=== PATIENT | male | born 1940 | race Caucasian/White ===

== ENCOUNTER → 2016-08-13 | Outpatient (CLI) | payer MEDICARE ==
[~2016-08-13] MED LIST: /ESOM40CA PO; /PANT40TA PO; ADV250INH INH; ALBUTEROL MDI INH; ASCO500T PO; AUGM875T27 PO; BENA25TA4 PO; BISAC5TA PO; CALC950T PO; CELEBREX PO; CIPR500T3 PO; CONRAY-43 43% 50ML VIAL (Q9960) As Ordered ONE; DULC10SU9 PR; FISH1000 PO; FLAG500T PO; FLUTICASONE INH; GLUCOSAMINE PO; LIDOCAINE 1% MDV 20ML VIAL As Ordered ONE; LOPR50TA PO; MOM30SS PO; MONT10TA2 PO; MULTTAB4 PO; NIFEDIPINE PO; OXYC5CAP2 PO; PERCOCET PO; SALMETEROL INH; SENO8.6T9 PO; SIME80TA PO; SIMV80TA PO; SING5CHW PO; TIMO0.5S7 OU; TYLE325T5 PO; WARF05TA PO; methylPREDNISolone SUSP 40 MG/ML (DEPO-medrol) VIAL (J1030) As Ordered ONE
--- NOTE | 2016-08-13 18:40 | REP ---
Left hip injection The procedure was performed under the direct supervision of Dr. Smalls. The benefits and risks including but not limited to pain infection and bleeding and anaphylaxis were explained to the patient and informed consent was obtained. The left femoral neck was localized using fluoroscopic guidance. The skin was prepped and draped in a sterile fashion. 1% lidocaine was used as a local anesthetic. Using fluoroscopic guidance a 22-gauge spinal needle was inserted and advanced to the femoral neck. 0.5 ml of Conray 43 was injected to verify placement. Five ml of a solution containing 3 ml of 1% Xylocaine and 2 ml of Depo-Medrol 40 mg was injected. The needle was then removed. The patient tolerated the procedure well and there were no immediate complications. 3 seconds of fluoro time was utilized for this procedure. Reviewed by XENIA Schmidt 08/13/2016 03:54 PSigned by Brian Smalls MD 08/13/2016 06:32 P
== END ==
LOC: M RADPRO 09:28
PROVIDERS: ATTEND Orthopaedic Surgery
DX: M16.12 Unilateral primary osteoarthritis, left hip (principal)
CPT/HCPCS: 20610; 77002; J1030; Q9960

== ENCOUNTER → 2016-11-13 | Outpatient (REF) | payer MEDICARE ==
[~2016-11-13] MED LIST changes: -CONRAY-43 43% 50ML VIAL (Q9960) As Ordered ONE; -LIDOCAINE 1% MDV 20ML VIAL As Ordered ONE; -methylPREDNISolone SUSP 40 MG/ML (DEPO-medrol) VIAL (J1030) As Ordered ONE
[2016-11-13 12:24] LABS: MEAN CORPUSCULAR HEMOGLOBIN 35.7 pg (27.0-33.0); MEAN CORPUSCULAR HGB CONC 34.4 g/dl (32.0-36.5); MEAN CORPUSCULAR VOLUME 103.8 fl (80.0-96.0); RED CELL DISTRIBUTION WIDTH 13.5 % (11.5-14.5); WHITE BLOOD COUNT 4.6 K/mm3 (4.0-10.0)
[2016-11-13 13:45] LABS: ALBUMIN 4.1 GM/DL (3.2-5.2); ALBUMIN/GLOBULIN RATIO 1.41 (1.00-1.93); ALKALINE PHOSPHATASE 67 U/L (45-117); ALT/SGPT 45 U/L (12-78); ANION GAP 8 MEQ/L (8-16); AST/SGOT 26 U/L (15-37); BILIRUBIN,TOTAL 0.7 MG/DL (0.2-1.0); BLOOD UREA NITROGEN 9 MG/DL (7-18); CALCIUM LEVEL 8.7 MG/DL (8.8-10.2); CARBON DIOXIDE LEVEL 31 MEQ/L (21-32); CHLORIDE LEVEL 101 MEQ/L (98-107); CHOLESTEROL LEVEL 190 MG/DL (<200); CREATININE FOR GFR 0.96 MG/DL (0.70-1.30); GLOMERULAR FILTRATION RATE > 60.0 (>42); GLUCOSE, FASTING 101 MG/DL (83-110); POTASSIUM SERUM 4.1 MEQ/L (3.5-5.1); SODIUM LEVEL 140 MEQ/L (136-145); TRIGLYCERIDES LEVEL 74 MG/DL (<150)
== END ==
LOC: M LABDRAW1 11:48
PROVIDERS: ATTEND Family Medicine
DX: I10 Essential (primary) hypertension (principal); N40.0 Benign prostatic hyperplasia without lower urinary tract symptoms; R53.83 Other fatigue
CPT/HCPCS: 80053; 80061; 84443; 85027; G0103

== ENCOUNTER 2017-02-16 12:38 | Emergency (ER) | payer OTHER, MEDICARE ==
[~2017-02-16] VITALS: Ht 177.8 cm; Wt 72.7 kg
[2017-02-16] MEDS ORDERED: DIGO0.12 (13:08)
[2017-02-16] MEDS ORDERED: XARE20TA PO (13:09)
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
[2017-02-16 14:51] VITALS: BP 128/72
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
== END 2017-02-16 15:13 | disposition home or self-care (01) ==
LOC: M ED 12:38
DX: S16.1XXA Strain of muscle, fascia and tendon at neck level, initial encounter (principal); S13.4XXA Sprain of ligaments of cervical spine, initial encounter; V49.40XA Driver injured in collision with unspecified motor vehicles in traffic accident, initial encounter; Y92.410 Unspecified street and highway as the place of occurrence of the external cause; Y93.89 Activity, other specified; Y99.9 Unspecified external cause status

== ENCOUNTER → 2017-09-23 | Outpatient (CLI) | payer OTHER ==
[2017-09-23 10:19] LABS: HEMATOCRIT 42.8 % (42.0-52.0); HEMOGLOBIN 14.5 g/dl (14.0-18.0); MEAN CORPUSCULAR HEMOGLOBIN 34.9 pg (27.0-33.0); MEAN CORPUSCULAR HGB CONC 33.9 g/dl (32.0-36.5); MEAN CORPUSCULAR VOLUME 102.9 fl (80.0-96.0); PLATELET COUNT, AUTOMATED 215 10^3/uL (150-450); RED BLOOD COUNT 4.16 10^6/uL (4.30-6.10); RED CELL DISTRIBUTION WIDTH 13.7 % (11.5-14.5); WHITE BLOOD COUNT 4.4 10^3/uL (4.0-10.0)
[2017-09-23 10:55] LABS: ALBUMIN 4.1 GM/DL (3.2-5.2); ALBUMIN/GLOBULIN RATIO 1.24 (1.00-1.93); ALKALINE PHOSPHATASE 116 U/L (45-117); ALT/SGPT 33 U/L (12-78); ANION GAP 6 MEQ/L (8-16); AST/SGOT 27 U/L (7-37); BILIRUBIN,TOTAL 0.8 MG/DL (0.2-1.0); BLOOD UREA NITROGEN 11 MG/DL (7-18); CALCIUM LEVEL 9.6 MG/DL (8.8-10.2); CARBON DIOXIDE LEVEL 34 MEQ/L (21-32); CHLORIDE LEVEL 103 MEQ/L (98-107); CHOLESTEROL LEVEL 216 MG/DL (<200); CHOLESTEROL RISK RATIO 3.042 (<5); CREATININE FOR GFR 0.91 MG/DL (0.70-1.30); GLOMERULAR FILTRATION RATE > 60.0 (>42); GLUCOSE, FASTING 90 MG/DL (70-100); HDL CHOLESTEROL 71 MG/DL (>40); LDL CHOLESTEROL 127.2 MG/DL (<100); NON-HDL-C 145 MG/DL; POTASSIUM SERUM 4.3 MEQ/L (3.5-5.1); PROSTATIC SPECIFIC AG MONITOR 2.28 NG/ML (< 4.0); SODIUM LEVEL 143 MEQ/L (136-145); TOTAL PROTEIN 7.4 GM/DL (6.4-8.2); TRIGLYCERIDES LEVEL 89 MG/DL (<150)
[2017-09-23 11:01] LABS: ESTIMATED AVERAGE GLUCOSE 108 MG/DL (60-110); HEMOGLOBIN A1c 5.4 %
== END ==
LOC: M LAB 09:28
DX: R53.83 Other fatigue (principal); I10 Essential (primary) hypertension; J44.9 Chronic obstructive pulmonary disease, unspecified
CPT/HCPCS: 71046

== ENCOUNTER → 2018-08-24 | Outpatient (CLI) | payer MEDICARE, OTHER ==
[~2018-08-24] MED LIST changes: +DIGO0.12; +XARE20TA PO
--- NOTE | 2018-08-26 11:06 | RADONC ---
RADIATION ONCOLOGY CONSULTATION NOTE DATE: 08/24/2018 CHART #: [id number] DIAGNOSIS: Basal cell carcinoma of the right cheek. ECOG PERFORMANCE STATUS: 0. CONSULTATION NOTE: Mr. Menendez is a very pleasant 78-year-old white male with the diagnosis of a small basal cell carcinoma of the right cheek who is presenting to us status post excision for consideration of postoperative radiation therapy in attempt to increase the likelihood of achieving local control and cure. HISTORY OF PRESENT ILLNESS: The patient was in his usual state of health and noted a small lesion over his right cheek. On 07/29/2018, the patient underwent excision and pathology revealed a basal cell carcinoma with focal surface ulceration and focal extension to the deep surgical margins at both ends. He is therefore being referred to me for consideration of external beam radiation therapy. PAST MEDICAL HISTORY: The patient's past medical history is positive for Raynaud's. He also has arthritis and cataracts. He has had bilateral cataract surgery. He has a history of cardiac problems and thyroid issues. He had a cholecystectomy as well as carpal tunnel surgery and left knee replacement. ALLERGIES: The patient has NO KNOWN DRUG ALLERGIES. SOCIAL HISTORY: The patient quit smoking in 1969. He had smoked 15 years. He does not abuse alcohol. FAMILY HISTORY: The patient's family history is negative for skin cancers or other malignancies. REVIEW OF SYSTEMS: The patient's review of systems is positive for some occasional chills as well as hearing loss but is otherwise noncontributory. Denies nausea, vomiting, fevers, chills, night sweats, diplopia, headaches, anxiety or depression, anorexia, weight loss, visual disturbances, chest pain, urinary or bowel difficulties, bone pain, or neurological problems. PHYSICAL EXAMINATION: The patient is a well-developed, well-nourished white male in no acute distress. HEENT: Exam is normocephalic, atraumatic. Extraocular movements are intact. There is a healed surgical scar present over his right cheek consistent with his above history. There are no other suspicious lesions present over his face or neck. There is no palpable preauricular, cervical, supraclavicular or infraclavicular lymphadenopathy present. His lungs are clear to auscultation and percussion. His heart has a regular rate and rhythm. ASSESSMENT: Mr. Menendez is presenting to us today with a basal cell carcinoma involving his right cheek with multiple positive margins status post excision. Clearly, the patient is a candidate for external beam radiation therapy and I have so informed him. I have discussed with the patient in detail the potential benefits as well as possible acute and chronic sequelae of external beam radiation therapy. We have discussed logistics of treatment planning, simulation and subsequent fractionated daily radiation treatments. I have scheduled the patient for the next available simulation slot and radiation treatments will begin subsequently. Thank you for allowing us to participate in the care of this very pleasant gentleman. If I could be of any further assistance or provide you with any information, please feel free to contact me at anytime. As always warm regards. cc: Lopez Connor MD
== END ==
LOC: M ONCR 09:50
PROVIDERS: ATTEND Radiology Radiation Oncology
DX: C44.319 Basal cell carcinoma of skin of other parts of face (principal)

== ENCOUNTER → 2018-09-16 | Outpatient (RCR) | payer MEDICARE ==
--- NOTE | 2018-08-27 13:39 | RADONC ---
RADIATION ONCOLOGY SIMULATION NOTE DATE: 08/26/2018 CHART NUMBER: [id number] Mr. Menendez was taken to the linear accelerator today for clinical setup of his electron beam right cheek field. Setup was accomplished without difficulty or discomfort. Radiation treatment planning is underway and radiation treatments will begin subsequently. An immobilization device was created without difficulty or discomfort. It will be used throughout the course of treatment. I was physically present throughout the course of CT simulation.
--- NOTE | 2018-09-07 19:42 | RADONC ---
RADIATION ONCOLOGY PROGRESS NOTE DATE OF SERVICE: 09/06/2018 CHART NUMBER: [id number]. DIAGNOSIS: Basal cell carcinoma, right cheek ECOG PERFORMANCE STATUS: Zero. PROGRESS NOTE: Mr. Menendez with a diagnosis of basal cell carcinoma of the right cheek is being treated post excision to prevent a local regional recurrence and his dose thus far is 1250 cGy of an anticipated 5000 cGy. He is tolerating his therapy quite well. REVIEW OF SYSTEMS: He denies any nausea, vomiting, coughing, sputum production, difficulty swallowing, odynophagia, or dysphagia. The remainder of the review of systems is noncontributory. PHYSICAL EXAMINATION: No evidence of desquamation or erythema. No adenopathy is appreciated. The remainder of the physical examination is unchanged. IMPRESSION: Tolerating therapy well. PLAN: Treatments to continue. Thank you for allowing us the opportunity of participation in the management of this patient. Most sincerely.
--- NOTE | 2018-09-14 08:38 | RADONC ---
RADIATION ONCOLOGY PROGRESS NOTE DATE OF SERVICE: 09/13/2018 CHART NUMBER: [id number]. PROGRESS NOTE: Mr. Menendez is presently at a dose of 2500 cGy to his right cheek and is tolerating treatments quite well at this point with no complaints related to his radiation therapy. He is having no skin pain or other problems. REVIEW OF SYSTEMS: The patient's review of systems is noncontributory. He denies nausea, vomiting, fevers, chills, night sweats, diplopia, headaches, anxiety or depression, anorexia, weight loss, visual disturbances, chest pain, urinary or bowel difficulties, bone pain, or neurological problems. PHYSICAL EXAMINATION: The patient's skin is in good condition with no evidence of moist or dry desquamation. The remainder of his physical exam remains unchanged. Mr. Menendez is tolerating treatments quite well, and radiation will continue as scheduled.
== END ==
LOC: M ONCR 08-26 11:38
PROVIDERS: ATTEND Radiology Radiation Oncology
DX: C44.309 Unspecified malignant neoplasm of skin of other parts of face (principal)

== ENCOUNTER 2018-09-27 09:29 | Outpatient (RCR) | payer MEDICARE ==
--- NOTE | 2018-09-21 09:46 | RADONC ---
RADIATION ONCOLOGY DATE: 09/20/2018 CHART NUMBER: [id number] Mr. Menendez is presently at a dose of 3750 cGy to his right cheek and is tolerating treatments quite well at this point with no complaints related to his radiation therapy other than some tenderness of the skin. REVIEW OF SYSTEMS: The patient's review of systems is basically noncontributory. He denies nausea, vomiting, fevers, chills, night sweats, diplopia, headaches, anxiety or depression, anorexia, weight loss, visual disturbances, chest pain, urinary or bowel difficulties, bone pain, or neurological problems. PHYSICAL EXAMINATION: The patient's skin overall is in good condition with no evidence of moist or dry desquamation. There is some radiation tanning and erythema present. The remainder of his physical exam remains unchanged. Mr. Menendez is tolerating treatments quite well and radiation will continue as scheduled.
--- NOTE | 2018-09-28 15:24 | RADONC ---
RADIATION ONCOLOGY TREATMENT SUMMARY DATE OF SERVICE: 09/27/2018 CHART NUMBER: #[id number] DIAGNOSIS: Basal cell carcinoma of the right cheek. ECOG PERFORMANCE STATUS: 0 TREATMENT SUMMARY: Mr. Menendez is a very pleasant, 78-year-old white male with the diagnosis of a small basal cell carcinoma of his right cheek who presented to us for consideration of postoperative radiation therapy in attempt to achieve local control and cure. We treated the patient to his right cheek for a total dose of 5000 cGy delivered in 20 fractions of 250 cGy each over 27 elapsed days from 08/31/2018 through 09/27/2018. The patient's right cheek was treated on the linear accelerator utilizing a 6 MeV electron beam prescribed to the 90% isodose line via non phos technique. 0.5 cm of tissue equivalent bolus was placed over the field. Mr. Menendez tolerated his treatments quite well and was able to complete therapy as prescribed without interruption. The patient is scheduled see me again in 1 month for further followup. He will also continue to be followed by his other physicians as well. Thank you for allowing us to participate in the care of this very pleasant gentleman. If I can be of any further assistance or provide you with any information, please feel free to contact me anytime. As always, warm regards.
== END 2018-10-17 ==
LOC: M ONCR 09:29
PROVIDERS: ATTEND Radiology Radiation Oncology
DX: C44.309 Unspecified malignant neoplasm of skin of other parts of face (principal)

== ENCOUNTER → 2018-10-27 | Outpatient (CLI) | payer MEDICARE ==
[~2018-10-27] MED LIST changes: -/ESOM40CA PO; -/PANT40TA PO; +NEXI1CAP3 PO; +OXYC1TAB23 PO; -PERCOCET PO; +PROT1TAB2 PO
--- NOTE | 2018-10-27 11:28 | RADONC ---
RADIATION ONCOLOGY FOLLOWUP NOTE DATE: 10/27/2018 CHART NUMBER: [id number] DIAGNOSIS: Basal cell carcinoma of right cheek. ECOG PERFORMANCE STATUS: 0. FOLLOWUP NOTE: Mr. Menendez is a very pleasant 78-year-old white male with the diagnosis of a small basal cell carcinoma of his right cheek who is presenting to us today for routine followup visit 1 month post completion of external beam radiation therapy. The patient presents today reporting that he is doing quite well with no complaints at this time related to his radiation therapy or disease. He has no skin pain or other problems. The patient's review of systems is noncontributory. He denies nausea, vomiting, fevers, chills, night sweats, diplopia, headaches, anxiety or depression, anorexia, weight loss, visual disturbances, chest pain, urinary or bowel difficulties, bone pain, or neurological problems. PHYSICAL EXAMINATION: The patient's skin is in excellent condition with no evidence of moist or dry desquamation. There is no nodularity, ulceration, or residual disease. There is no palpable, preauricular, cervical, supraclavicular, or axillary lymphadenopathy present. ASSESSMENT: The patient is clinically HONEY at this time and is being discharged from our followup except on an as needed basis. He will continue his followup with his other physicians in the meantime. cc: Lopez Connor MD
== END ==
LOC: M ONCR 09:25
PROVIDERS: ATTEND Radiology Radiation Oncology
DX: C44.309 Unspecified malignant neoplasm of skin of other parts of face (principal)

== ENCOUNTER 2019-03-01 16:21 | Emergency (ER) | payer MEDICARE ==
[~2019-03-01] VITALS: Ht 182.9 cm; Wt 72.0 kg
[2019-03-01 16:21] VITALS: BP 149/65
[~2019-03-01 16:21] MED LIST changes: -DIGO0.12; +DIGO0.12 PO
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
== END 2019-03-01 18:44 | disposition home or self-care (01) ==
LOC: M ED 16:21
DX: S00.81XA Abrasion of other part of head, initial encounter (principal); S00.83XA Contusion of other part of head, initial encounter; W18.39XA Other fall on same level, initial encounter; Y92.410 Unspecified street and highway as the place of occurrence of the external cause; I10 Essential (primary) hypertension; I48.91 Unspecified atrial fibrillation; Z79.899 Other long term (current) drug therapy; Z79.01 Long term (current) use of anticoagulants

== ENCOUNTER 2019-03-15 08:29 | Emergency (ER) | payer OTHER, MEDICARE ==
[~2019-03-15] VITALS: Ht 177.8 cm; Wt 70.5 kg
[2019-03-15] MEDS ORDERED: NIAC500T9 PO (08:44)
[2019-03-15] MEDS ORDERED: CALCCHW4 PO (08:44)
[2019-03-15] MEDS ORDERED: VITA500C24 PO (08:44)
[2019-03-15] MEDS ORDERED: MULTCAP PO (08:44)
[2019-03-15] MEDS ORDERED: D 101000 PO (08:44)
[2019-03-15] MEDS ORDERED: REST0.05 OP (08:45)
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
[2019-03-15 10:08] VITALS: BP 137/63
== END 2019-03-15 10:07 | disposition home or self-care (01) ==
LOC: EDSEX 08:29 → EDBD 08:29 → M ED 09:12
DX: S09.90XA Unspecified injury of head, initial encounter (principal); V47.0XXA Car driver injured in collision with fixed or stationary object in nontraffic accident, initial encounter; Y92.410 Unspecified street and highway as the place of occurrence of the external cause; I48.91 Unspecified atrial fibrillation; I10 Essential (primary) hypertension; J44.9 Chronic obstructive pulmonary disease, unspecified; G47.30 Sleep apnea, unspecified; Z87.19 Personal history of other diseases of the digestive system; Z79.899 Other long term (current) drug therapy; Z79.01 Long term (current) use of anticoagulants

== ENCOUNTER → 2019-05-11 | Outpatient (REF) | payer MEDICARE, OTHER ==
[~2019-05-11] MED LIST changes: +CALCCHW4 PO; +D 101000 PO; +MULTCAP PO; +NIAC500T9 PO; +REST0.05 OP; +VITA500C24 PO
[2019-05-11 12:42] LABS: HEMATOCRIT 36.8 % (42.0-52.0); HEMOGLOBIN 12.2 g/dl (13.5-17.5); MEAN CORPUSCULAR HEMOGLOBIN 36.6 pg (27.0-33.0); MEAN CORPUSCULAR HGB CONC 33.2 g/dl (32.0-36.5); MEAN CORPUSCULAR VOLUME 110.5 fl (80.0-96.0); PLATELET COUNT, AUTOMATED 177 10^3/uL (150-450); RED BLOOD COUNT 3.33 10^6/uL (4.30-6.10); WHITE BLOOD COUNT 8.4 10^3/uL (4.0-10.0)
[2019-05-11 13:19] LABS: ERYTHROCYTE SEDIMENTATION RATE 17 mm/hr (0-20)
[2019-05-11 14:00] LABS: ATYPICAL LYMPH 1 % (0-5); BASOPHILS 1 % (0-1); LYMPHOCYTES 34 % (16-44); METAMYELOCYTES 1 % (0-0); MONOCYTES 1 % (0-5); MYELOCYTES 3 % (0-0); NEUTROPHILS 57 % (28-66); NUCLEATED RED BLOOD CELL 1 % (0-0)
[2019-05-11 14:01] LABS: HYPOCHROMASIA 1+; PLATELET ESTIMATE NORMAL (NORMAL)
[2019-05-11 14:02] LABS: ANISOCYTOSIS 2+
== END ==
LOC: M LABDRAW1 12:08
PROVIDERS: ATTEND Orthopaedic Surgery
DX: Z96.652 Presence of left artificial knee joint (principal)

== ENCOUNTER → 2019-12-24 | Outpatient (CLI) | payer MEDICARE ==
[2019-12-24 09:02] LABS: HEMATOCRIT 33.3 % (42.0-52.0); HEMOGLOBIN 10.5 g/dl (13.5-17.5); MEAN CORPUSCULAR HEMOGLOBIN 34.8 pg (27.0-33.0); MEAN CORPUSCULAR HGB CONC 31.5 g/dl (32.0-36.5); MEAN CORPUSCULAR VOLUME 110.3 fl (80.0-96.0); PLATELET COUNT, AUTOMATED 186 10^3/uL (150-450); RED BLOOD COUNT 3.02 10^6/uL (4.30-6.10); WHITE BLOOD COUNT 4.6 10^3/uL (4.0-10.0)
[2019-12-24 09:33] LABS: ALBUMIN 3.7 GM/DL (3.2-5.2); ALT/SGPT 33 U/L (12-78); BILIRUBIN,TOTAL 0.7 MG/DL (0.2-1.0); BLOOD UREA NITROGEN 12 MG/DL (7-18); CALCIUM LEVEL 8.7 MG/DL (8.8-10.2); CARBON DIOXIDE LEVEL 30 MEQ/L (21-32); CHLORIDE LEVEL 107 MEQ/L (98-107); CHOLESTEROL LEVEL 138 MG/DL (<200); GLOMERULAR FILTRATION RATE > 60.0 (>35); GLUCOSE, FASTING 93 MG/DL (70-100); HDL CHOLESTEROL 60 MG/DL (>40); LDL CHOLESTEROL 66 MG/DL (<100); NON-HDL-C 78 MG/DL; POTASSIUM SERUM 4.1 MEQ/L (3.5-5.1); SODIUM LEVEL 143 MEQ/L (136-145); TOTAL PROTEIN 6.4 GM/DL (6.4-8.2); TRIGLYCERIDES LEVEL 59 MG/DL (<150)
[2019-12-26 10:48] LABS: TESTOSTERONE 671 NG/DL (241-827)
== END ==
LOC: M LAB 08:07
PROVIDERS: ATTEND Family Medicine
DX: I10 Essential (primary) hypertension (principal); E03.9 Hypothyroidism, unspecified; N40.0 Benign prostatic hyperplasia without lower urinary tract symptoms
CPT/HCPCS: 36415; 80053; 80061; 84403; 84443; 85027; G0103

== ENCOUNTER 2020-05-28 19:29 | Inpatient (IN) | payer MEDICARE ==
[~2020-05-28] VITALS: Ht 177.8 cm; Wt 69.3 kg
[~2020-05-28 19:29] MED LIST changes: -NIAC500T9 PO; +NIAC500T93 PO
[2020-05-28 20:50] LABS: HEMATOCRIT 21.4 % (42.0-52.0); MEAN CORPUSCULAR HEMOGLOBIN 34.7 pg (27.0-33.0); MEAN CORPUSCULAR HGB CONC 30.8 g/dl (32.0-36.5); MEAN CORPUSCULAR VOLUME 112.6 fl (80.0-96.0); PLATELET COUNT, AUTOMATED 144 10^3/uL (150-450); WHITE BLOOD COUNT 4.5 10^3/uL (4.0-10.0)
--- NOTE | 2020-05-28 20:51 | REPVR ---
PROCEDURE INFORMATION: Exam: XR Chest, 1 View Exam date and time: 05/28/2020 8:41 PM Age: 80 years old Clinical indication: Chest pain; Type not specified TECHNIQUE: Imaging protocol: XR of the chest Views: 1 view. COMPARISON: CR Chest, 2 view PA, Lat 09/23/2017 9:57 AM FINDINGS: Lungs: Unremarkable. No consolidation. Pleural space: Bibasilar pleural calcifications. Heart/Mediastinum: Cardiomegaly. Bones/joints: Unremarkable. IMPRESSION: 1. Cardiomegaly. 2. No acute findings. Electronically signed by: Bertram Lara On 05/28/2020 20:51:06 PM
[2020-05-28 21:00] LABS: HEMOGLOBIN 6.6 g/dl (13.5-17.5)
[2020-05-28 21:02] LABS: INR 1.6; PROTHROMBIN TIME 19.4 SECONDS (12.5-14.3)
[2020-05-28 21:03] LABS: PARTIAL THROMBOPLASTIN TIME 35.8 SECONDS (24.2-38.5)
[2020-05-28 21:13] LABS: ANISOCYTOSIS 2+; BASOPHILS 2 % (0-1); EOSINOPHILS 1 % (0-3); LYMPHOCYTES 32 % (16-44); METAMYELOCYTES 1 % (0-0); MONOCYTES 15 % (0-5); MYELOCYTES 2 % (0-0); NEUTROPHILS 47 % (28-66); PLATELET ESTIMATE NORMAL (NORMAL)
[2020-05-28 21:14] LABS: HYPOCHROMASIA 1+
[2020-05-28 21:17] LABS: GIANT PLATELETS 1+
[2020-05-28 21:29] LABS: BLOOD UREA NITROGEN 19 MG/DL (7-18); CALCIUM LEVEL 8.4 MG/DL (8.8-10.2); CARBON DIOXIDE LEVEL 29 MEQ/L (21-32); CHLORIDE LEVEL 107 MEQ/L (98-107); CK-MB VALUE MASS 1.4 NG/ML (<3.6); CPK CREATINE PHOSPHOKINASE 46 U/L (39-308); CREATININE FOR GFR 0.82 MG/DL (0.70-1.30); DIGOXIN LEVEL < 0.1 NG/ML (0.5-2.0); GLOMERULAR FILTRATION RATE > 60.0 (>35); GLUCOSE, FASTING 118 MG/DL (70-100); MB/CK RELATIVE INDEX 3.04 (< OR =4); NT-PRO BNP 2957 PG/ML (<450); POTASSIUM SERUM 4.3 MEQ/L (3.5-5.1); SODIUM LEVEL 141 MEQ/L (136-145); TROPONIN I 0.02 NG/ML (< 0.10)
[2020-05-28 22:29] VITALS: BP 108/54
[2020-05-28] MEDS ORDERED: GLUCTAB6 PO (22:45)
[2020-05-28] MEDS ORDERED: D31000TA2 PO (22:45)
[2020-05-28] MEDS ORDERED: ASCO500T PO (22:45)
[2020-05-28] MEDS ORDERED: TIMO0.5S29 OU (22:45)
[2020-05-28] MEDS ORDERED: OYST500T91 PO (22:45)
[2020-05-28] MEDS ORDERED: SIMV40TA20 PO (22:45)
[2020-05-28] MEDS ORDERED: REST0.05 OU (22:45)
[2020-05-28] MEDS ORDERED: OMEG10005 PO (22:45)
[2020-05-28] MEDS ORDERED: VITMTA PO (22:45)
[2020-05-28] MEDS ORDERED: MECL12.589 PO (22:45)
[2020-05-28] MEDS ORDERED: DOXY50TA3 PO (22:45)
[2020-05-28 22:46] VITALS: BP 105/52
[2020-05-28] MEDS ORDERED: PATIENT COMMENT (22:46)
[2020-05-28 23:27] VITALS: BP 124/58
[2020-05-28 23:29] VITALS: BP 118/57
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
[2020-05-29] VITALS (20 sets, daily range): BP systolic 97–130; BP diastolic 51–78
[2020-05-29] MEDS ORDERED: MOM 30ML SUSPENSION UDC PO PRN (01:00)
[2020-05-29] MEDS ORDERED: ACETAMINOPHEN TAB 650MG DOSE (2X325MG) PO PRN (01:00)
[2020-05-29] MEDS: PANTOPRAZOLE 40MG VIAL (C9113 PER 1) IV SCH ×3 (01:35→23:29)
[2020-05-29 02:50] LABS: BASO # 0.1 10^3/uL (0.0-0.2); BASO % 1.6 % (0.0-1.0); EOS # 0.1 10^3/uL (0.0-0.5); EOS % 1.8 % (0.0-3.0); HEMATOCRIT 27.4 % (42.0-52.0); LYMPH # 1.1 10^3/uL (1.5-5.0); MEAN CORPUSCULAR HEMOGLOBIN 32.2 pg (27.0-33.0); MEAN CORPUSCULAR HGB CONC 31.8 g/dl (32.0-36.5); MEAN CORPUSCULAR VOLUME 101.5 fl (80.0-96.0); MONO # 1.5 10^3/uL (0.0-0.8); NEUTROPHILS # 2.1 10^3/uL (1.5-8.5); NEUTROPHILS % 41.1 % (36.0-66.0); PLATELET COUNT, AUTOMATED 142 10^3/uL (150-450); WHITE BLOOD COUNT 5.1 10^3/uL (4.0-10.0)
[2020-05-29 03:00] LABS: HEMOGLOBIN 8.7 g/dl (13.5-17.5)
[2020-05-29 06:53] LABS: HEMOGLOBIN 8.3 g/dl (13.5-17.5); MEAN CORPUSCULAR HEMOGLOBIN 32.4 pg (27.0-33.0); MEAN CORPUSCULAR HGB CONC 31.9 g/dl (32.0-36.5); MEAN CORPUSCULAR VOLUME 101.6 fl (80.0-96.0); PLATELET COUNT, AUTOMATED 138 10^3/uL (150-450); RED BLOOD COUNT 2.56 10^6/uL (4.30-6.10); WHITE BLOOD COUNT 5.2 10^3/uL (4.0-10.0)
[2020-05-29 07:21] LABS: BLOOD UREA NITROGEN 18 MG/DL (7-18); CALCIUM LEVEL 8.2 MG/DL (8.8-10.2); CARBON DIOXIDE LEVEL 26 MEQ/L (21-32); CHLORIDE LEVEL 109 MEQ/L (98-107); CREATININE FOR GFR 0.76 MG/DL (0.70-1.30); GLOMERULAR FILTRATION RATE > 60.0 (>35); GLUCOSE, FASTING 93 MG/DL (70-100); NT-PRO BNP 3062 PG/ML (<450); POTASSIUM SERUM 3.9 MEQ/L (3.5-5.1); SODIUM LEVEL 142 MEQ/L (136-145)
[2020-05-29] MEDS: SYMBICORT 160/4.5MCG INHALER 6GM INH SCH ×2 (07:55→20:22)
[2020-05-29] MEDS: SIMVASTATIN 40 MG TAB PO SCH (08:32)
[2020-05-29] MEDS: TIMOLOL MALEATE 0.5% OPHTH SOLN 5 ML OU SCH (08:32)
[2020-05-29] MEDS: SUCRALFATE SUSP 1GM/10ML UD PO SCH ×4 (08:32→23:28)
[2020-05-29 11:40] LABS: FERRITIN 391 NG/ML (26-388); IRON (FE) 220 UG/DL (65-175); PERCENT SATURATION 92.4 % (19.7-50.0); TOTAL IRON BINDING CAPACITY 238 UG/DL (250-450); TOTAL PROTEIN 5.5 GM/DL (6.4-8.2)
[2020-05-29 12:14] LABS: HEMATOCRIT 28.4 % (42.0-52.0); HEMOGLOBIN 8.8 g/dl (13.5-17.5)
--- NOTE | 2020-05-29 14:26 | ECGEPIP ---
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
[2020-05-29 15:15] LABS: ALBUMIN % 64.1 % (55.8-66.1)
[2020-05-29 15:16] LABS: ALBUMIN 3.53 GM/DL (3.29-5.55); ALPHA-1-GLOBULIN % 4.3 % (2.9-4.9); ALPHA-1-GLOBULINS 0.24 GM/DL (0.17-0.41); ALPHA-2-GLOBULINS 0.51 GM/DL (0.42-0.99); ALPHA-2-GLOBULINS % 9.2 % (7.1-11.8); BETA-1-GLOBULINS 0.31 GM/DL (0.28-0.60); BETA-1-GLOBULINS % 5.7 % (4.7-7.2); BETA-2-GLOBULINS 0.25 GM/DL (0.19-0.55); BETA-2-GLOBULINS % 4.6 % (3.2-6.5); GAMMA GLOBULIN % 12.1 % (11.1-18.8); GAMMA GLOBULINS 0.67 GM/DL (0.65-1.58)
[2020-05-29 18:09] LABS: HEMATOCRIT 28.2 % (42.0-52.0); HEMOGLOBIN 8.8 g/dl (13.5-17.5)
--- NOTE | 2020-05-29 18:57 | IPNPDOC ---
Text Note Date of Service The patient was seen on 05/29/20. NOTE Subjective: No complaints this morning but says has not been out of bed yet so does not know if he will get SOB on walking or not. Denies any overt bleeding from anywhere. He denies having any liquid black stools of bright red blood stools. PHYSICAL EXAMINATION: VItals :As below. Constitutional: Awake and alert, in no apparent distress ENT: Sclera are clear. Mucosa is moist. Respiratory: Bibasilar basal fibrotic crackles. No respiratory distress. No use of accessory muscles. Breathing comfortably on room air saturating 98% Cardiovascular: Heart rate is regular, 2+ systolic murmur, no rub or gallop Gastrointestinal: Abdomen is soft, non distended, non tender, BS present. Musculoskeletal: No edema. RUE 5/5, LUE 5/5, BLE 5/5 Neurologic: No focal neurological deficit. Mental Status: A&O x3, normal affect Skin: Warm, dry Labs and radiology: reviewed Assessment and Plan: 80M PMHx COPD, HTN, paroxysmal A fib, glaucoma, Chronic anemia from 2018 presents to ED for dizziness and weakness and exertional SOB at home for several days. He was found to have a hb of 6.6 with no overt bleeding but had a positive stool guaic. Last colonoscopy was 20 years ago he is unsure of the results but thinks they were normal. HE was admitted for symptomatic anemia. # Symptomatic anemia: Macrocytic. s/p 2 units of PRBC, will give another unit. will check vit B12, Iron studies, SPEP, folate, stool for occult blood. Does not seem to be having any large onging GIB as H/H responded appropriately to PRBC transfusion and has been stable with stable vitals. However may be having a slow GIB. Patient will need Colonoscopy and EGD which will be scheduled as an outpatient Had EGD and colonoscopy in [address] Prakash. will need a hematology referral. COPD/ Bibasilar pleural calcification/pulmonary hypertension continue home inhalers. Elevated BNP/ Mild aortic stenosis However echo reviewed from 2012 reveals mild calcific aortic stenosis with recommended follow up study in 2 years, Therefore due to concern of progression of his aortic stenosis as a possible contributor to his symptoms new echo ordered. HTN: Currently normotensive. Monitor and titrate medications as needed. Paroxysmal Afib: EKG in ED showing NSR. Regular HR on exam. On xarelto. H/o Choledocolithiasis s/p ERCP, sphincterotomy and biliary stent placement and removal in 2012 DVT prophylaxis: SCDs only due to GI bleed VS,Fishbone, I+O VS, Fishbone, I+O Laboratory Tests 05/28/20 20:43 05/29/20 02:37 05/29/20 05:50 Vital Signs Date Time Temp Pulse Resp B/P (MAP) Pulse Ox O2 Delivery O2 Flow Rate FiO2 05/29/20 08:00 98.4 72 16 118/56 (76) 99 Room Air I&O- Last 24 Hours up to 6 AM 05/29/20 05:59 Intake Total 1150 ml Output Total 0 ml Balance 1150 ml SHAWN HUTCHISON MD May 29, 2020 10:03
[2020-05-29] MEDS ORDERED: FUROSEMIDE 20MG/2ML VIAL (J1940) IV ONE (19:00)
[2020-05-29] MEDS: SENOKOT S TAB PO SCH (23:29)
[2020-05-30 00:10] LABS: HEMATOCRIT 32.5 % (42.0-52.0); HEMOGLOBIN 10.6 g/dl (13.5-17.5)
[2020-05-30 00:26] VITALS: BP 114/74
[2020-05-30 06:00] VITALS: BP 106/70
[2020-05-30 06:24] LABS: BASO # 0.1 10^3/uL (0.0-0.2); BASO % 1.5 % (0.0-1.0); EOS # 0.1 10^3/uL (0.0-0.5); EOS % 1.5 % (0.0-3.0); HEMOGLOBIN 10.3 g/dl (13.5-17.5); LYMPH % 17.1 % (24.0-44.0); MEAN CORPUSCULAR HEMOGLOBIN 32.2 pg (27.0-33.0); MEAN CORPUSCULAR HGB CONC 32.2 g/dl (32.0-36.5); MONO # 2.1 10^3/uL (0.0-0.8); MONO % 34.5 % (0.0-5.0); NEUTROPHILS # 2.5 10^3/uL (1.5-8.5); NEUTROPHILS % 41.2 % (36.0-66.0); PLATELET COUNT, AUTOMATED 150 10^3/uL (150-450)
[2020-05-30 06:44] LABS: BLOOD UREA NITROGEN 16 MG/DL (7-18); CALCIUM LEVEL 8.9 MG/DL (8.8-10.2); CARBON DIOXIDE LEVEL 31 MEQ/L (21-32); CHLORIDE LEVEL 105 MEQ/L (98-107); CREATININE FOR GFR 0.93 MG/DL (0.70-1.30); GLOMERULAR FILTRATION RATE > 60.0 (>35); GLUCOSE, FASTING 96 MG/DL (70-100); POTASSIUM SERUM 3.7 MEQ/L (3.5-5.1); SODIUM LEVEL 141 MEQ/L (136-145)
[2020-05-30] MEDS: SYMBICORT 160/4.5MCG INHALER 6GM INH SCH ×2 (07:50→19:12)
[2020-05-30] MEDS: SUCRALFATE SUSP 1GM/10ML UD PO SCH ×4 (08:21→20:09)
[2020-05-30] MEDS: SIMVASTATIN 40 MG TAB PO SCH (08:21)
[2020-05-30] MEDS: PANTOPRAZOLE 40MG VIAL (C9113 PER 1) IV SCH ×2 (08:22→20:09)
[2020-05-30] MEDS: SENOKOT S TAB PO SCH ×2 (08:22→20:09)
[2020-05-30] MEDS: TIMOLOL MALEATE 0.5% OPHTH SOLN 5 ML OU SCH (09:29)
--- NOTE | 2020-05-30 10:37 | ECHO ---
DATE OF PROCEDURE: 05/29/2020 Age: 80 Gender: M Height: 178 cm Weight: 68 kg REFERRING PHYSICIAN: Dr. Melchor INDICATION: Dizziness MEASUREMENTS: IVS 0.9 LV 4.4 LVPW 0.9 LA 4.8 Aorta 3.4 RV 3.5 IVC 1.8 Mitral E wave velocity is 131; A wave 100 E prime septal 4.4 E prime lateral 9.5 Left atrial volume index 56 FINDINGS: This study is of difficult technical quality with challenging visualization; underlying sinus rhythm. Left ventricle is normal size and overall has normal systolic function; I estimate ejection fraction (EF) around 60%. No distinct segmental wall motion abnormalities are appreciated. Right ventricle appears at least mildly dilated. Left atrium is severely enlarged. Right atrium appears normal. Aortic valve is heavily calcified. It is likely tricuspid and there is severe restriction of cusp mobility. There are also very prominent degenerative abnormalities of mitral valve with mitral annular calcifications, prominent thickening of both mitral leaflets, and restriction of leaflet mobility. By 2D imaging, I would not expect more than mild mitral stenosis though. There are normal tricuspid and pulmonic valves that were both relatively poorly seen. No pericardial effusion is noted. Inferior vena cava is normal size. Aortic root appears normal. Aortic arch was not well seen. Doppler interrogation of aortic valve reveals trace insufficiency and severe stenosis. Peak gradient was 53, mean gradient 36 and calculated aortic valve area was 0.9 cm2. There was mild mitral stenosis with mean gradient 3 mmHg; also, mild mitral insufficiency was seen. Mild tricuspid insufficiency is present. Calculated pulmonary artery pressure is at minimum in the 30s corresponding to a minimum mild pulmonary hypertension. Pulmonic valve exhibits trace insufficiency. Mitral inflow pattern and tissue Doppler imaging of mitral annulus are inconclusive for evaluation of diastolic dysfunction due to concomitant mitral stenosis. CONCLUSIONS: 1. Study is of fair technical quality with challenging visualization. Underlying sinus rhythm with frequent ectopic beats. 2. Normal left ventricle size with preserved left ventricular systolic function. 3. Probably severe aortic stenosis (mean gradient 36 mmHg, calculated aortic valve area (SHARON) 0.9 cm2), trace aortic insufficiency. 4. Mild mitral stenosis (mean gradient 3 mmHg), mild mitral insufficiency. 5. Likely normal central venous pressure and at least mild pulmonary hypertension. COMMENTS: It is conceivable that aortic stenosis is severe enough to cause symptoms of dizziness. [facility]
--- NOTE | 2020-05-30 13:00 | IPNPDOC ---
Text Note Date of Service The patient was seen on 05/30/20. NOTE Subjective: Patient seeing walking in the corridors with nurse. He looks com fortable walking and no dyspnea noted. No bowel movements in the hospital. No fever or chills. He reports that when ever he tries to lift some weight he was having lower chest pain. PHYSICAL EXAMINATION: VItals :As below. Constitutional: Awake and alert, in no apparent distress ENT: Sclera are clear. Mucosa is moist. Respiratory: Bibasilar basal fibrotic crackles. No respiratory distress. No use of accessory muscles. Breathing comfortably on room air saturating 98% Cardiovascular: Heart rate is regular, 2+ systolic murmur, no rub or gallop Gastrointestinal: Abdomen is soft, non distended, non tender, BS present. Musculoskeletal: No edema. RUE 5/5, LUE 5/5, BLE 5/5 Neurologic: No focal neurological deficit. Mental Status: A&O x3, normal affect Skin: Warm, dry Labs and radiology: reviewed Assessment and Plan: 80M PMHx COPD, HTN, paroxysmal A fib, glaucoma, Chronic anemia from 2018 presents to ED for dizziness and weakness and exertional SOB at home for several days. He was found to have a hb of 6.6 with no overt bleeding but had a positive stool guaic. Last colonoscopy was 20 years ago he is unsure of the results but thinks they were normal. HE was admitted for symptomatic anemia. Dyspnea/ Dizziness Combination of Now severe Aortic stenosis and symptomatic anemia Echo: Probably severe aortic stenosis (mean gradient 36 mmHg, calculated aortic valve area (SHARON) 0.9 cm2), trace aortic insufficiency. Mild mitral stenosis (mean gradient 3 mmHg), mild mitral insufficiency. Mild pulmonary hypertension. s/p prbc transfusion and Lasix. Symptomatic anemia: Macrocytic. s/p 3 units of PRBC will check vit B12, Iron studies, SPEP, folate, stool for occult blood. Does not seem to be having any large onging GIB as H/H responded appropriately to PRBC transfusion and has been stable with stable vitals. However may be having a slow GIB. Patient will need Colonoscopy and EGD will ask for Surgical consult. Had EGD and colonoscopy in [address] Prakash. COPD/ Bibasilar pleural calcification/pulmonary hypertension continue home inhalers. HTN: Currently normotensive. Monitor and titrate medications as needed. Paroxysmal Afib: EKG in ED showing NSR. Regular HR on exam. On xarelto which is now stopped. H/o Choledocolithiasis s/p ERCP, sphincterotomy and biliary stent placement and removal in 2012 DVT prophylaxis: SCDs only due to GI bleed VS,Fishbone, I+O VS, Fishbone, I+O Laboratory Tests 05/29/20 17:56 05/29/20 23:56 05/30/20 06:03 Vital Signs Date Time Temp Pulse Resp B/P (MAP) Pulse Ox O2 Delivery O2 Flow Rate FiO2 05/30/20 06:00 97.8 79 18 106/70 (82) 99 Room Air I&O- Last 24 Hours up to 6 AM 05/30/20 06:00 Intake Total 1780 ml Output Total 2475 ml Balance -695 ml SHAWN HUTCHISON MD May 30, 2020 13:00
[2020-05-30 14:00] VITALS: BP 128/53
[2020-05-30 18:12] LABS: FREE KAPPA LIGHT CHAINS SERUM 18.8 mg/L (3.3-19.4); FREE LAMBDA LIGHT CHAINS SERUM 13.2 mg/L (5.7-26.3); KAPPA/LAMBDA RATIO SERUM 1.42 (0.26-1.65)
[2020-05-30] MEDS ORDERED: DOCUSATE SODIUM 100 MG CAP PO ONE (20:30)
[2020-05-30] MEDS ORDERED: MOM 30ML SUSPENSION UDC PO ONE (20:30)
[2020-05-30] MEDS: SENNA 8.6 MG TAB (SENOKOT) PO SCH (21:41)
[2020-05-30] MEDS: DOCUSATE SODIUM 100 MG CAP PO SCH (21:41)
[2020-05-30 22:00] VITALS: BP 125/61
[2020-05-31] VITALS (8 sets, daily range): BP systolic 121–164; BP diastolic 61–73
[2020-05-31] MEDS ORDERED: GOLYTELY SOLN 4000 ML BTL PO ONE (06:00)
[2020-05-31 06:01] LABS: HEMATOCRIT 29.8 % (42.0-52.0); HEMOGLOBIN 9.4 g/dl (13.5-17.5); MEAN CORPUSCULAR HEMOGLOBIN 31.6 pg (27.0-33.0); MEAN CORPUSCULAR HGB CONC 31.5 g/dl (32.0-36.5); MEAN CORPUSCULAR VOLUME 100.3 fl (80.0-96.0); PLATELET COUNT, AUTOMATED 143 10^3/uL (150-450); RED BLOOD COUNT 2.97 10^6/uL (4.30-6.10); WHITE BLOOD COUNT 5.2 10^3/uL (4.0-10.0)
[2020-05-31 06:29] LABS: BLOOD UREA NITROGEN 15 MG/DL (7-18); CALCIUM LEVEL 8.6 MG/DL (8.8-10.2); CARBON DIOXIDE LEVEL 30 MEQ/L (21-32); CHLORIDE LEVEL 105 MEQ/L (98-107); CREATININE FOR GFR 0.87 MG/DL (0.70-1.30); GLOMERULAR FILTRATION RATE > 60.0 (>35); GLUCOSE, FASTING 87 MG/DL (70-100); SODIUM LEVEL 141 MEQ/L (136-145)
[2020-05-31 06:48] LABS: BASOPHILS 3 % (0-1); EOSINOPHILS 5 % (0-3); LYMPHOCYTES 22 % (16-44); METAMYELOCYTES 5 % (0-0); MONOCYTES 29 % (0-5); MYELOCYTES 1 % (0-0); NEUTROPHILS 32 % (28-66)
[2020-05-31 06:52] LABS: PLATELET ESTIMATE NORMAL (NORMAL)
[2020-05-31 06:53] LABS: ANISOCYTOSIS 3+; HYPOCHROMASIA 1+
[2020-05-31 06:54] LABS: POLYCHROMASIA 1+
[2020-05-31] MEDS: SIMVASTATIN 40 MG TAB PO SCH (08:15)
[2020-05-31] MEDS: PANTOPRAZOLE 40MG VIAL (C9113 PER 1) IV SCH ×2 (08:15→20:23)
[2020-05-31] MEDS: DOCUSATE SODIUM 100 MG CAP PO SCH (08:16)
[2020-05-31] MEDS: SUCRALFATE SUSP 1GM/10ML UD PO SCH ×2 (08:16→11:49)
[2020-05-31] MEDS: SENOKOT S TAB PO SCH ×2 (08:16→20:23)
[2020-05-31] MEDS: SENNA 8.6 MG TAB (SENOKOT) PO SCH (08:16)
[2020-05-31] MEDS: SYMBICORT 160/4.5MCG INHALER 6GM INH SCH ×2 (09:12→20:05)
[2020-05-31] MEDS: TIMOLOL MALEATE 0.5% OPHTH SOLN 5 ML OU SCH (11:49)
[2020-05-31] MEDS ORDERED: FLEET ENEMA PR ONE (12:00)
--- NOTE | 2020-05-31 12:25 | IPNPDOC ---
Text Note Date of Service The patient was seen on 05/31/20. NOTE Subjective: No events overnight. Patient did not offer any complaints. No sob or chest pain. Patient will be going for EGD/Colonoscopy today after cardiological clearance by Dr Bryan. PHYSICAL EXAMINATION: VItals :As below. Constitutional: Awake and alert, in no apparent distress ENT: Sclera are clear. Mucosa is moist. Respiratory: Bibasilar basal fibrotic crackles. No respiratory distress. No use of accessory muscles. Breathing comfortably on room air saturating 98% Cardiovascular: Heart rate is regular, 2+ systolic murmur, no rub or gallop Gastrointestinal: Abdomen is soft, non distended, non tender, BS present. Musculoskeletal: No edema. RUE 5/5, LUE 5/5, BLE 5/5 Neurologic: No focal neurological deficit. Mental Status: A&O x3, normal affect Skin: Warm, dry Labs and radiology: reviewed Assessment and Plan: 80M PMHx COPD, HTN, paroxysmal A fib, glaucoma, Chronic anemia from 2018 presents to ED for dizziness and weakness and exertional SOB at home for several days. He was found to have a hb of 6.6 with no overt bleeding but had a positive stool guaic. Last colonoscopy was 20 years ago he is unsure of the results but thinks they were normal. HE was admitted for symptomatic anemia. Dyspnea/ Dizziness/ Chest pain Combination of Now severe Aortic stenosis and symptomatic anemia Probably was having demand angina. Echo: Probably severe aortic stenosis (mean gradient 36 mmHg, calculated aortic valve area (SHARON) 0.9 cm2), trace aortic insufficiency. Mild mitral stenosis (mean gradient 3 mmHg), mild mitral insufficiency. Mild pulmonary hypertension. s/p prbc transfusion and Lasix. Cardiology Dr Bryan. Symptomatic anemia: Macrocytic. s/p 3 units of PRBC checked vit B12, Iron studies, SPEP, folate, stool for occult blood positive x 3 Does not seem to be having any large onging GIB as H/H responded appropriately to PRBC transfusion and has been stable with stable vitals. However probably having a slow GIB. Had EGD and colonoscopy in [address] Prakash. Planned for EGD/Colonoscopy By Marilin 05/31/[address] Bryan. COPD/ Bibasilar pleural calcification/pulmonary hypertension continue home inhalers. HTN: Currently normotensive. Monitor and titrate medications as needed. Paroxysmal Afib: EKG in ED showing NSR. Regular HR on exam. On xarelto which is now stopped. H/o Choledocholithiasis s/p ERCP, sphincterotomy and biliary stent placement and removal in 2012 DVT prophylaxis: SCDs only due to GI bleed VS,Fishbone, I+O VS, Fishbone, I+O Laboratory Tests 05/31/20 05:28 Vital Signs Date Time Temp Pulse Resp B/P (MAP) Pulse Ox O2 Delivery O2 Flow Rate FiO2 05/31/20 06:00 97.1 90 16 137/61 (86) 98 Room Air I&O- Last 24 Hours up to 6 AM 05/31/20 07:00 Intake Total 900 ml Output Total 700 ml Balance 200 ml SHAWN HUTCHISON MD May 31, 2020 08:16
--- NOTE | 2020-05-31 12:50 | CR ---
DATE OF CONSULTATION: 05/31/2020 REFERRING PHYSICIAN: Dr. David INDICATION: GI bleeding, clearance for colonoscopy. HISTORY OF PRESENT ILLNESS: Mr. Menendez is an 80-year-old man that is known to my office. He has a history of atrial fibrillation and has been maintained chronically on Xarelto. He also has known aortic stenosis that is approaching severe degree. He presented to [facility] on May 28 after approximately three or four week history of worsening exertional dyspnea, exertional angina and episodes of dizziness. On presentation, he was found to be anemic with hemoglobin down to 6.6. The Xarelto was obviously stopped and he had received two units of packed red blood cells with improvement of hemoglobin to 9.4 this morning. He denies any melena or he denies any blood in his stools but apparently about six weeks ago, he was detected to be mildly anemic by his primary care physician, Dr. Connor and he was started on iron supplementation. At bedside, the patient feels well. He tells me that since he has been in the hospital, he has not had any recurrence of chest discomfort or discomfort or dizziness and he has been ambulating in the med/surg unit without significant difficulty. PAST MEDICAL HISTORY: 1. Paroxysmal atrial fibrillation. He had single documented episodes in 2012 and has been anticoagulated since. 2. Known aortic stenosis. He had an echocardiogram in our office in July, with mean transaortic gradient approximately 32 mmHg. There was also mild mitral stenosis and normal pulmonary artery pressure. The echocardiogram was repeated during this hospitalization and there has been mild deterioration of the stenosis. The mean gradient this time was recorded as 36 mmHg and calculated aortic valve area was 0.9 cm squared but left ventricular systolic function remains preserved. There is mild mitral stenosis and mild pulmonary hypertension. 3. Carotid artery stenosis that is mild based on last ultrasound that to my understanding is from 2012. 4. Hyperlipidemia. 5. There is no history of diabetes or hypertension. SURGICAL HISTORY: 1. Carpal tunnel release bilaterally. 2. Cataract extractions. 3. Cholecystectomy. 4. Hand surgery. 5. Left knee replacement. FAMILY HISTORY: His father of Parkinsons disease. Brother has hypertension and son has diabetes. SOCIAL HISTORY: The patient is . He used to smoke but quit many years ago, does not drink a significant amount of alcohol. OUTPATIENT MEDICATIONS: * Xarelto 20 mg daily. * Simvastatin 40 mg daily. * Timolol eye drops. * Occasional meclizine for vertigo. REVIEW OF SYSTEMS: He has had chest pain, dizziness and shortness of breath for the last few weeks as per HPI. There were no syncopal events. There was no fever, chills, nausea, vomiting, or diarrhea. No peripheral edema. No obvious bleeding. The rest negative or as per HPI. PHYSICAL EXAMINATION: Mr. Menendez is an elderly man, alert, oriented, very pleasant. He appears approximately his age, also appears rather pale. Vital signs: Blood pressure 137/61. Heart rate has been in the 70s to low 90s, sinus rhythm with occasional PVCs. He is afebrile. Saturation is 98% on room air. JVP is not high. There are bilateral carotid bruits probably representing radiating murmur from the aortic stenosis. Lungs are clear. Heart exam reveals regular rhythm with rare ectopy. There is approximately II or III/ intensity systolic ejection murmur best heard over the aortic valve with a diminished second heart sound. I do not appreciate any gallop. I do not appreciate any mitral murmur. Abdomen is soft without tenderness, no obvious hepatosplenomegaly or masses. Extremities are free of edema. Neurologically, he is intact. LABORATORY DATA: This morning, hemoglobin 9.4, hematocrit 29.8, platelet count 143,000 and WBC count 5.2. Basic metabolic panel is normal. His iron studies that were performed on May 29 revealed iron 220, TIBC 238 and ferritin 391 which certainly argues against iron deficiency but because the labs were drawn shortly after her received blood transfusion, I am not convinced that this is actually accurate assessment of his iron status. Cardiac enzymes were negative. [id number] was 2900 on presentation. He had serum electrophoresis that did not identify any monoclonal spikes. He tested negative for SARS. An echocardiogram: As per HPI. Electrocardiogram revealed sinus rhythm with occasional PVC and otherwise unremarkable. ASSESSMENT AND PLAN: Mr. Menendez is an elderly, 80-year-old man who has known and gradually progressive aortic stenosis that at this point likely reached severe degree even though the mean gradient is only 36 mmHg. He presented with several weeks history of exertional chest pain, shortness of breath and dizziness. Very likely this was a combination of aortic stenosis but principally due to worsening anemia. At this point, I believe it is appropriate to proceed with GI evaluation. We need to make sure that he is not actively bleeding because it is probable that he will need further cardiac instrumentation and we have to have some information regarding safety of anticoagulation in the near future. Even though there is some risk to the procedures, it is relatively low because both colonoscopy and EGD are low risk procedures and consequently the patient should be able to tolerate them. I spoke with the patient about the plan and he is in agreement. The preparation already started yesterday evening. Depending on the results, we will decide on further management. I do foresee that he will need cardiac catheterization in the near future but whether it will be performed as a transfer from our facility or whether he will complete the process on an outpatient basis will to a degree depend on results of GI evaluation and also on his clinical course. ZARA
[2020-05-31 13:07] LABS: FOLATE 23.7 NG/ML (>5.4); VITAMIN B12 LEVEL 1516 PG/ML (247-911)
[2020-05-31] MEDS ORDERED: LIDOCAINE 2% 100MG/5ML SDV (FOR ANES.) As Ordered ONE (13:38)
[2020-05-31] MEDS ORDERED: propofoL 200 MG/20 ML VIAL As Ordered ONE (13:38)
--- NOTE | 2020-05-31 14:31 | CR ---
DATE OF CONSULTATION: 05/30/2020 BRIEF HISTORY OF PRESENT ILLNESS: Patient is an 80-year-old male who presents with significant shortness of breath and anemia. Denies any significant melanotic stools or bright red blood per rectum. He has had a remote history of a colonoscopy but has not had anything for a very long period of time. The patient presented with anemia/hemoglobin of 6.6 and since getting transfusions has been doing much better. Unfortunately, he is on anticoagulation for his atrial fibrillation, and he is on Xarelto at this time. From his hospital course, once he started getting the blood transfusion he made some significant progress; however, he still had some shortness of breath and underwent an echo evaluation for a history of aortic stenosis, and it came back as severe aortic stenosis. Dr. Bryan is planning on seeing him in the morning, and his first impression is that he should be able to proceed with an upper and lower endoscopy for further evaluation. Especially he will need to have this settled prior to any possible cardiac interventions that may be necessary in the future. In any case, I am asked to see him for possible endoscopies. MEDICAL HISTORY: 1. History of glaucoma. 2. History of hypertension. 3. History of paroxysmal atrial fibrillation. 4. History of chronic obstructive pulmonary disease (COPD). 5. History of left knee replacement. 6. History of bilateral hand surgery. 7. 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 MEDICATIONS: Include vitamin C, vitamin D, cyclosporin/Restasis, history of doxycycline, history of glycosamine, meclizine, [place]-3, Xarelto, simvastatin, timolol. PHYSICAL EXAMINATION: Reveals an 80-year-old male who looks stated age. HEENT: Unremarkable. NECK: Supple without adenopathy. LUNGS: Clear anteriorly. HEART: Regular with significant murmur. ABDOMEN: Soft, nontender, nondistended. IMPRESSION AND PLAN: Patient has anemia of undetermined etiology. It has actually been several days since he had his last dose of Xarelto, and thus it is very reasonable to proceed with his endoscopy. We will preemptively start him on some stool softeners tonight and give him some milk of magnesia. Give him some GoYLTELY tomorrow morning and will add him to the end of the schedule tomorrow. Otherwise, we will discuss this further with him, but otherwise at this time he agrees to proceed with an upper and lower endoscopy just as long as his log roper feels that it is appropriate/safe to proceed with this. ZARA
[2020-05-31] MEDS ORDERED: fentaNYL 100 MCG/2 ML INJECTION (J3010) As Ordered ONE (14:44)
--- NOTE | 2020-05-31 15:03 | ROOR ---
Patient Name: Randall Menendez Procedure Date: 05/31/2020 2:54 PM Date of : 1940 Age: 80 Room: [facility] Gender: Male Note Status: Finalized Procedure: Upper GI endoscopy Indications: Iron deficiency anemia Providers: Moshe Gaston Jr, MD Referring MD: 2. Inpatient 2. Inpatient Requesting Provider: Medicines: Propofol per Anesthesia Complications: No immediate complications. Procedure: Pre-Anesthesia Assessment: - Prior to the procedure, a History and Physical was performed, and patient medications and allergies were reviewed. The patient is competent. The risks and benefits of the procedure and the sedation options and risks were discussed with the patient. All questions were answered and informed consent was obtained. Patient identification and proposed procedure were verified by the physician and the nurse in the pre-procedure area and in the procedure room. Mental Status Examination: alert and oriented. Airway Examination: normal oropharyngeal airway and neck mobility. Respiratory Examination: clear to auscultation. CV Examination: normal. ASA Grade Assessment: III - A patient with severe systemic disease. After reviewing the risks and benefits, the patient was deemed in satisfactory condition to undergo the procedure. The anesthesia plan was to use moderate sedation / analgesia (conscious sedation). Immediately prior to administration of medications, the patient was re-assessed for adequacy to receive sedatives. The heart rate, respiratory rate, oxygen saturations, blood pressure, adequacy of pulmonary ventilation, and response to care were monitored throughout the procedure. The physical status of the patient was re-assessed after the procedure. The Endoscope was introduced through the mouth, and advanced to the second part of duodenum. The upper GI endoscopy was accomplished without difficulty. The patient tolerated the procedure well. Findings: The upper third of the esophagus, middle third of the esophagus, lower third of the esophagus and gastroesophageal junction were normal. The cardia, gastric fundus, gastric body, gastric antrum and prepyloric region of the stomach were normal. The duodenal bulb, first portion of the duodenum and second portion of the duodenum were normal. Impression: - Normal upper third of esophagus, middle third of esophagus, lower third of esophagus and gastroesophageal junction. - Normal cardia, gastric fundus, gastric body, antrum and prepyloric region of the stomach. - Normal duodenal bulb, first portion of the duodenum and second portion of the duodenum. - No specimens collected. Recommendation: - Return patient to hospital [facility] for ongoing care. Moshe Gaston MD Moshe Gaston Jr, MD 05/31/2020 3:02:55 PM Electronically signed by Moshe Gaston Jr, MD Number of Addenda: 0 Note Initiated On: 05/31/2020 2:54 PM Estimated Blood Loss: Estimated blood loss: none.
[2020-05-31] MEDS ORDERED: PHENYLephrine HCL 500 MCG/5 ML (100MCG/ML) SYRINGE (J2370) As Ordered ONE (15:11)
--- NOTE | 2020-05-31 15:17 | ROOR ---
Patient Name: Randall Menendez Procedure Date: 05/31/2020 2:54 PM Date of : 1940 Age: 80 Gender: Male Note Status: Finalized Procedure: Colonoscopy Indications: Iron deficiency anemia Providers: Moshe Gaston Jr, MD Referring MD: 2. Inpatient 2. Inpatient Requesting Provider: Medicines: Propofol per Anesthesia Complications: No immediate complications. Procedure: Pre-Anesthesia Assessment: - Prior to the procedure, a History and Physical was performed, and patient medications and allergies were reviewed. The patient is competent. The risks and benefits of the procedure and the sedation options and risks were discussed with the patient. All questions were answered and informed consent was obtained. Patient identification and proposed procedure were verified by the physician and the nurse in the pre-procedure area and in the procedure room. Mental Status Examination: alert and oriented. Airway Examination: normal oropharyngeal airway and neck mobility. Respiratory Examination: clear to auscultation. CV Examination: normal. ASA Grade Assessment: II - A patient with mild systemic disease. After reviewing the risks and benefits, the patient was deemed in satisfactory condition to undergo the procedure. The anesthesia plan was to use moderate sedation / analgesia (conscious sedation). Immediately prior to administration of medications, the patient was re-assessed for adequacy to receive sedatives. The heart rate, respiratory rate, oxygen saturations, blood pressure, adequacy of pulmonary ventilation, and response to care were monitored throughout the procedure. The physical status of the patient was re-assessed after the procedure. The Colonoscope was introduced through the anus and advanced to the cecum, identified by appendiceal orifice and ileocecal valve. The colonoscopy was performed without difficulty. The patient tolerated the procedure well. The quality of the bowel preparation was fair. Findings: The rectum, sigmoid colon, descending colon, transverse colon, ascending colon, cecum, appendiceal orifice and ileocecal valve appeared normal. Impression: - Preparation of the colon was fair. - The rectum, sigmoid colon, descending colon, transverse colon, ascending colon, cecum, appendiceal orifice and ileocecal valve are normal. - No specimens collected. Recommendation: - Return patient to [facility] for ongoing care. Moshe Gaston MD Moshe Gaston Jr, MD 05/31/2020 3:16:38 PM Electronically signed by Moshe Gaston Jr, MD Number of Addenda: 0 Note Initiated On: 05/31/2020 2:54 PM Estimated Blood Loss: Estimated blood loss: none.
[2020-06-01 02:00] VITALS: BP 129/59
[2020-06-01 06:00] VITALS: BP 121/70
[2020-06-01 06:05] LABS: BASO # 0.1 10^3/uL (0.0-0.2); BASO % 1.3 % (0.0-1.0); EOS # 0.1 10^3/uL (0.0-0.5); EOS % 1.5 % (0.0-3.0); HEMATOCRIT 33.3 % (42.0-52.0); HEMOGLOBIN 10.4 g/dl (13.5-17.5); LYMPH # 0.7 10^3/uL (1.5-5.0); LYMPH % 14.7 % (24.0-44.0); MEAN CORPUSCULAR HEMOGLOBIN 32.1 pg (27.0-33.0); MEAN CORPUSCULAR HGB CONC 31.2 g/dl (32.0-36.5); MEAN CORPUSCULAR VOLUME 102.8 fl (80.0-96.0); MONO # 1.6 10^3/uL (0.0-0.8); MONO % 34.2 % (0.0-5.0); NEUTROPHILS # 2.2 10^3/uL (1.5-8.5); PLATELET COUNT, AUTOMATED 153 10^3/uL (150-450); RED BLOOD COUNT 3.24 10^6/uL (4.30-6.10); WHITE BLOOD COUNT 4.8 10^3/uL (4.0-10.0)
[2020-06-01 06:47] LABS: BLOOD UREA NITROGEN 12 MG/DL (7-18); CALCIUM LEVEL 8.4 MG/DL (8.8-10.2); CARBON DIOXIDE LEVEL 30 MEQ/L (21-32); CHLORIDE LEVEL 106 MEQ/L (98-107); CREATININE FOR GFR 0.92 MG/DL (0.70-1.30); GLOMERULAR FILTRATION RATE > 60.0 (>35); GLUCOSE, FASTING 102 MG/DL (70-100); POTASSIUM SERUM 3.3 MEQ/L (3.5-5.1); SODIUM LEVEL 142 MEQ/L (136-145)
[2020-06-01] MEDS: SYMBICORT 160/4.5MCG INHALER 6GM INH SCH (07:34)
[2020-06-01] MEDS: SIMVASTATIN 40 MG TAB PO SCH (08:09)
[2020-06-01] MEDS: PANTOPRAZOLE 40MG VIAL (C9113 PER 1) IV SCH (08:09)
[2020-06-01] MEDS: TIMOLOL MALEATE 0.5% OPHTH SOLN 5 ML OU SCH (08:09)
[2020-06-01] MEDS: SENOKOT S TAB PO SCH (08:09)
[2020-06-01] MEDS ORDERED: POTASSIUM CHLORIDE 10 MEQ SR TABLET PO SCH (09:00)
--- NOTE | 2020-06-01 14:14 | DS ---
DATE OF ADMISSION: 05/28/2020 DATE OF DISCHARGE: 06/01/2020 PRINCIPAL DIAGNOSIS: Symptomatic anemia with heme-positive stool (angiodysplasia suspected, no bleeding source found on endoscopy). SECONDARY DIAGNOSES: 1. Moderate to severe aortic stenosis. 2. Shortness of breath on exertion probably from aortic stenosis. 3. COPD. 4. Hypertensive heart disease. 5. Paroxysmal atrial fibrillation. HISTORY OF PRESENT ILLNESS: Randall Hickman was admitted with symptomatic anemia; details are in the history and physical from admission. HOSPITAL COURSE: Patient was admitted to a medical bed. He had a hemoglobin of 6.6 on admission. Stool was heme-positive times three. He underwent upper and lower endoscopy. No bleeding source was found. He does have significant aortic stenosis moderate to severe, most likely severe with a mean aortic gradient of 36 mm, aortic valve area 0.9 square cm, mild mitral stenosis noted. This will need outpatient follow-up. He is seen by Dr. Bryan, who saw him in consultation and thought he was medically stable for the endoscopy and should be seeing him in outpatient follow-up. The patient remained stable after 3 units of packed red blood cell transfusion. Endoscopy is summarized below. On the day of discharge, he is resting comfortably, eager to go home. He says he has been 58 years and he misses his . PHYSICAL EXAMINATION ON DISCHARGE: VITALS: Blood pressure is 120/70, pulse 71, respiratory rate 20, 95% saturation. GENERAL: He is well conversant, in no distress. LUNGS: A few fibrotic rales. HEART: Regular rhythm, 2-3/6 systolic ejection murmur, 1/4 diastolic rumble. ABDOMEN: Soft, nontender, no masses. EXTREMITIES: No clubbing, cyanosis or edema. LABORATORY DATA: Today white count 4.8, hemoglobin 10.4, platelets 153,000. Sodium 142, potassium 3.3, BUN 12, creatinine 0.9, glucose 102. Serum protein electrophoresis showed no M spike. B12 level was normal at 1500, folate normal. Iron studies showed anemia of chronic disease with high ferritin, low TIBC. DISPOSITION: Patient is discharged home in stable condition to follow-up with Dr. Warner, his primary care provider in a week. He should follow-up with Dr. Bryan at [facility] per his office. Activities as tolerated. No added salt diet. He had an upper and lower endoscopy, no bleeding source was seen. I suspect he has angiodysplasia, which is common in patient with moderate to severe aortic stenosis and is often not seen on endoscopy. Because of undiagnosed GI bleeding, his anticoagulant is currently being held, but he will need to have this resumed as outpatient follow-up. MEDICATIONS ON DISCHARGE: Will continue to be: 1. Vitamin C. 2. Calcium with Vitamin D. 3. Daily Vitamin D 1,000 units. 4. Doxycycline 50 mg daily. 5. Glucosamine daily. 6. Meclizine 12.5 mg t.i.d. 7. [place]-3 fatty acids. 8. Simvastatin 40 mg daily. 9. His Xarelto 20 mg daily will be held. FOLLOW-UP: Continue to follow-up CBC as an outpatient. He will follow-up for his aortic stenosis with Dr. Bryan. ZARA
== END 2020-06-01 13:50 | disposition home or self-care (01) | DRG 811 ==
LOC: M ED 19:29 → M ED INP 22:53 → ENRESERV 05-29 00:11 → M ICU 05-29 01:07 → M MSPAV 05-29 16:43
PROVIDERS: ADMIT Family Medicine; ATTEND Family Medicine
PROC: 30233N0 Transfusion of Autologous Red Blood Cells into Peripheral Vein, Percutaneous Approach (ICD-10-PCS; principal; 2020-05-28)
PROC: 0DJ08ZZ Inspection of Upper Intestinal Tract, Via Natural or Artificial Opening Endoscopic (ICD-10-PCS; 2020-05-31)
PROC: 0DJD8ZZ Inspection of Lower Intestinal Tract, Via Natural or Artificial Opening Endoscopic (ICD-10-PCS; 2020-05-31)
DX: D50.9 Iron deficiency anemia, unspecified (principal); K55.21 Angiodysplasia of colon with hemorrhage; I35.0 Nonrheumatic aortic (valve) stenosis; J44.9 Chronic obstructive pulmonary disease, unspecified; I11.9 Hypertensive heart disease without heart failure; I48.0 Paroxysmal atrial fibrillation; I20.9 Angina pectoris, unspecified; Z79.899 Other long term (current) drug therapy; Z96.652 Presence of left artificial knee joint; H40.9 Unspecified glaucoma

== ENCOUNTER → 2020-06-13 | Outpatient (CLI) | payer MEDICARE ==
[~2020-06-13] MED LIST changes: +D31000TA2 PO; +DOXY50TA3 PO; +GLUCTAB6 PO; +MECL12.589 PO; +OMEG10005 PO; +OYST500T91 PO; +PATIENT COMMENT; +REST0.05 OU; +SIMV40TA20 PO; +TIMO0.5S29 OU; +VITMTA PO
[2020-06-13 17:20] LABS: HEMATOCRIT 35.9 % (42.0-52.0); MEAN CORPUSCULAR HEMOGLOBIN 32.4 pg (27.0-33.0); MEAN CORPUSCULAR HGB CONC 30.6 g/dl (32.0-36.5); MEAN CORPUSCULAR VOLUME 105.6 fl (80.0-96.0); PLATELET COUNT, AUTOMATED 194 10^3/uL (150-450); WHITE BLOOD COUNT 5.1 10^3/uL (4.0-10.0)
[2020-06-13 18:08] LABS: ERYTHROCYTE SEDIMENTATION RATE 29 mm/hr (0-20)
== END ==
LOC: M PLALAB 14:53
PROVIDERS: ATTEND Physician Assistant
DX: I48.0 Paroxysmal atrial fibrillation (principal); D64.9 Anemia, unspecified

== ENCOUNTER 2020-08-09 10:41 | Observation (INO) | payer MEDICARE ==
[~2020-08-09] VITALS: Ht 177.8 cm; Wt 72.9 kg
[2020-08-09] VITALS (8 sets, daily range): BP systolic 109–114; BP diastolic 52–60
[~2020-08-09 10:41] MED LIST changes: -MECL12.589 PO; +MECL12.590 PO
--- OUTSIDE RECORDS SUMMARY | 2020-08-09 10:54 | CCD | Continuity of Care Document ---
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 AUTM [phone] Shanae Lewis MA cc-A AUTM [phone] AUTM Unavailable Problems Active Problems Provider Date Subjective tinnitus Jaqui L Page DO Onset: 07/25/2013 Otolith disease Jaqui L Page DO Onset: 07/25/2013 Chronic rhinitis Jaqui L Page DO Onset: 07/25/2013 Bilateral sensory hearing loss Jaqui L Page DO Onset: Chronic mastoiditis Jaqui L Page DO Onset: 07/25/2013 Hearing loss Jaqui L Page DO Onset: 07/25/2013 Deviated nasal septum Jaqui L Page DO Onset: 07/25/2013 Temporomandibular joint disorder Jaqui L Page DO Onset: 07/25/2013 Referred otalgia Jaqui L Page DO Onset: 07/25/2013 Epistaxis Sandoval Nixon MD Onset: 10/24/2013 Fracture Facial Bones Closed Other Sandoval Nixon MD Onset : 10/24/2013 Noncompliance with treatment Olaf Cordova MD Onset: 02/17 Dyspnea Misty Steiner, A.N.P. Onset: 07/29/2012 Ex-smoker Misty Steiner, A.N.P. Onset: 07/30/2011 Overweight Misty Steiner, A.N.P. Onset: 07/30/2011 Body mass index 25-29 - overweight Misty Steiner, A.N.P. Onset : 07/30/2011 Obstructive sleep apnea syndrome Olaf Cordova MD Onset: 07/17/2010 Social History Type Date Description Comments Sex Unknown Tobacco Use Start: Unknown End: Unknown Quit ETOH Use Rarely consumes alcohol Recreational Drug Use Denies Drug Use Tobacco Use Start: Unknown Non Smoker Smoking Status Reviewed: 05/14/20 Non Smoker Allergies, Adverse Reactions, Alerts Description No Known Drug Allergies Medications Active Medications SIG Qnty Indications Ordering Provide r Date Multivitamins Tablets 1 po q d Unknown Xarelto 20mg Tablets 1 by mouth every day Unknown Restasis 0.05% Emulsion Unknown Niacin 500mg Capsules 2 tablets once a day Unknown Timolol Maleate 0.5% Solution Unknown Glucosamine 1500 Complex 1500Com C apsules once a day Unknown Vitamin C 500mg Tablets 1 po qd Unknown Zocor 40mg Tablets 1 po qd Unknown Fish Oil 1000mg Capsules 1 po qd Unknown Immunizations CPT Code Status Date Vaccine Lot # [id number] Given 04/30/2015 Influenza Virus Split 3 Yrs And Above For Intramuscular Use Q2036 Given 04/27/2013 Influenza Vaccine 3 Years Of Age Or Older (Flulaval) Q2036 Given 05/29/2012 Influenza Vaccine 3 Years Of Age Or Older (Flulaval) Q2036 Given 07/02/2011 Influenza Vaccine 3 Years Of Age Or Older (Flulaval) Vital Signs Date Vital Result Comment 05/14/2020 2:01pm BP Systolic 118 mmHg BP Diastolic 64 mmHg Heart Rate 73 /min O2 % BldC Oximetry 97 % Room Air Height 70 inches 5'10" Weight 160.00 lb BMI (Body Mass Index) 23.0 kg/m2 [place] Body Weight 166 lb Weight 72.576 kg 09/18/2016 3:17pm Weight 165.00 lb Weight 74.844 kg Results Description No Information Available Procedures Description No Information Available Medical Devices Description No Information Available Encounters Description No Information Available Assessments Date Code Description Provider 05/14/2020 R06.02 Shortness of breath Olaf amos MD 05/14/2020 R91.8 Other nonspecific abnormal findi ng of lung field Olaf Cordova MD 05/14/2020 Z79.02 MCC (current) use of antit hrombotics/antiplatelets Olaf Cordova MD Plan of Treatment Future Appointment(s):* 05/23/2020 1:00 pm - Pulmonary Lab at [facility] Pulmonary/Thoracic 05/14/2020 - Olaf Cordova MD* R06.02 Shortness of breath * R91.8 Other nonspecific abnormal finding of lung field * 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
--- OUTSIDE RECORDS SUMMARY | 2020-08-09 10:54 | CCD | Continuity of Care Document ---
Author Author Randall XIONG DPM Organization Unknown Address [address] [place] [address], [address] [place] [address] Phone [phone] Problems Active Problems Provider Date Tailor's bunion Wayne Xiong DPM Onset: 01/21/2018 Raynaud's disease Wayne Xiong DPM Onset: 01/21/2018 Peripheral vascular disease Wayne Xiong DPM Onset: 11/2017 Onychomycosis Wayne Xiong DPM Onset: 01/21/2018 Corns and callosities Wayne Xiong DPM Onset: 01/21/2018 Social History Type Date Description Comments Sex Unknown ETOH Use Rarely consumes beer Tobacco Use Start: Unknown End: Unknown Patient is a former smoker quit 1970 Allergies, Adverse Reactions, Alerts Description No Known Drug Allergies Medications Active Medications SIG Qnty Indications Ordering Provide r Date Nitro-bid 2% Ointment apply to base of toes twice daily 30gm Wayne Xiong DPM 08/20/2018 Timolol Maleate 0.5% Solution Unknown Digoxin 125mcg Tablets [facility] Doxycycline Hyclate 50mg Capsules Unknown Xarelto Unknown Zocor Unknown Glucosamine Chondroitin 500 Complex Unknown Nifedipine ER Unknown Digoxin Unknown Niacin Unknown Restasis Unknown Doxycycline Unknown Immunizations Description No Information Available Vital Signs Date Vital Result Comment 03/10/2019 10:52am Height 60 inches 5'0" Weight 150.00 lb BP Systolic 112 mmHg BP Diastolic 62 mmHg Heart Rate 60 /min BMI (Body Mass Index) 29.3 kg/m2 12/29/2017 8:50am Height 70 inches 5'10" Weight 160.00 lb BP Systolic 132 mmHg BP Diastolic 60 mmHg Heart Rate 62 /min BMI (Body Mass Index) 23.0 kg/m2 Results Description No Information Available Procedures Date Code Description Status 01/19/2020 55667 Debridement 6-10 Nails Electric Completed 01/19/2020 81539 Paring/Cut Benign Lesion 2 To 4 Completed Medical Devices Description No Information Available Encounters Description No Information Available Assessments Date Code Description Provider 01/19/2020 B35.1 Tinea unguium Wayne Xiong DPM 01/19/2020 I73.89 Other specified peripheral vascu lar diseases Wayne Xiong DPM 01/19/2020 L84 Corns and callosities Wayne Xiong DPM Plan of Treatment Future Appointment(s):* 09/20/2020 11:00 am - Wayne Xiong DPM at [facility] Functional Status Description No Information Available Mental Status Description No Information Available Referrals Description No Information Available
--- OUTSIDE RECORDS SUMMARY | 2020-08-09 10:54 | CCD ---
Author Author [facility] Organization [facility] Address Unknown Phone Unavailable Care Team Providers Care Physician Aide Name Role Phone Perez, L Leonila PA Unavailable Unavailable Perez, L Leonila PA Unavailable Unavailable Perez, L Leonila PA Unavailable Unavailable Perez, L Leonila PA Unavailable Unavailable Perez, L Leonila PA Unavailable Unavailable Perez, L Leonila PA Unavailable Unavailable Perez, L Leonila PA Unavailable Unavailable Perez, L Leonila PA Unavailable Unavailable Perez, L Leonila PA Unavailable Unavailable Perez, L Leonila PA Unavailable Unavailable Perez, L Leonila PA Unavailable Unavailable Perez, L Leonila PA Unavailable Unavailable Perez, L Leonila PA Unavailable Unavailable Perez, L Leonila PA Unavailable Unavailable Perez, L Leonila PA Unavailable Unavailable Perez, L Leonila PA Unavailable Unavailable Perez, L Leonila PA Unavailable Unavailable Perez, L Leonila PA Unavailable Unavailable Perez, L Leonila PA Unavailable Unavailable Perez, L Leonila PA Unavailable Unavailable Perez, L Leonila PA Unavailable Unavailable Perez, L Leonila PA Unavailable Unavailable Perez, L Leonila PA Unavailable Unavailable Perez, L Leonila PA Unavailable Unavailable Perez, L Leonila PA Unavailable Unavailable Perez, L Leonila PA Unavailable Unavailable Perez, L Leonila PA Unavailable Unavailable Perez, L Leonila PA Unavailable Unavailable Perez, L Leonila PA Unavailable Unavailable Perez, L Leonila PA Unavailable Unavailable Perez, L Leonila PA Unavailable Unavailable Perez, L Leonila PA Unavailable Unavailable Perez, L Leonila PA Unavailable Unavailable Perez, L Leonila PA Unavailable Unavailable Perez, L Leonila PA Unavailable Unavailable Perez, L Leonila PA Unavailable Unavailable Fish, B Aristeo MCKENZIE Unavailable Unavailable Fish, B Aristeo MCKENZIE Unavailable Unavailable Fish, B Aristeo MCKENZIE Unavailable Unavailable Fish, B Aristeo MCKENZIE Unavailable Unavailable Fish, B Aristeo MCKENZIE Unavailable Unavailable Fish, B Aristeo MCKENZIE Unavailable Unavailable Fish, B Aristeo MCKENZIE Unavailable Unavailable Fish, B Aristeo MCKENZIE Unavailable Unavailable Fish, B Aristeo MCKENZIE Unavailable Unavailable Fish, B Aristeo MCKENZIE Unavailable Unavailable Fish, B Aristeo MCKENZIE Unavailable Unavailable Fish, B Aristeo MCKENZIE Unavailable Unavailable Fish, B Aristeo MCKENZIE Unavailable Unavailable Fish, B Aristeo MCKENZIE Unavailable Unavailable Fish, B Aristeo MCKENZIE Unavailable Unavailable Fish, B Aristeo MCKENZIE Unavailable Unavailable Fish, B Aristeo MCKENZIE Unavailable Unavailable Fish, B Aristeo MCKENZIE Unavailable Unavailable Fish, B Aristeo MCKENZIE Unavailable Unavailable Fish, B Aristeo MCKENZIE Unavailable Unavailable Fish, B Aristeo MCKENZIE Unavailable Unavailable Fish, B Aristeo MCKENZIE Unavailable Unavailable Fish, B Aristeo MCKENZIE Unavailable Unavailable Fish, B Aristeo MCKENZIE Unavailable Unavailable Fish, B Aristeo MCKENZIE Unavailable Unavailable Fish, B Aristeo MCKENZIE Unavailable Unavailable Fish, B Aristeo MCKENZIE Unavailable Unavailable Fish, B Aristeo MCKENZIE Unavailable Unavailable Fish, B Aristeo MCKENZIE Unavailable Unavailable Fish, B Aristeo MCKENZIE Unavailable Unavailable Fish, B Aristeo MCKENZIE Unavailable Unavailable Fish, B Aristeo MCKENZIE Unavailable Unavailable Fish, B Aristeo MCKENZIE Unavailable Unavailable Fish, B Aristeo MCKENZIE Unavailable Unavailable Fish, B Aristeo MCKENZIE Unavailable Unavailable Fish, B Aristeo MCKENZIE Unavailable Unavailable Fish, B Aristeo MCKENZIE Unavailable Unavailable Fish, B Aristeo MCKENZIE Unavailable Unavailable Fish, B Aristeo MCKENZIE Unavailable Unavailable Fish, B Aristeo MCKENZIE Unavailable Unavailable Fish, B Aristeo MCKENZIE Unavailable Unavailable Fish, B Aristeo MCKENZIE Unavailable Unavailable Fish, B Aristeo MCKENZIE Unavailable Unavailable Fish, B Aristeo MCKENZIE Unavailable Unavailable Fish, B Aristeo MCKENZIE Unavailable Unavailable Fish, B Aristeo MCKENZIE Unavailable Unavailable Fish, B Aristeo MCKENZIE Unavailable Unavailable Fish, B Aristeo MCKENZIE Unavailable Unavailable Fish, B Aristeo MCKENZIE Unavailable Unavailable Fish, B Aristeo MCKENZIE Unavailable Unavailable Fish, B Aristeo MCKENZIE Unavailable Unavailable Fish, B Aristeo MCKENZIE Unavailable Unavailable Fish, B Aristeo MCKENZIE Unavailable Unavailable DORA GIBBS PA Unavailable Unavailable DORA GIBBS PA Unavailable Unavailable SAIDORA RILEY PA Unavailable Unavailable SAI, DORA PA Unavailable Unavailable SAI, DORA PA Unavailable Unavailable SAI, DORA PA Unavailable Unavailable SAI, DORA PA Unavailable Unavailable SAI, DORA PA Unavailable Unavailable SAI, DORA PA Unavailable Unavailable SAI, DORA PA Unavailable Unavailable SAI, DORA PA Unavailable Unavailable SAI, DORA PA Unavailable Unavailable SAI, DORA PA Unavailable Unavailable SAI, DORA PA Unavailable Unavailable SAI, DORA PA Unavailable Unavailable SAI, DORA PA Unavailable Unavailable SAI, DORA PA Unavailable Unavailable SAI, DORA PA Unavailable Unavailable SAI, DORA PA Unavailable Unavailable SAI, DORA PA Unavailable Unavailable SAI, DORA PA Unavailable Unavailable SAI, DORA PA Unavailable Unavailable SAI, DORA PA Unavailable Unavailable SAI, DORA PA Unavailable Unavailable SAI, DORA PA Unavailable Unavailable SAI, DORA PA Unavailable Unavailable SAI, DORA PA Unavailable Unavailable SAI, DORA PA Unavailable Unavailable SAI, DORA PA Unavailable Unavailable SAI, DORA PA Unavailable Unavailable SAI, DORA PA Unavailable Unavailable SAI, DORA PA Unavailable Unavailable SAI, DORA PA Unavailable Unavailable SAI, DORA PA Unavailable Unavailable SAI, DORA PA Unavailable Unavailable SAI, DORA PA Unavailable Unavailable SAI, DORA PA Unavailable Unavailable SAI, DORA PA Unavailable Unavailable Mae, N Alfred MED ADMIN Unavailable Unavailable Mae, N Alfred MED ADMIN Unavailable Unavailable Mae, N Alfred MED ADMIN Unavailable Unavailable Blunt, N Alfred MED ADMIN Unavailable Unavailable Blunt, N Alfred MED ADMIN Unavailable Unavailable Mae, N Alfred MED ADMIN Unavailable Unavailable Mae, N Alfred MED ADMIN Unavailable Unavailable Mae, N Alfred MED ADMIN Unavailable Unavailable Blunt, N Alfred MED ADMIN Unavailable Unavailable Mae, N Alfred MED ADMIN Unavailable Unavailable Mae, N Alfred MED ADMIN Unavailable Unavailable Blunt, N Alfred MED ADMIN Unavailable Unavailable Blunt, N Alfred MED ADMIN Unavailable Unavailable Mae, N Alfred MED ADMIN Unavailable Unavailable Mae, N Alfred MED ADMIN Unavailable Unavailable Mae, N Alfred MED ADMIN Unavailable Unavailable Mae, N Alfred MED ADMIN Unavailable Unavailable Blunt, N Alfred MED ADMIN Unavailable Unavailable Blunt, N Alfred MED ADMIN Unavailable Unavailable Blunt, N Alfred MED ADMIN Unavailable Unavailable Blunt, N Alfred MED ADMIN Unavailable Unavailable Blunt, N Alfred MED ADMIN Unavailable Unavailable Blunt, N Alfred MED ADMIN Unavailable Unavailable Blunt, N Alfred MED ADMIN Unavailable Unavailable Mae, N Alfred MED ADMIN Unavailable Unavailable Blunt, N Alfred MED ADMIN Unavailable Unavailable Mae, N Alfred MED ADMIN Unavailable Unavailable Mae, N Alfred MED ADMIN Unavailable Unavailable Blunt, N Alfred MED ADMIN Unavailable Unavailable Mae, N Alfred MED ADMIN Unavailable Unavailable Re-disclosure Warning The records that you are about to access may contain information from federally-assisted alcohol or drug abuse programs. If such information is present, then the following federally mandated warning applies: This information has been disclosed to you from records protected by federal confidentiality rules (42 CFR part 2). The federal rules prohibit you from making any further disclosure of this information unless further disclosure is expressly permitted by the written consent of the person to whom it pertains or as otherwise permitted by 42 CFR part 2. A general authorization for the release of medical or other information is NOT sufficient for this purpose. The Federal rules restrict any use of the information to criminally investigate or prosecute any alcohol or drug abuse patient.The records that you are about to access may contain highly sensitive health information, the redisclosure of which is protected by Article 27-F of the [facility] Public Health law. If you continue you may have access to information: Regarding HIV / AIDS; Provided by facilities licensed or operated by the [facility] Office of Mental Health; or Provided by the [facility] Office for People With Developmental Disabilities. If such information is present, then the following [facility] mandated warning applies: This information has been disclosed to you from confidential records which are protected by state law. State law prohibits you from making any further disclosure of this information without the specific written consent of the person to whom it pertains, or as otherwise permitted by law. Any unauthorized further disclosure in violation of state law may result in a fine or group home sentence or both. A general authorization for the release of medical or other information is NOT sufficient authorization for further disc losure. Family History Family Member Name Family Member Gender Family Member Status Date o f Status Description Data Source(s) Unknown Female Problem [facility] ([facility] () Unknown Unknown Problem [facility] ([facility]) Unknown Male Problem [facility] ([facility]) Unknown Male Problem [facility] ([facility]) Unknown Male Problem [facility] ([facility]) Encounters Encounter Providers Location Date Indications Data Source(s ) O 08/09/2020 09:28:44 AM EST [facility] ([facility]) Outpatient Attender: Leonila BAIGWINNIE-SJP.WINNIE 12:00:00 AM EST - 06/13/2020 02:44:23 PM EST [facility] Outpatient Attender: Alfred BAIGWINNIE-SJP.WINNIE 020 12:00:00 AM EDT - 01/03/2020 10:55:40 AM EDT [facility] Outpatient Attender: DORA villalpando 08/29/2019 07:20:00 AM EST [facility] ([facility]) Outpatient Attender: Alfred Wall NPReferrer: Alfred BAIGWINNIE-SJP 08/16/2019 11:14:09 AM EST - 08/16/2019 11:58:02 AM EST [facility] Outpatient Attender: Alfred BAIGWINNIE-SJP.WINNIE 019 12:00:00 AM EST - 07/04/2019 11:07:02 AM EST [facility] Outpatient Attender: Aristeo Mckeon MD Physical Therapy 06/22/2019 0 8:30:00 AM EST [facility] ([facility]) Medications Medication Brand Name Start Date Product Form Dose Route Admi nistrative Instructions Pharmacy Instructions Status Indications Reaction Description Data Source(s) pantoprazole 40 MG Delayed Release Oral Tablet pantoprazole (PROTONIX) 40 MG tablet pantoprazole (PROTONIX) 40 MG tablet 06/05/2020 12:00:00 AM EST 40 mg Oral active Take 40 mg by mouth daily [facility] Doxycycline Monohydrate 50 MG Oral Tablet doxycycline (ADOXA) 50 MG tablet doxycycline (ADOXA) 50 MG tablet 05/08/2020 12:00:00 AM EDT 50 mg Oral active Take 50 mg by mouth daily [facility] Simvastatin 40 MG Oral Tablet simvastatin (ZOCOR) 40 M G tablet simvastatin (ZOCOR) 40 MG tablet 03/16/2020 12:00:00 AM EDT 40 mg Oral active Take 1 tablet (40 mg total) by mouth daily [facility] Cyclosporine 0.5 MG/ML Ophthalmic Suspen akila [Restasis] RESTASIS 0.05 % ophthalmic emulsion RESTASIS 0.05 % ophthalmic emulsion 12/13/2019 12:00:0 0 AM EDT active as needed [facility] rivaroxaban 20 MG Oral Tablet rivaroxaban (XARELTO) 20 MG TABS rivaroxaban (XARELTO) 20 MG TABS 10/16/2019 12:00:00 AM EDT 20 mg Oral aborted Take 1 tablet (20 mg total) by mouth daily [facility] Doxycycline Monohydrate 100 MG Oral Capsule Doxycycline Garvin hydrate 09/17/2019 12:00:00 AM EST ORAL active M EDENT ([facility]) 2 ML Sodium Hyaluronate 10 MG/ML Prefilled Syringe [Euflexxa ] Euflexxa 06/22/2019 12:00:00 AM EST active MED[facility] ([facility]) Meclizine Hydrochloride 12.5 MG Oral Tablet meclizine (ANTIVERT) 12.5 MG tablet meclizine (ANTIVERT) 12.5 MG tablet 06/15/2019 12:00:00 AM EST 12.5 m g Oral active Take 12.5 mg by mouth 3 (thr ee) times a day [facility] Insurance Providers Payer name Policy type / Coverage type Policy ID Covered constitution party ID Covered constitution party's relationship to piper Policy Piper Plan Information [facility] [id number] SP [id number] [facility] 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 [id number] SP [id number] [employer] [id number] SP [id number] WELLCARE [id number] SP [id number] Today's Option Commercial [id number] Self [id number] TODAYS OPTIONS [id number] SP [id number] MEDICARE C [id number] S [id number] TODAYS OPTIONS/[place] O [id number] S [id number] O UNAVAILABLE UNAVAILA BLE AARP O [id number] S [id number] Today's Option Commercial [id number] Self [id number] Today's Option Commercial [id number] Self [id number] Today's Option Commercial [id number] Self [id number] MEDICARE C [id number] S [id number] A [facility] O [id number] S [id number] [facility] FINANCIAL NO-FAULT [id number] SP [id number] AARP HEALTH CARE OPTIONS [id number] SP [id number] MEDICARE [id number] SP [id number] A AARP [place] [id number] SP [id number] [place] ([place]) Workers Compensation [id number] Self [id number] Todays Options Medigap Part B [id number] Self [id number] [facility] Options Medigap Part B [id number] Self [id number] Medicare Dme Supplies Medigap Part B [id number] Self [id number] Medicare [facility] Medicare Primary [id number] Self [id number] Today's Options Medicare Commercial [id number] Self [id number] Aarp Medigap Part B [id number] Self [id number] [place] [facility] Medicare Primary [id number] Self [id number] Medicare Dme Supplies Medigap Part B Self Todays Options Medigap Part B Self [facility] Options Medigap Part B Self Medicare [facility] Medicare Primary Self AARP HEALTH CARE OPTIONS [id number] SP [id number] SECURITY [employer] INS CO CLAIM #[id number] CLAIM [id number] SECURITY [employer]UTUAL [id number] MO2 [id number] SECUR[employer]UAL CLIAM#[id number] CLIAM#[id number] SELF PAY UNAVAILABLE SP UNAVAILA BLE MEDICARE [id number] SP [id number] A TODAYS OPTIONS [id number] SP [id number] TODAY OPTIONS/[place] P [id number] S [id number] Problems, Conditions, and Diagnoses Code Display Name Description Problem Type Effective Dates Data Source(s) I35.0 Nonrheumatic aortic (valve) stenosis Nonrheumati c aortic (valve) stenosis Diagnosis 06/13/2020 01:28:08 PM EST [facility] 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 Occlusion and stenosis of bilateral lowery Diagnosis 06/13/2020 01:28:08 PM EST [facility] E78.5 Hyperlipidemia, unspecified Hyperlipidemia, unspecifie d Diagnosis 06/13/2020 01:28:08 PM EST [facility] I48.0 Paroxysmal atrial fibrillation Paroxysmal atrial fibri llation Diagnosis 06/13/2020 01:28:08 PM EST [facility] D64.9 Anemia, unspecified Anemia, unspecified Diagnosis 1 08/13/2019 01:28:08 PM EST [facility] Surgeries/Procedures Procedure Description Date Indications Data Source(s) ECG ROUTINE ECG W/LEAST 12 LDS W/I&R POCT AMB EKG Routine 06/15/2020 9:30 AM EST Paroxysmal atrial fibrillation 06/15/2020 02:30:00 PM EST Pa roxysmal atrial fibrillation [facility] Paroxysmal atrial fibrillation DEBRIDEMENT NAIL ANY METHOD 05/24/2020 12:00:00 AM EST [facility] ([facility] Spirometry 05/14/2020 12:00:00 AM EDT M EDENT ([facility], ) PARING/CUTTING BENIGN HYPERKERATOTIC LESION 2-4 2019 12:00:00 AM EDT [facility] ([facility] DEBRIDEMENT NAIL ANY METHOD 01/19/2020 12:00:00 AM EDT [facility] ([facility] PARING/CUTTING BENIGN HYPERKERATOTIC LESION 2-4 2019 12:00:00 AM EST [facility] ([facility] DEBRIDEMENT NAIL ANY METHOD 6/> 08/11/2019 12:00:00 AM EST [facility] ([facility] ARTHROCENTESIS ASPIR&/INJECTION MAJOR JT/BURSA 019 12:00:00 AM EST [facility] ([facility]) ARTHROCENTESIS ASPIR&/INJECTION MAJOR JT/BURSA 019 12:00:00 AM EST [facility] ([facility]) THERAPEUTIC PX 1/> AREAS EACH 15 MIN EXERCISES 12:00:00 AM EST [facility] ([facility]) THERAPEUTIC PX 1/> AREAS EACH 15 MIN EXERCISES 12:00:00 AM EST [facility] ([facility]) THERAPEUTIC PX 1/> AREAS EACH 15 MIN EXERCISES 12:00:00 AM EST [facility] ([facility]) ARTHROCENTESIS ASPIR&/INJECTION MAJOR JT/BURSA 12:00:00 AM EST [facility] ([facility]) THERAPEUTIC PX 1/> AREAS EACH 15 MIN EXERCISES 12:00:00 AM EST [facility] ([facility]) Results ID Date Data Source [id number] 07/17/2020 12:00:00 AM EST [facility] Olaf Zavala MD Patient Name: VENUS GALEAS [id number] [facility] Date of : 1940[place] Date of Exam: 07/17/2020CARLOS ALBERTO Barnard [id number]#: Fax: [phone] EXAM: CT THORAX WITHOUT CONTRASTCLINICAL INFORMATION: Dyspnea.The latest prior for comparison is 03/09/2015.64 slice low dose helical CT scanning was obtained throughout the thoraxwithout intravenous contrast along with sagittal and coronalreconstructions.There is subcarinal adenopathy which has developed since the last exam.The largest lymph node measures approximately 1.6 cm in its short axisdimension. There are no pleural or pericardial effusions. There is nosignificant change in the imaged upper abdomen. There is chronicpneumobilia. Chronic degenerative changes are again seen involving theimaged spine, increased from the prior exam.Evaluation of the lung pearl show multiple areas of calcified pleuralplaquing and particularly in the lung base regions. Tiny peripheral cysticair spaces are evident in the apical regions and lung bases consistent withearly honeycomb lung formation. There is lung field hyperexpansion andevidence of early varicoid bronchiectasis. In the superior segment of theleft lower lobe, there is a 7 mm sized nodular density.IMPRESSION:1. There is mediastinal adenopathy as described above.2. There are chronic lung field changes as described above. These changeshave increased when compared to the prior exam.3. Calcified pleural plaquing seen on the prior exam but increased.4. Early varicoid bronchiectasis.5. Other findings as described above. Followup should be based onclinical assessment since there is no shira revised Fleischner Societycriteria on the recommendation for followup of such lung fieldabnormalities.Accredited by the [employer] in [place].QUIN Mulligan/Roberto you for referring VENUS GALEAS to our office. Electronically Signed - DIDIER MUSA DO 07/17/20 17:04 Name Value Range Interpretation Code Description Data Zoila rce(s) Supporting Document(s) ID Date Data Source [id number] 05/21/2020 12:00:00 AM EST [facility] Olaf Zavala MD Patient Name: COURTNEY GALEAS [facility] Date of : 1940[place] Date of Exam: 05/21/2020CARLOS ALBERTO Barnard [id number]#: Fax: [phone] EXAM: CHEST (2 VIEW) X-RAYCLINICAL INFORMATION: Dyspnea and central chest pain.Two views. These images were obtained using digital radiography.Comparison, multiples, the latest 11/26/2018.The cardiomediastinal silhouette is unchanged. The heart is not enlarged.The pleural angles are sharp.There are old calcified granulomas, status quo. However, in the rightupper lobe, there is a potential new non-calcified nodular density in anarea very difficult to evaluate with plain radiography.The osseous structures are unchanged.IMPRESSION:Possible new right upper lobe lung nodule. Correlation with chest CT isrecommended.QUIN Mulligan/Roberto you for referring VENUS GALEAS to our office. Electronically Signed - DIDIER MUSA DO 05/21/20 15:11 Name Value Range Interpretation Code Description Data Zoila rce(s) Supporting Document(s) ID Date Data Source [id number] 08/16/2019 06:32:29 PM EST [facility] Name Value Range Interpretation Code Description Data Zoila rce(s) Supporting Document(s) &PDF [facility] [id number] vci [file] [id number]== Procedure Social History Code Duration Value Status Description Data Source(s ) Alcohol intake 06/15/2020 12:00:00 AM EST Never completed [facility] Smoking 06/15/2020 12:00:00 AM EST Former smoker completed Former smoker [facility] Smoking 05/14/2020 12:00:00 AM EDT Non Smoker completed Non Smoke r MED[facility] ([facility], ) Vital Signs ID Date Data Source UNK Name Value Range Interpretation Code Description Data Source(s) Diastolic blood pressure 52 mm[Hg] 52 mm[Hg] [facility] Systolic blood pressure 110 mm[Hg] 110 mm[Hg] [facility] Oxygen saturation in Arterial blood by Pulse oximetry 96 % 96 % [facility] Body mass index (BMI) [Ratio] 22.38 kg/m2 22.38 kg/m2 [facility] Body weight 70.761 kg 70.761 kg [facility] Body height 177.8 cm 177.8 cm [facility] Heart rate 73 /min 73 /min [facility] Body weight 72.576 kg 72.576 kg [facility] ([facility], ) [place] body weight 166 [lb_av] 166 [lb_av] MEDEN T ([facility]) Body mass index (BMI) [Ratio] 23.0 kg/m2 23.0 k g/m2 [facility] ([facility]) Body weight 160.00 [lb_av] 160.00 [lb_av] [facility] T ([facility]) Body height 70 [in_i] 70 [in_i] [facility] ([facility]) 5'10" Oxygen saturation in Arterial blood by Pulse oximetry 97 % 97 % [facility] ([facility]) Room Air Heart rate 73 /min 73 /min [facility] ([facility]) Diastolic blood pressure 64 mm[Hg] 64 mm[Hg] [facility] ([facility]) Systolic blood pressure 118 mm[Hg] 118 mm[Hg] [facility] ([facility]) Body mass index (BMI) [Ratio] 22.2 kg/m2 22.2 k g/m2 [facility] ([facility]) Body height 70 [in_i] 70 [in_i] [facility] ([facility]) 5'10" Body weight 155.00 [lb_av] 155.00 [lb_av] MED[facility] T ([facility], [facility]) Body temperature 97.2 [degF] 97.2 [degF] [facility] ([facility], [facility]) Oxygen saturation in Arterial blood by Pulse oximetry 98 % 98 % [facility] ([facility], [facility]) Respiratory rate 18 /min 18 /min [facility] ( [facility], [facility]) Heart rate 58 /min 58 /min [facility] ([facility], [facility]) Diastolic blood pressure 67 mm[Hg] 67 mm[Hg] [facility] ([facility], [facility]) Systolic blood pressure 111 mm[Hg] 111 mm[Hg] [facility] ([facility]) Body mass index (BMI) [Ratio] 22.2 kg/m2 22.2 k g/m2 [facility] ([facility], [facility]) Body height 70 [in_i] 70 [in_i] [facility] ([facility], [facility]) 5'10" Body weight 155.00 [lb_av] 155.00 [lb_av] MEDEN T ([facility], [facility]) Body temperature 98.2 [degF] 98.2 [degF] [facility] ([facility], [facility]) Respiratory rate 18 /min 18 /min [facility] ( [facility], [facility]) Heart rate 68 /min 68 /min [facility] ([facility], [facility]) Diastolic blood pressure 80 mm[Hg] 80 mm[Hg] [facility] ([facility], [facility]) Systolic blood pressure 134 mm[Hg] 134 mm[Hg] M EDENT ([facility], [facility]) Patient Treatment Plan of Care Planned Activity Planned Date Details Description Data Source (s) pantoprazole 40 MG Delayed Release Oral Tablet 06/05/2020 12:00:00 AM EST [facility] Doxycycline Monohydrate 50 MG Oral Tablet 05/08/2020 12:00:00 AM ED T [facility] Simvastatin 40 MG Oral Tablet 03/16/2020 12:00:00 AM EDT [facility] Cyclosporine 0.5 MG/ML Ophthalmic Suspension [Restasis ] 12/13/2019 12:00:00 AM EDT [facility] rivaroxaban 20 MG Oral Tablet 10/16/2019 12:00:00 AM EDT [facility] Meclizine Hydrochloride 12.5 MG Oral Tablet 06/15/2019 12:00:00 AM EST [facility]
--- OUTSIDE RECORDS SUMMARY | 2020-08-09 10:54 | CCD | Continuity of Care Document ---
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 AUTM [phone] Shanae Lewis MA cc-A AUTM [phone] AUTM Unavailable Problems Active Problems Provider Date [...] Onset : 10/24/2013 Noncompliance with treatment Olaf Zavala MD Onset: 02/17 Dyspnea Misty Steiner, A.N.PChester Onset: 07/29/2012 Ex-smoker Misty Steiner, A.N.P. Onset: 07/30/2011 Overweight Misty Steiner, A.N.P. Onset: 07/30/2011 Body mass index 25-29 - overweight Misty Steiner, A.N.PChester Onset : 07/30/2011 Obstructive sleep apnea syndrome Olaf Zavala MD Onset: 07/17/2010 Social History Type Date [...] CPT Code Status Date Vaccine Lot # [id number] Given 04/30/2015 Influenza Virus Split 3 Yrs [...] lb BMI (Body Mass Index) 23.0 kg/m2 [place] Body Weight 166 lb Weight 72.576 kg 09/18/2016 3:17pm Weight 165.00 lb Weight 74.844 kg Results Description No Information Available Procedures Date Code Description Status 05/14/2020 36784 Spirometry Completed Medical Devices Description No Information Available Encounters Description No Information Available Assessments Date Code Description Provider 05/14/2020 R06.02 Shortness of breath Olaf amos MD 05/14/2020 R91.8 Other nonspecific abnormal findi ng of lung field Olaf Zavala MD 05/14/2020 Z79.02 longterm (current) use of antit hrombotics/antiplatelets Olaf Zavala MD Plan of Treatment 05/14/2020 - Olaf Zavala MD* R06.02 Shortness of breath * R91.8 Other nonspecific abnormal finding of lung field * 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 I await his echo.~ We will update his chest x-ray and pulmonary functions.~ We will try to get records from cardiology.~ Otherwise, he is to return here after testing or certainly, sooner if problems arise with which we can be of assistance. * Follow up:* See after testing Functional Status Description No Information Available Mental Status Description No Information Available Referrals Description No Information Available
--- OUTSIDE RECORDS SUMMARY | 2020-08-09 10:54 | CCD | Continuity of Care Document ---
Author Author Randall XIONG DPM Organization Unknown Address [address] [place] [address], [address] [place] [address] Phone [phone] Problems Active Problems Provider Date Tailor's bunion [...] to base of toes twice daily 30gm aWyne Xiong DPM 08/20/2018 Timolol Maleate 0.5% Solution Unknown Digoxin 125mcg [facility] Doxycycline Hyclate 50mg Capsules Unknown Xarelto Unknown [...] Information Available Procedures Date Code Description Status 05/24/2020 64007 Debridement 6-10 Nails Electric Completed 01/19/2020 50352 Debridement 6-10 Nails Electric Completed 01/19/2020 42978 Paring/Cut Benign Lesion 2 To 4 Completed Medical Devices Description No Information Available Encounters Description No Information Available Assessments Date Code Description Provider 05/24/2020 B35.1 Tinea unguium Wayne Xiong DPM 05/24/2020 I73.89 Other specified peripheral vascu lar diseases Wayne Xiong DPM 01/19/2020 B35.1 Tinea unguium Wayne Xiong DPM 01/19/2020 I73.89 Other specified peripheral vascu lar diseases Wayne Xiong DPM 01/19/2020 L84 Corns and callosities Wayne Xiong DPM Plan of Treatment Future Appointment(s):* 09/20/2020 11:00 am - Wayne Xiong DPM at [facility] Functional Status Description No Information Available Mental Status Description No Information Available Referrals Description No Information Available
--- NOTE | 2020-08-09 11:29 | REP ---
INDICATION: CHEST PAIN COMPARISON: 05/21/2020 TECHNIQUE: Portable AP view of the chest FINDINGS: The mediastinum and cardiac silhouette are stable and within normal limits for portable technique. The lung pearl suggest chronic interstitial changes with subtle superimposed right lower lobe early airspace disease. No effusion or pneumothorax. Skeletal structures are intact. IMPRESSION: Subtle early acute right lower lobe infiltrate cannot be excluded. <Electronically signed by Jaleel Hough > 08/09/20 [id number]
[2020-08-09 11:43] LABS: HEMATOCRIT 27.5 % (42.0-52.0); HEMOGLOBIN 8.5 g/dl (13.5-17.5); MEAN CORPUSCULAR HEMOGLOBIN 33.9 pg (27.0-33.0); MEAN CORPUSCULAR HGB CONC 30.9 g/dl (32.0-36.5); MEAN CORPUSCULAR VOLUME 109.6 fl (80.0-96.0); PLATELET COUNT, AUTOMATED 191 10^3/uL (150-450); RED BLOOD COUNT 2.51 10^6/uL (4.30-6.10)
--- OUTSIDE RECORDS SUMMARY | 2020-08-09 12:06 | CCD ---
Author Author [facility] Organization [facility] Address Unknown Phone Unavailable Care Team Providers Care Property Valuer Name Role Phone Perez, L Leonila PA [...] Unavailable DORA GIBBS PA Unavailable Unavailable DORA IGBBS PA Unavailable Unavailable SAIDORA RILEY PA Unavailable [...] DORA PA Unavailable Unavailable Mae, N Alfred CAR CHANGER Unavailable Unavailable Mae, N Alfred CAR CHANGER Unavailable Unavailable Mae, N Alfred CAR CHANGER Unavailable Unavailable Graham, N Alfred CAR CHANGER Unavailable Unavailable Graham, N Alfred CAR CHANGER Unavailable Unavailable Mae, N Alfred CAR CHANGER Unavailable Unavailable Mae, N Alfred CAR CHANGER Unavailable Unavailable Mae, N Alfred CAR CHANGER Unavailable Unavailable Graham, N Alfred CAR CHANGER Unavailable Unavailable Mae, N Alfred CAR CHANGER Unavailable Unavailable Mae, N Alfred CAR CHANGER Unavailable Unavailable Graham, N Alfred CAR CHANGER Unavailable Unavailable Graham, N Alfred CAR CHANGER Unavailable Unavailable Mae, N Alfred CAR CHANGER Unavailable Unavailable Mae, N Alfred CAR CHANGER Unavailable Unavailable Mae, N Alfred CAR CHANGER Unavailable Unavailable Mae, N Alfred CAR CHANGER Unavailable Unavailable Graham, N Alfred CAR CHANGER Unavailable Unavailable Graham, N Alfred CAR CHANGER Unavailable Unavailable Graham, N Alfred CAR CHANGER Unavailable Unavailable Graham, N Alfred CAR CHANGER Unavailable Unavailable Graham, N Alfred CAR CHANGER Unavailable Unavailable Graham, N Alfred CAR CHANGER Unavailable Unavailable Graham, N Alfred CAR CHANGER Unavailable Unavailable Mae, N Alfred CAR CHANGER Unavailable Unavailable Graham, N Alfred CAR CHANGER Unavailable Unavailable Mae, N Alfred CAR CHANGER Unavailable Unavailable Mae, N Alfred CAR CHANGER Unavailable Unavailable Graham, N Alfred CAR CHANGER Unavailable Unavailable Mae, N Alfred CAR CHANGER Unavailable Unavailable Maring, Dontae PA Unavailable Unavailable Maring, Dontae PA Unavailable Unavailable Maring, Dontae PA Unavailable Unavailable Maring, Dontae PA Unavailable Unavailable Maring, Dontae PA Unavailable Unavailable Maring, Dontae PA Unavailable Unavailable Maring, Dontae PA Unavailable Unavailable Maring, Dontae PA Unavailable Unavailable Maring, Dontae PA Unavailable Unavailable Maring, Dontae PA Unavailable Unavailable Maring, Dontae PA Unavailable Unavailable Maring, Dontae PA Unavailable Unavailable Maring, Dontae PA Unavailable Unavailable Maring, Dontae PA Unavailable Unavailable Re-disclosure Warning The records that [...] is protected by Article 27-F of the [facility] Public Health law. If you continue you may have access to information: Regarding HIV / AIDS; Provided by facilities licensed or operated by the [facility] Office of Mental Health; or Provided by the [facility] Office for People With Developmental Disabilities. If such information is present, then the following [facility] mandated warning applies: This information has been [...] law may result in a fine or senior living sentence or both. A general authorization for the release of medical or other information is NOT sufficient authorization for further disc losure. Family History Family Member Name Family Member Gender Family Member Status Date o f Status Description Data Source(s) Unknown Female Problem [facility] ([facility] () Unknown Unknown Problem [facility] ([facility] Unknown Male Problem [facility] ([facility]) Unknown Male Problem [facility] ([facility]) Unknown Male Problem [facility] ([facility]) Encounters Encounter Providers Location Date Indications Data Source(s ) O Attender: Dontae TAVAREZ 08/09/2020 09:28:44 AM EST [facility] ([facility]) Outpatient Attender: Leonila BAIGWINNIE-SJP.WINNIE 12:00:00 AM EST - 06/13/2020 02:44:23 PM EST [facility] Outpatient Attender: Alfred SMITH-SJPChesterWINNIE 020 12:00:00 AM EDT - 01/03/2020 10:55:40 AM EDT [facility] Outpatient Attender: DORA villalpando 08/29/2019 07:20:00 AM EST [facility] ([facility]) Outpatient Attender: Alfred Wall NPReferrer: Alfred BAIGWINNIE-SJP 08/16/2019 11:14:09 AM EST - 08/16/2019 11:58:02 AM EST [facility] Outpatient Attender: Alfred BAIGWINNIE-SJPChesterWINNIE 019 12:00:00 AM EST - 07/04/2019 11:07:02 AM EST [facility] Outpatient Attender: Aristeo Mckeon MD Physical Therapy 06/22/2019 0 8:30:00 AM EST [facility] ([facility] ) Medications Medication Brand Name Start Date Product Form Dose Route Admi nistrative Instructions Pharmacy Instructions Status Indications Reaction Description Data Source(s) pantoprazole 40 MG Delayed Release Oral Tablet pantoprazole (PROTONIX) 40 MG tablet pantoprazole (PROTONIX) 40 MG tablet 06/05/2020 12:00:00 AM EST 40 mg Oral active Take 40 mg by mouth daily [facility] Doxycycline Monohydrate 50 MG Oral Tablet doxycycline (ADOXA) 50 MG tablet doxycycline (ADOXA) 50 MG tablet 05/08/2020 12:00:00 AM EDT 50 mg Oral active Take 50 mg by mouth daily [facility] Simvastatin 40 MG Oral Tablet simvastatin (ZOCOR) 40 M G tablet simvastatin (ZOCOR) 40 MG tablet 03/16/2020 12:00:00 AM EDT 40 mg Oral active Take 1 tablet (40 mg total) by mouth daily [facility] Cyclosporine 0.5 MG/ML Ophthalmic Suspen akila [Restasis] RESTASIS 0.05 % ophthalmic emulsion RESTASIS 0.05 % ophthalmic emulsion 12/13/2019 12:00:0 0 AM EDT active as needed [facility] rivaroxaban 20 MG Oral Tablet rivaroxaban (XARELTO) 20 MG TABS rivaroxaban (XARELTO) 20 MG TABS 10/16/2019 12:00:00 AM EDT 20 mg Oral aborted Take 1 tablet (20 mg total) by mouth daily [facility] Doxycycline Monohydrate 100 MG Oral Capsule Doxycycline [place] hydrate 09/17/2019 12:00:00 AM EST ORAL active M [facility] ([facility]) 2 ML Sodium Hyaluronate 10 MG/ML Prefilled Syringe [Euflexxa ] Euflexxa 06/22/2019 12:00:00 AM EST active [facility] ([facility]) Meclizine Hydrochloride 12.5 MG Oral Tablet meclizine (ANTIVERT) 12.5 MG tablet meclizine (ANTIVERT) 12.5 MG tablet 06/15/2019 12:00:00 AM EST 12.5 m g Oral active Take 12.5 mg by mouth 3 (thr ee) times a day [facility] Insurance Providers Payer name Policy type / Coverage type Policy ID Covered green party ID Covered green party's relationship to piper Policy Piper Plan Information [facility] [id number] [place] [id number] Valorie f [id number] MEDICARE [id number] SP [id number] WELLCARE O [id number] S [id number] WELLCARE MEDICARE [id number] Valorie 07 [id number] WELLCARE MEDICARE [id number] [place] INS GROUP NF O [id number] S [id number] [place] MEDICAL CLAIMS SP [place] MEDICAL CLAIMS [id number] SP [id number] [place] INS WORKER COMP [id number] SP [id number] [place] INSURANCE GROUP [id number] SP [id number] WELLCARE [id number] SP [id number] Today's Option Commercial [id number] Self [id number] TODAYS OPTIONS [id number] SP [id number] MEDICARE C [id number] S [id number] TODAYS OPTIONS/CITIZEN OF [place] O [id number] S [id number] O UNAVAILABLE UNAVAILA BLE AARP O [id number] S [id number] Today's Option Commercial [id number] Self [id number] Today's Option Commercial [id number] Self [id number] Today's Option Commercial [id number] Self [id number] MEDICARE C [id number] S [id number] A [facility] O [id number] S [id number] [facility] FINANCIAL NO-FAULT [id number] SP [id number] AARP HEALTH CARE OPTIONS [id number] SP [id number] MEDICARE [id number] SP [id number] A AARP [place] [id number] SP [id number] [place] [employer]ra Ins (WC) Workers Compensation [id number] Self [id number] Todays Options Medigap Part B [id number] Self [id number] Aarp Healthcare Options Medigap Part B [id number] Self [id number] Medicare Dme Supplies Medigap Part B [id number] Self [id number] [place] Primary [id number] Self [id number] Today's Options Medicare Commercial [id number] Self [id number] Aarp Medigap Part B [id number] Self [id number] Medicare [facility] Medicare Primary [id number] Self [id number] Medicare Dme Supplies Medigap Part B Self Todays Options Medigap Part B Self Aarp Healthcare Options Medigap Part B Self Medicare [place] Medicare Primary Self AARP HEALTH CARE OPTIONS [id number] SP [id number] SECURITY MUTUAL INS CO CLAIM #[id number] CLAIM [id number] SECURITY MUTUAL [id number] [id number] SECURITY MUTUAL CLIAM#[id number] [id number] CLIAM#[id number] SELF PAY UNAVAILABLE SP UNAVAILA BLE MEDICARE [id number] SP [id number] A TODAYS OPTIONS [id number] SP [id number] TODAYS OPTIONS/CITIZEN OF [place] P [id number] S [id number] Problems, Conditions, and Diagnoses Code Display Name Description Problem Type Effective Dates Data Source(s) I35.0 Nonrheumatic aortic (valve) stenosis Nonrheumati c aortic (valve) stenosis Diagnosis 06/13/2020 01:28:08 PM EST [facility] 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 Occlusion and stenosis of bilateral lowery Diagnosis 06/13/2020 01:28:08 PM EST [facility] E78.5 Hyperlipidemia, unspecified Hyperlipidemia, unspecifie d Diagnosis 06/13/2020 01:28:08 PM EST [facility] I48.0 Paroxysmal atrial fibrillation Paroxysmal atrial fibri llation Diagnosis 06/13/2020 01:28:08 PM EST [facility] D64.9 Anemia, unspecified Anemia, unspecified Diagnosis 1 08/13/2019 01:28:08 PM EST [facility] Surgeries/Procedures Procedure Description Date Indications Data Source(s) ECG ROUTINE ECG W/LEAST 12 LDS W/I&R POCT AMB EKG Routine 06/15/2020 9:30 AM EST Paroxysmal atrial fibrillation 06/15/2020 02:30:00 PM EST Pa roxysmal atrial fibrillation [facility] Paroxysmal atrial fibrillation DEBRIDEMENT NAIL ANY METHOD 6/> 05/24/2020 12:00:00 AM EST [facility] ([facility] Spirometry 05/14/2020 12:00:00 AM MAEGAN DUARTE ([facility], ) PARING/CUTTING BENIGN HYPERKERATOTIC LESION 2-4 2019 12:00:00 AM EDT [facility] ([facility] DEBRIDEMENT NAIL ANY METHOD 01/19/2020 12:00:00 AM EDT [facility] ([facility] PARING/CUTTING BENIGN HYPERKERATOTIC LESION 2-4 2019 12:00:00 AM EST [facility] ([facility] DEBRIDEMENT NAIL ANY METHOD 08/11/2019 12:00:00 AM EST [facility] ([facility] ARTHROCENTESIS ASPIR&/INJECTION MAJOR JT/BURSA 12:00:00 AM EST [facility] ([facility]) ARTHROCENTESIS ASPIR&/INJECTION MAJOR JT/BURSA 12:00:00 AM EST [facility] ([facility]) THERAPEUTIC PX 1/> AREAS EACH 15 MIN EXERCISES 12:00:00 AM EST [facility] ([facility]) THERAPEUTIC PX 1/> AREAS EACH 15 MIN EXERCISES 12:00:00 AM EST [facility] ([facility]) THERAPEUTIC PX 1/> AREAS EACH 15 MIN EXERCISES 12:00:00 AM EST [facility] ([facility]) ARTHROCENTESIS ASPIR&/INJECTION MAJOR JT/BURSA 12:00:00 AM EST [facility] ([facility]) THERAPEUTIC PX 1/> AREAS EACH 15 MIN EXERCISES 12:00:00 AM EST [facility] ([facility]) Results ID Date Data Source [id number] 07/17/2020 12:00:00 AM EST [facility] Olaf Zavala MD Patient Name: VENUS GALEAS19320 [facility] Date of : 1940[place] Date of Exam: 07/17/2020CARLOS ALBERTO Barnard [id number]#: Fax: [phone] EXAM: CT THORAX WITHOUT CONTRASTCLINICAL [...] followup of such lung fieldabnormalities.Accredited by the [employer] in [place].QUIN Mulligan/Roberto you for referring VENUS GALEAS to our office. Electronically Signed - DIDIER MUSA DO 07/17/20 17:04 Name Value Range Interpretation Code Description Data Zoila rce(s) Supporting Document(s) ID Date Data Source [id number] 05/21/2020 12:00:00 AM EST [facility] Olaf Zavala MD Patient Name: COURTNEY GALEAS [facility] Date of : 1940[place] Date of Exam: 05/21/2020CARLOS ALBERTO Barnard [id number]#: Fax: [phone] EXAM: CHEST (2 VIEW) X-RAYCLINICAL [...] rce(s) Supporting Document(s) ID Date Data Source [id number] 08/16/2019 06:32:29 PM EST [facility] Name Value Range Interpretation Code Description Data Zoila rce(s) Supporting Document(s) &PDF [facility] [id number] vci [file] [id number] Procedure Social History Code Duration Value Status Description Data Source(s ) Alcohol intake 06/15/2020 12:00:00 AM EST Never completed [facility] Smoking 06/15/2020 12:00:00 AM EST Former smoker completed Former smoker [facility] Smoking 05/14/2020 12:00:00 AM EDT Non Smoker completed Non Smoke r [facility] ([facility], ) Vital Signs ID Date Data Source UNK Name Value Range Interpretation Code Description Data Source(s) Diastolic blood pressure 52 mm[Hg] 52 mm[Hg] [facility] Systolic blood pressure 110 mm[Hg] 110 mm[Hg] S [facility] Oxygen saturation in Arterial blood by Pulse oximetry 96 % 96 % [facility] Body mass index (BMI) [Ratio] 22.38 kg/m2 22.38 kg/m2 [facility] Body weight 70.761 kg 70.761 kg [facility] Body height 177.8 cm 177.8 cm [facility] Heart rate 73 /min 73 /min [facility] Body weight 72.576 kg 72.576 kg [facility] ([facility], ) [place] body weight 166 [lb_av] 166 [lb_av] MEDEN T ([facility], ) Body mass index (BMI) [Ratio] 23.0 kg/m2 23.0 k g/m2 [facility] ([facility]) Body weight 160.00 [lb_av] 160.00 [lb_av] MEDEN T ([facility], ) Body height 70 [in_i] 70 [in_i] [facility] ([facility], ) 5'10" Oxygen saturation in Arterial blood by Pulse oximetry 97 % 97 % [facility] ([facility], ) Room Air Heart rate 73 /min 73 /min [facility] ([facility], ) Diastolic blood pressure 64 mm[Hg] 64 mm[Hg] [facility] ([facility]) Systolic blood pressure 118 mm[Hg] 118 mm[Hg] [facility], ) Body mass index (BMI) [Ratio] 22.2 kg/m2 22.2 k g/m2 [facility] ([facility] Body height 70 [in_i] 70 [in_i] [facility] ([facility]) 5'10" Body weight 155.00 [lb_av] 155.00 [lb_av] MEDEN T ([facility]) Body temperature 97.2 [degF] 97.2 [degF] [facility] Oxygen saturation in Arterial blood by Pulse oximetry 98 % 98 % [facility] ([facility], [facility]) Respiratory rate 18 /min 18 /min [facility] ( [facility], [facility]) Heart rate 58 /min 58 /min [facility] ([facility], [facility]) Diastolic blood pressure 67 mm[Hg] 67 mm[Hg] [facility] ([facility], [facility]) Systolic blood pressure 111 mm[Hg] 111 mm[Hg] M EDENT ([facility], [facility]) Body mass index (BMI) [Ratio] 22.2 kg/m2 22.2 k g/m2 [facility] ([facility], [facility]) Body height 70 [in_i] 70 [in_i] [facility] ([facility], [facility]) 5'10" Body weight 155.00 [lb_av] 155.00 [lb_av] MEDEN T ([facility], [facility]) Body temperature 98.2 [degF] 98.2 [degF] [facility] ([facility], [facility]) Respiratory rate 18 /min 18 /min [facility]) Heart rate 68 /min 68 /min [facility] ([facility], [facility]) Diastolic blood pressure 80 mm[Hg] 80 mm[Hg] [facility] ([facility], [facility]) Systolic blood pressure 134 mm[Hg] 134 mm[Hg] [facility]) Patient Treatment Plan of Care Planned Activity Planned Date Details Description Data Source (s) pantoprazole 40 MG Delayed Release Oral Tablet 06/05/2020 12:00:00 AM EST [facility] Doxycycline Monohydrate 50 MG Oral Tablet 05/08/2020 12:00:00 AM ED T [facility] Simvastatin 40 MG Oral Tablet 03/16/2020 12:00:00 AM EDT [facility] Cyclosporine 0.5 MG/ML Ophthalmic Suspension [Restasis ] 12/13/2019 12:00:00 AM EDT [facility] rivaroxaban 20 MG Oral Tablet 10/16/2019 12:00:00 AM EDT [facility] Meclizine Hydrochloride 12.5 MG Oral Tablet 06/15/2019 12:00:00 AM EST [facility]
[2020-08-09 12:07] LABS: ATYPICAL LYMPH 6 % (0-5); BLOOD UREA NITROGEN 13 MG/DL (7-18); CALCIUM LEVEL 9.1 MG/DL (8.8-10.2); CARBON DIOXIDE LEVEL 28 MEQ/L (21-32); CHLORIDE LEVEL 104 MEQ/L (98-107); CREATININE FOR GFR 0.85 MG/DL (0.70-1.30); EOSINOPHILS 1 % (0-3); GLOMERULAR FILTRATION RATE > 60.0 (>35); GLUCOSE, FASTING 91 MG/DL (70-100); LYMPHOCYTES 27 % (16-44); METAMYELOCYTES 4 % (0-0); MONOCYTES 18 % (0-5); MYELOCYTES 3 % (0-0); NEUTROPHILS 36 % (28-66); POTASSIUM SERUM 4.3 MEQ/L (3.5-5.1); SODIUM LEVEL 141 MEQ/L (136-145)
[2020-08-09 12:08] LABS: PLATELET ESTIMATE NORMAL (NORMAL)
[2020-08-09 12:09] LABS: ANISOCYTOSIS 2+; HYPOCHROMASIA 2+; POIKILOCYTOSIS 1+
--- NOTE | 2020-08-09 14:17 | ECGEPIP ---
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
--- NOTE | 2020-08-09 14:23 | ECGEPIP ---
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
[2020-08-09 15:03] LABS: RSV AMPLIFICATION NEGATIVE (NEGATIVE)
[2020-08-09] MEDS ORDERED: PANT40TA29 PO (15:13)
[2020-08-09] MEDS ORDERED: FERR1TAB8 PO (15:13)
--- OUTSIDE RECORDS SUMMARY | 2020-08-09 16:59 | CCD ---
Author Author [facility] Organization [facility] Address Unknown Phone Unavailable Care Team Providers Care Vtc Technician Name Role Phone Eprez, L Leonila PA Unavailable Unavailable Perez, L [...] B Aristeo MCKENZIE Unavailable Unavailable Fish, B Aristoe MCKENZIE Unavailable Unavailable DORA GIBBS PA Unavailable [...] DORA PA Unavailable Unavailable Mae, N Alfred MOLECULAR PHYSICIST Unavailable Unavailable Mae, N Alfred MOLECULAR PHYSICIST Unavailable Unavailable Mae, N Alfred MOLECULAR PHYSICIST Unavailable Unavailable Oneco, N Alfred MOLECULAR PHYSICIST Unavailable Unavailable Oneco, N Alfred MOLECULAR PHYSICIST Unavailable Unavailable Mae, N Alfred MOLECULAR PHYSICIST Unavailable Unavailable Mae, N Alfred MOLECULAR PHYSICIST Unavailable Unavailable Mae, N Alfred MOLECULAR PHYSICIST Unavailable Unavailable Oneco, N Alfred MOLECULAR PHYSICIST Unavailable Unavailable Mae, N Alfred MOLECULAR PHYSICIST Unavailable Unavailable Mae, N Alfred MOLECULAR PHYSICIST Unavailable Unavailable Oneco, N Alfred MOLECULAR PHYSICIST Unavailable Unavailable Oneco, N Alfred MOLECULAR PHYSICIST Unavailable Unavailable Mae, N Alfred MOLECULAR PHYSICIST Unavailable Unavailable Mae, N Alfred MOLECULAR PHYSICIST Unavailable Unavailable Mae, N Alfred MOLECULAR PHYSICIST Unavailable Unavailable Mae, N Alfred MOLECULAR PHYSICIST Unavailable Unavailable Oneco, N Alfred MOLECULAR PHYSICIST Unavailable Unavailable Oneco, N Alfred MOLECULAR PHYSICIST Unavailable Unavailable Oneco, N Alfred MOLECULAR PHYSICIST Unavailable Unavailable Oneco, N Alfred MOLECULAR PHYSICIST Unavailable Unavailable Oneco, N Alfred MOLECULAR PHYSICIST Unavailable Unavailable Oneco, N Alfred MOLECULAR PHYSICIST Unavailable Unavailable Oneco, N Alfred MOLECULAR PHYSICIST Unavailable Unavailable Mae, N Alfred MOLECULAR PHYSICIST Unavailable Unavailable Oneco, N Alfred MOLECULAR PHYSICIST Unavailable Unavailable Mae, N Alfred MOLECULAR PHYSICIST Unavailable Unavailable Mae, N Alfred MOLECULAR PHYSICIST Unavailable Unavailable Oneco, N Alfred MOLECULAR PHYSICIST Unavailable Unavailable Mae, N Alfred MOLECULAR PHYSICIST Unavailable Unavailable Maring, Dontae PA Unavailable Unavailable [...] is protected by Article 27-F of the [facility] Public Health law. If you continue you may have access to information: Regarding HIV / AIDS; Provided by facilities licensed or operated by the [facility] Office of Mental Health; or Provided by the [facility] Office for People With Developmental Disabilities. If such information is present, then the following [facility] mandated warning applies: This information has been [...] law may result in a fine or mcc sentence or both. A general authorization for the release of medical or other information is NOT sufficient authorization for further disc losure. Family History Family Member Name Family Member Gender Family Member Status Date o f Status Description Data Source(s) Unknown Female Problem [facility] ([facility] () Unknown Unknown Problem [facility] ([facility]) Unknown Male Problem [facility] ([facility]) Unknown Male Problem [facility] ([facility]) Unknown Male Problem [facility] ([facility]) Encounters Encounter Providers Location Date Indications Data Source(s ) O Attender: Dontae TAVAREZ 08/09/19 09:28:44 AM EST - 08/09/2020 10:26:27 AM EST [facility] ([facility] ) Outpatient Attender: Leonila BAIGWINNIE-SJP.WINNIE 12:00:00 AM EST - 06/13/2020 02:44:23 PM EST [facility] Outpatient Attender: Alfred SMITH-SJPChesterWINNIE 020 12:00:00 AM EDT - 01/03/2020 10:55:[address] [facility] Outpatient Attender: DORA villalpando 08/29/2019 07:20:00 AM EST [facility] Outpatient Attender: Alfred Wall NPReferrer: Alfred SMITH-SJP 08/16/2019 11:14:09 AM EST - 08/16/2019 11:58:02 AM EST [facility] Outpatient Attender: Alfred BAIGWINNIE-SJPChesterWINNIE 019 12:00:00 AM EST - 07/04/2019 11:07:02 AM [facility] Outpatient Attender: Aristeo Mckeon MD Physical Therapy 06/22/2019 0 8:30:00 AM EST [facility] ([facility] Medications Medication Brand Name Start Date Product Form Dose Route Admi nistrative Instructions Pharmacy Instructions Status Indications Reaction Description Data Source(s) pantoprazole 40 MG Delayed Release Oral Tablet pantoprazole (PROTONIX) 40 MG tablet pantoprazole (PROTONIX) 40 MG tablet 06/05/2020 12:00:00 AM EST 40 mg Oral active Take 40 mg by mouth daily [facility] Doxycycline Monohydrate 50 MG Oral Tablet doxycycline (ADOXA) 50 MG tablet doxycycline (ADOXA) 50 MG tablet 05/08/2020 12:00:00 AM EDT 50 mg Oral active Take 50 mg by mouth daily [facility] Simvastatin 40 MG Oral Tablet simvastatin (ZOCOR) 40 M G tablet simvastatin (ZOCOR) 40 MG tablet 03/16/2020 12:00:00 AM EDT 40 mg Oral active Take 1 tablet (40 mg total) by mouth daily [facility] Cyclosporine 0.5 MG/ML Ophthalmic Suspen akila [Restasis] RESTASIS 0.05 % ophthalmic emulsion RESTASIS 0.05 % ophthalmic emulsion 12/13/2019 12:00:0 0 AM EDT active as needed [facility] rivaroxaban 20 MG Oral Tablet rivaroxaban (XARELTO) 20 MG TABS rivaroxaban (XARELTO) 20 MG TABS 10/16/2019 12:00:00 AM EDT 20 mg Oral aborted Take 1 tablet (20 mg total) by mouth daily [facility] Doxycycline Monohydrate 100 MG Oral Capsule Doxycycline Lamoure hydrate 09/17/2019 12:00:00 AM EST ORAL active M [facility] ([facility] 2 ML Sodium Hyaluronate 10 MG/ML Prefilled Syringe [Euflexxa ] Euflexxa 06/22/2019 12:00:00 AM EST active [facility] ([facility]) Meclizine Hydrochloride 12.5 MG Oral Tablet meclizine (ANTIVERT) 12.5 MG tablet meclizine (ANTIVERT) 12.5 MG tablet 06/15/2019 12:00:00 AM EST 12.5 m g Oral active Take 12.5 mg by mouth 3 (thr ee) times a day [facility] Insurance Providers Payer name Policy type / Coverage type Policy ID Covered constitution party ID Covered constitution party's relationship to piper Policy Piper Plan Information [facility] [id number] Well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 [id number] Valorie f [id number] MEDICARE [id number] SP [id number] WELLCARE O [id number] S [id number] WELLCARE MEDICARE [id number] Valorie 07 [id number] WELLCARE MEDICARE [id number] ANTIOCH INS GROUP NF O [id number] S [id number] ANTIOCH MEDICAL CLAIMS SP ANTIOCH MEDICAL CLAIMS [id number] SP [id number] ANTIOCH INS WORKER COMP [id number] SP [id number] ANTIOCH INSURANCE GROUP [id number] SP [id number] WELLCARE [id number] SP [id number] Today's Option Commercial [id number] Self [id number] TODAYS OPTIONS [id number] SP [id number] MEDICARE C [id number] S [id number] TODAYS OPTIONS/CITIZEN OF [place] O [id number] S [id number] O UNAVAILABLE UNAVAILA BLE AARP O [id number] S [id number] Today's Option Commercial [id number] Self [id number] Today's Option Commercial [id number] Self [id number] Today's Option Commercial [id number] Self [id number] MEDICARE C [id number] S [id number] A [facility] O [id number] S [id number] [facility] FINANCIAL NO-FAULT [id number] SP [id number] AARP HEALTH CARE OPTIONS [id number] SP [id number] MEDICARE [id number] SP [id number] A AARP POTWIN [id number] SP [id number] [place] Ins ([place]) Workers Compensation [id number] Self [id number] Todays Options Medigap Part B [id number] Self [id number] Aarp Healthcare Options Medigap Part B [id number] Self [id number] Medicare Dme Supplies Medigap Part B [id number] Self [id number] [place] Primary [id number] Self [id number] Today's Options Medicare Commercial [id number] Self [id number] Aarp Medigap Part B [id number] Self [id number] [place] Medicare Primary [id number] Self [id number] Medicare Dme Supplies Medigap Part B Self [place]ays Options Medigap Part B Self Aarp Healthcare Options Medigap Part B Self Medicare [place] Medicare Primary Self AARP HEALTH CARE OPTIONS [id number] SP [id number] SECURITY MUTUAL INS CO CLAIM #[id number] CLAIM [id number] SECURITY MUTUAL [id number] [id number] SECURITY MUTUAL [id number] CLIAM#[id number] SELF PAY UNAVAILABLE SP UNAVAILA BLE MEDICARE [id number] SP [id number] A TODAYS OPTIONS [id number] SP [id number] TODAYS OPTIONS/CITIZEN OF [place] P [id number] S [id number] Problems, Conditions, and Diagnoses Code Display Name Description Problem Type Effective Dates Data Source(s) I35.0 Nonrheumatic aortic (valve) stenosis Nonrheumati c aortic (valve) stenosis Diagnosis 06/13/2020 01:28:[address] 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 Occlusion and stenosis of bilateral lowery Diagnosis 06/13/2020 01:28:08 PM EST [facility] E78.5 Hyperlipidemia, unspecified Hyperlipidemia, unspecifie d Diagnosis 06/13/2020 01:28:08 PM EST [facility] I48.0 Paroxysmal atrial fibrillation Paroxysmal atrial fibri llation Diagnosis 06/13/2020 01:28:08 PM EST [facility] D64.9 Anemia, unspecified Anemia, unspecified Diagnosis 1 08/13/2019 01:28:08 PM EST [facility] Surgeries/Procedures Procedure Description Date Indications Data Source(s) ECG ROUTINE ECG W/LEAST 12 LDS W/I&R POCT AMB EKG Routine 06/15/2020 9:30 AM EST Paroxysmal atrial fibrillation 06/15/2020 02:30:00 PM EST Pa roxysmal atrial fibrillation [facility] Paroxysmal atrial fibrillation DEBRIDEMENT NAIL ANY METHOD 6/> 05/24/2020 12:00:00 AM EST [facility] ([facility] Spirometry 05/14/2020 12:00:00 AM MAEGAN DUARTE ([facility], ) PARING/CUTTING BENIGN HYPERKERATOTIC LESION 2-4 2019 12:00:00 AM EDT [facility] ([facility] DEBRIDEMENT NAIL ANY METHOD 01/19/2020 12:00:00 AM EDT [facility] ([facility] PARING/CUTTING BENIGN HYPERKERATOTIC LESION 2-4 2019 12:00:00 AM EST [facility] ([facility] DEBRIDEMENT NAIL ANY METHOD 08/11/2019 12:00:00 AM EST [facility] ([facility] ARTHROCENTESIS ASPIR&/INJECTION MAJOR JT/BURSA 12:00:00 AM EST [facility] ([facility]) ARTHROCENTESIS ASPIR&/INJECTION MAJOR JT/BURSA 12:00:00 AM EST [facility] ([facility]) THERAPEUTIC PX 1/> AREAS EACH 15 MIN EXERCISES 12:00:00 AM EST [facility] ([facility]) THERAPEUTIC PX 1/> AREAS EACH 15 MIN EXERCISES 12:00:00 AM EST [facility] ([facility]) THERAPEUTIC PX 1/> AREAS EACH 15 MIN EXERCISES 12:00:00 AM EST [facility] ([facility]) ARTHROCENTESIS ASPIR&/INJECTION MAJOR JT/BURSA 12:00:00 AM EST [facility] ([facility]) THERAPEUTIC PX 1/> AREAS EACH 15 MIN EXERCISES 12:00:00 AM EST [facility] ([facility]) Results ID Date Data Source [id number] 07/17/2020 12:00:00 AM EST [facility] ology Imaging Olaf Zavala MD Patient Name: VENUS GALEAS [id number] [facility] Date of : 1940[place] Date of Exam: 07/17/2020CARLOS ALBERTO Barnard [id number]#: Fax: [phone] EXAM: CT THORAX WITHOUT CONTRASTCLINICAL [...] followup of such lung fieldabnormalities.Accredited by the [employer] in [place].QUIN Mulligan/Roberto you for referring VENUS GALEAS to our office. Electronically Signed - DIDIER MUSA DO 07/17/20 17:04 Name Value Range Interpretation Code Description Data Zoila rce(s) Supporting Document(s) ID Date Data Source [id number] 05/21/2020 12:00:00 AM EST [facility] Imaging Olaf Zavala MD Patient Name: SANG GALEAS20 [facility] Date of : 1940[place] Date of Exam: 05/21/2020CARLOS ALBERTO Barnard [id number]#: Fax: [phone] EXAM: CHEST (2 VIEW) X-RAYCLINICAL [...] rce(s) Supporting Document(s) ID Date Data Source [id number] 08/16/2019 06:32:29 PM EST [facility] Name Value Range Interpretation Code Description Data Zoila rce(s) Supporting Document(s) &PDF [facility] [id number] vci [file] [id number] Procedure Social History Code Duration Value Status Description Data Source(s ) Alcohol intake 06/15/2020 12:00:00 AM EST Never completed [facility] Smoking 06/15/2020 12:00:00 AM EST Former smoker completed Former smoker [facility] Smoking 05/14/2020 12:00:00 AM EDT Non Smoker completed Non Smoke r [facility] ([facility], ) Vital Signs ID Date Data Source UNK Name Value Range Interpretation Code Description Data Source(s) Diastolic blood pressure 52 mm[Hg] 52 mm[Hg] [facility] Systolic blood pressure 110 mm[Hg] 110 mm[Hg] [facility] Oxygen saturation in Arterial blood by Pulse oximetry 96 % 96 % [facility] Body mass index (BMI) [Ratio] 22.38 kg/m2 22.38 kg/m2 [facility] Body weight 70.761 kg 70.761 kg [facility] Body height 177.8 cm 177.8 cm [facility] Heart rate 73 /min 73 /min [facility] Body weight 72.576 kg 72.576 kg [facility] ([facility], ) [place] body weight 166 [lb_av] 166 [lb_av] MED[facility] T ([facility], ) Body mass index (BMI) [Ratio] 23.0 kg/m2 23.0 k g/m2 [facility] ([facility], ) Body weight 160.00 [lb_av] 160.00 [lb_av] [facility] ([facility], ) Body height 70 [in_i] 70 [in_i] [facility] ([facility], ) 5'10" Oxygen saturation in Arterial blood by Pulse oximetry 97 % 97 % [facility] ([facility], ) Room Air Heart rate 73 /min 73 /min [facility] ([facility], ) Diastolic blood pressure 64 mm[Hg] 64 mm[Hg] [facility] ([facility], ) Systolic blood pressure 118 mm[Hg] 118 mm[Hg] M [facility] ([facility], ) Body mass index (BMI) [Ratio] 22.2 kg/m2 22.2 k g/m2 [facility] ([facility]) Body height 70 [in_i] 70 [in_i] [facility] ([facility]) 5'10" Body weight 155.00 [lb_av] 155.00 [lb_av] [facility] ([facility]) Body temperature 97.2 [degF] 97.2 [degF] [facility] ([facility]) Oxygen saturation in Arterial blood by Pulse oximetry 98 % 98 % [facility] ([facility]) Respiratory rate 18 /min 18 /min [facility] ( [facility], [facility]) Heart rate 58 /min 58 /min [facility] ([facility], [facility]) Diastolic blood pressure 67 mm[Hg] 67 mm[Hg] [facility] ([facility], [facility]) Systolic blood pressure 111 mm[Hg] 111 mm[Hg] [facility] ([facility]) Body mass index (BMI) [Ratio] 22.2 kg/m2 22.2 k g/m2 [facility] ([facility], [facility]) Body height 70 [in_i] 70 [in_i] [facility] ([facility], [facility]) 5'10" Body weight 155.00 [lb_av] 155.00 [lb_av] [facility] ([facility], [facility]) Body temperature 98.2 [degF] 98.2 [degF] [facility] ([facility], [facility]) Respiratory rate 18 /min 18 /min [facility] ( [facility], [facility]) Heart rate 68 /min 68 /min [facility] ([facility], [facility]) Diastolic blood pressure 80 mm[Hg] 80 mm[Hg] [facility] ([facility]) Systolic blood pressure 134 mm[Hg] 134 mm[Hg] [facility] ([facility], [facility]) Patient Treatment Plan of Care Planned Activity Planned Date Details Description Data Source (s) pantoprazole 40 MG Delayed Release Oral Tablet 06/05/2020 12:00:00 AM EST [facility] Doxycycline Monohydrate 50 MG Oral Tablet 05/08/2020 12:00:00 AM ED T [facility] Simvastatin 40 MG Oral Tablet 03/16/2020 12:00:00 AM EDT [facility] Cyclosporine 0.5 MG/ML Ophthalmic Suspension [Restasis ] 12/13/2019 12:00:00 AM EDT [facility] rivaroxaban 20 MG Oral Tablet 10/16/2019 12:00:00 AM EDT [facility] Meclizine Hydrochloride 12.5 MG Oral Tablet 06/15/2019 12:00:00 AM EST [facility]
--- NOTE | 2020-08-09 17:19 | HPEPDOC ---
[facility] Medical History & Physical Date of Admission Aug 09, 2020 Date of Service: Aug 09, 2020 Attending Physician: NASRA ALANIS MD History and Physical CHIEF COMPLAINT: Exertional chest pain and dizziness HISTORY OF PRESENT ILLNESS: CHIEF COMPLAINT: Dizziness HISTORY OF PRESENT ILLNESS: 80M with a PMHx of COPD, HTN, paroxysmal A fib previously on NoAC, glaucoma, who was recently admitted in 05/2020 for the same with c/f GIB and had a clean EGD/colo without evidence of GIB but notably longstanding smouldering atypical differential on CBC c/f hematologic pathology, not otherwise noted at that time, who now returns to ED for exertional chest pain and dizziness and weakness at h ome for several days. He denies any episodes of syncope, palpitations, headaches, fever, chills, abdominal pain, diarrhea, constipation, melena, hematochezia, hematemesis, hemoptysis, easy bruising or new medications. Of note during his last admission, he had an echo that showed significant aortic s tenosis moderate to severe, most likely severe with a mean aortic gradient of 36 mm, aortic valve area 0.9 square cm, mild mitral stenosis and Dr. Bryan is his bus starter. On ED speaking with Dr. Bryan, they report that Dr. Bryan reported a prior history of clean LHC with no CAD history. In the ED, he was hemodynamically stable, afebrile and breathing comfortably on room air. Workup was notable for hgb 8.5, WBC 5, platelets 191, EKG with NSR without ST changes, troponin wnl, CXR without congestion with possible RLL early infiltrate, negative covid-19 testing and differential that continues to show elevated lymphocytes, monocytes, some precursor cells and macrocytic anemia. After discussion with hematology (Jack) and Randi and ED, decision was made to admit him for blood transfusion with plan for referral to hematology and back to cardiology at discharge. The thought thus far is that chest pain is likely resulting from the combination of severe and anemia. Dr. Santiago will see him outpatient for a bone marrow biopsy as it seems he may have myelodysplastic phenomenon. 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 Denies tobacco use currently last smoked 1969 Denies illicit drug use Patient lives at home with his and dog FAMILY HISTORY: Father had Parkinson's Brother has diabetes ALLERGIES: Please see below. HOME MEDICATIONS: Please see below. PHYSICAL EXAMINATION: Constitutional: Awake and alert, in no apparent distress, NAD, pale ENT: Sclera are clear. Mucosa is moist. Respiratory: CTAB No respiratory distress. No use of accessory muscles. Breathing comfortably on room air saturating 97% Cardiovascular: Heart rate is regular, holosystolic 2+ systolic murmur at RUSB but can be heard throughout precordium Gastrointestinal: Abdomen is soft, non distended, non tender, BS present. Neurologic: No focal neurological deficit. CN3-12 intact. moving all extremities Mental Status: A&O x3, normal affect Skin: Warm, dry, pale LABORATORY DATA AND IMAGING: as summarized above MICROBIOLOGY: Please see below. ASSESSMENT: 80M with a PMHx of COPD, HTN, paroxysmal A fib previously on NoAC, glaucoma, who was recently admitted in 05/2020 for the same with c/f GIB and had a clean EGD/colo without evidence of GIB but notably longstanding smouldering atypical d ifferential on CBC c/f hematologic pathology, not otherwise noted at that time, who now returns to ED for exertional chest pain and dizziness who is being admitted for blood transfusion with plan for referral to hematology and back to cardiology at discharge, with the thought that chest pain is likely resulting from the combination of severe and anemia. Dr. Santiago will see him outpatient for a bone marrow biopsy as it seems he may have myelodysplasia. # Symptomatic anemia: 2/2 hematologic pathology -no iron deficiency per 05/2020 labs, also on iron sulfate -no B12 deficiency per 05/2020 labs -no folate deficiency per 05/2020 labs -No verified history of GIB with recent clean EGD/colo with no evidence of GIB -abnormal CBC differential over a few year now c/f myelodysplasia --> discussed with Dr. Santiago --> will refer to outpatient hematology for bone marrow biopsy -2u pRBCs #Chest pain i/s/o anemia and severe -EKG was NSR without ischemic changes -troponin was negative -telemetry -Dr. Bryan was called by ED, will refer back to see him as an outpatient -no hx of CAD, with prior clean LHC -05/2020 TTE showed moderate to severe, most likely severe with a mean aortic gradient of 36 mm, aortic valve area 0.9 square cm, mild mitral stenosis, with normal EF and no WMA # Paroxysmal Afib: EKG in NSR. Regular HR on exam. Xarelto was stopped after the anemia admission in 05/2020, was not restarted in the outpatient setting. -Follow-up with cardiology OP. # Hx of COPD: follows with Dr Zavala. -albuterol PRN. -Symbicort scheduled. # DVT prophylaxis: TEDs and SCDs Dispo: obs, likely home tomorrow Vital Signs Vital Signs Date Time Temp Pulse Resp B/P (MAP) Pulse Ox O2 Delivery O2 Flow Rate FiO2 08/09/20 15:45 71 118/62 (80) 96 08/09/20 11:41 18 08/09/20 10:42 96.8 Room Air Laboratory Data Labs 24H Laboratory Tests 2 08/09/20 11:30: Immature Granulocyte % (Auto) , Neutrophils (%) (Auto) , Nucleated Red Blood Cells % (auto) 0.0, Neutrophils 36, Band Neutrophils 5, Lymphocytes (Manual) 27, Monocytes (Manual) 18H, Eosinophils (Manual) 1, Metamyelocytes 4H, Myelocytes 3H, Atypical Lymphocytes 6H, Hypochromasia 2+, Poikilocytosis 1+, Anisocytosis 2+, Platelet Estimate NORMAL, Anion Gap 9, Glomerular Filtration Rate > 60.0, Calcium Level 9.1 08/09/20 11:35: POC Troponin I (Misc) 0.02 08/09/20 13:33: POC Troponin I (Misc) 0.01 08/09/20 14:15: Coronavirus (COVID-19)(PCR) NEGATIVE, Influenza Type A (RT-PCR) NEGATIVE, Influenza Type B (RT-PCR) NEGATIVE, Respiratory Syncytial Virus (PCR) NEGATIVE CBC/BMP Laboratory Tests 08/09/20 11:30 Home Medications Scheduled Ascorbic Acid (Ascorbic Acid) 500 Mg Tablet, 500 MG PO DAILY Calcium Carbonate/Vitamin D3 (Calcium 500-Vit D3 200 Tablet) 1 Each Tablet, 1 TAB PO DAILY Cholecalciferol (Vitamin D3) (Vitamin D3) 1,000 Unit Tablet, 1,000 UNITS PO DAILY Cyclosporine (Restasis) 0.05% Droperette, 1 DROP OU BID Doxycycline Monohydrate (Doxycycline Monohydrate) 50 Mg Tablet, 50 MG PO DAILY Ferrous Sulfate (Ferrous Sulfate) 325 Mg Tablet, 325 MG PO DAILY Gluc Gramajo/Chondro Gramajo A/Vit C/Mn (Glucosamine Chondroitin Tab) 1 Each Tablet, 1 TAB PO DAILY Meclizine HCl (Meclizine HCl) 12.5 Mg Tablet, 12.5 MG PO TID Multivitamins (Thera M Plus Tablet) 1 Each Tablet, 1 TAB PO DAILY [place]-3 Fatty Acids ([place]-3) 1,000 Mg Capsule, 1,000 MG PO DAILY Pantoprazole Sodium (Pantoprazole Sodium) 40 Mg Tablet.dr, 40 MG PO DAILY Simvastatin (Simvastatin) 40 Mg Tablet, 40 MG PO QHS Timolol Maleate (Timolol Maleate) 0.5% 5ML Drops, 1 DROP OU DAILY Allergies Coded Allergies: No Known Allergies (Unverified , 11/17/18) A-FIB/CHADSVASC A-FIB History Current/History of A-Fib/PAF?: Yes Current PO Anticoag Therapy: No Age/Risk Factor Scoring CHADSVASC: CHADSVASC Response (Comments) Value Age Risk Factor Age >/= 75 years old 2 Gender Risk Factor Male 0 Hx of CHF No 0 Hx of HTN No 0 Hx of Stroke/TIA/or VTE No 0 Hx of Diabetes No 0 Hx of Vascular Disease No 0 Total 2 Treatment Treatment ordered: NONE Reason Anticoagulant not given: Other Other reason anticoagulant not: symptomatic anemia NASRA ALANIS MD Aug 09, 2020 17:19
[2020-08-09] MEDS: SIMVASTATIN 40 MG TAB PO SCH (20:50)
[2020-08-09] MEDS: POLYVINYL ALCOHOL OPHTH SOLN 15 ML(LIQUITEARS) OU SCH (23:54)
[2020-08-09] MEDS: MECLIZINE 12.5 MG TAB PO SCH (23:54)
[2020-08-10] VITALS (7 sets, daily range): BP systolic 68–132; BP diastolic 51–67
[2020-08-10 06:52] LABS: HEMATOCRIT 32.9 % (42.0-52.0); HEMOGLOBIN 10.4 g/dl (13.5-17.5); MEAN CORPUSCULAR HEMOGLOBIN 32.3 pg (27.0-33.0); MEAN CORPUSCULAR HGB CONC 31.6 g/dl (32.0-36.5); MEAN CORPUSCULAR VOLUME 102.2 fl (80.0-96.0); PLATELET COUNT, AUTOMATED 181 10^3/uL (150-450); RED BLOOD COUNT 3.22 10^6/uL (4.30-6.10); WHITE BLOOD COUNT 6.1 10^3/uL (4.0-10.0)
[2020-08-10 07:16] LABS: BLOOD UREA NITROGEN 13 MG/DL (7-18); CALCIUM LEVEL 9.1 MG/DL (8.8-10.2); CARBON DIOXIDE LEVEL 28 MEQ/L (21-32); CHLORIDE LEVEL 105 MEQ/L (98-107); CREATININE FOR GFR 0.96 MG/DL (0.70-1.30); GLOMERULAR FILTRATION RATE > 60.0 (>35); GLUCOSE, FASTING 86 MG/DL (70-100); POTASSIUM SERUM 4.4 MEQ/L (3.5-5.1); SODIUM LEVEL 141 MEQ/L (136-145)
[2020-08-10] MEDS: OMEGA-3 1000MG CAPSULE PO SCH (08:15)
[2020-08-10] MEDS: MECLIZINE 12.5 MG TAB PO SCH ×3 (08:15→20:22)
[2020-08-10] MEDS: PANTOPRAZOLE 40MG TAB (PROTONIX) PO SCH (08:15)
[2020-08-10] MEDS: CALCIUM/VITAMIN D 500 MG TAB PO SCH (08:15)
[2020-08-10] MEDS: FERROUS SULFATE 325MG TAB PO SCH (08:15)
[2020-08-10] MEDS: MULTIVITAMINS/MINERALS THERAP 1 TAB PO SCH (08:15)
[2020-08-10] MEDS: VITAMIN D 1,000 INTERNATIONAL UNITS TABLET PO SCH (08:15)
[2020-08-10] MEDS: TIMOLOL MALEATE 0.5% OPHTH SOLN 5 ML OU SCH (08:15)
[2020-08-10] MEDS: ASCORBIC ACID 500 MG TAB PO SCH (08:15)
[2020-08-10] MEDS: POLYVINYL ALCOHOL OPHTH SOLN 15 ML(LIQUITEARS) OU SCH ×2 (08:18→20:23)
--- NOTE | 2020-08-10 08:34 | DS.PDOC ---
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 HISTORY OF PRESENT ILLNESS: 80M with a PMHx of COPD, HTN, paroxysmal A fib previously on NoAC, glaucoma, who was recently admitted in 05/2020 for the same with c/f GIB and had a clean EGD/colo without evidence of GIB but notably longstanding smouldering atypical differential on CBC c/f hematologic pathology, not otherwise noted at that time, who returned to ED 1m after hospital discharge for exertional chest pain and dizziness and weakness at home for the same complaints for several days. He denied any episodes of syncope, palpitations, headaches, fever, chills, abdominal pain, diarrhea, constipation, melena, hematochezia, hematemesis, hemoptysis, easy bruising or new medications. 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 On ED speaking with Dr. Bryan, they report that Dr. Bryan reported a prior history of clean LHC with no CAD history. HOSPITAL COURSE: In the ED, he was hemodynamically stable, afebrile and breathing comfortably on room air. Workup was notable for hgb 8.5, WBC 5, platelets 191, EKG with NSR without ST changes, troponin wnl, CXR without congestion with possible RLL early infiltrate, negative covid-19 testing and differential that continues to show elevated lymphocytes, monocytes, some precursor cells and macrocytic anemia. After discussion with hematology (Jack) and Randi and ED, decision was made to admit him for blood transfusion with plan for referral to hematology and back to cardiology at discharge with the conclusion that his chest pain is likely resulting from the combination of severe and anemia. Dr. Santiago will see him outpatient for a bone marrow biopsy as it seems he may have myelodysplastic phenomenon. Of note he does not have Fe deficiency, Vit B12 deficiency or folate deficiency per 05/2020 anemia workup. He received 2u pRBCs and he is now being discharged home with referral to hematology and cardiology follow up. DISCHARGE MEDICATIONS: Please see below. ALLERGIES: Please see below. PHYSICAL EXAMINATION ON DISCHARGE: VITAL SIGNS: Please see below. Constitutional: Awake and alert, in no apparent distress, NAD, pale ENT: Sclera are clear. Mucosa is moist. Respiratory: CTAB No respiratory distress. No use of accessory muscles. Breathing comfortably on room air saturating 97% Cardiovascular: Heart rate is regular, holosystolic 2+ systolic murmur at RUSB but can be heard throughout precordium Gastrointestinal: Abdomen is soft, non distended, non tender, BS present. Neurologic: No focal neurological deficit. CN3-12 intact. moving all extremities Mental Status: A&O x3, normal affect Skin: Warm, dry, pale LABORATORY DATA: Please see below. IMAGING: CXR: no acute pathology PROGNOSIS: Good ACTIVITY: As tolerated DIET: Regular DISCHARGE PLAN: Home with hematology referral and cardiology follow up DISPOSITION: Home DISCHARGE INSTRUCTIONS: Home with hematology referral and cardiology follow up ITEMS TO FOLLOWUP ON ON OUTPATIENT: Chest pain Anemia DISCHARGE CONDITION: Stable TIME SPENT ON DISCHARGE: 36 minutes. Vital Signs/I&Os Vital Signs Date Time Temp Pulse Resp B/P (MAP) Pulse Ox O2 Delivery O2 Flow Rate FiO2 08/10/20 06:00 97.9 82 18 115/67 (83) 94 Room Air 08/09/20 23:05 93.0 I&O- Last 24 Hours up to 6 AM 08/10/20 06:00 Intake Total 2270 ml Output Total 0 ml Balance 2270 ml Laboratory Data Labs 24H Laboratory Tests 2 08/09/20 11:30: Immature Granulocyte % (Auto) , Neutrophils (%) (Auto) , Nucleated Red Blood Cells % (auto) 0.0, Neutrophils 36, Band Neutrophils 5, Lymphocytes (Manual) 27, Monocytes (Manual) 18H, Eosinophils (Manual) 1, Metamyelocytes 4H, Myelocytes 3H, Atypical Lymphocytes 6H, Hypochromasia 2+, Poikilocytosis 1+, Anisocytosis 2+, Platelet Estimate NORMAL, Anion Gap 9, Glomerular Filtration Rate > 60.0, Calcium Level 9.1 08/09/20 11:35: POC Troponin I (Misc) 0.02 08/09/20 13:33: POC Troponin I (Misc) 0.01 08/09/20 14:15: Coronavirus (COVID-19)(PCR) NEGATIVE, Influenza Type A (RT-PCR) NEGATIVE, Influenza Type B (RT-PCR) NEGATIVE, Respiratory Syncytial Virus (PCR) NEGATIVE 08/10/20 06:32: Nucleated Red Blood Cells % (auto) 0.0, Anion Gap 8, Glomerular Filtration Rate > 60.0, Calcium Level 9.1 CBC/BMP Laboratory Tests 08/09/20 11:30 08/10/20 06:32 Discharge Medications Scheduled Ascorbic Acid (Ascorbic Acid) 500 Mg Tablet, 500 MG PO DAILY, (Reported) Calcium Carbonate/Vitamin D3 (Calcium 500-Vit D3 200 Tablet) 1 Each Tablet, 1 TAB PO DAILY, (Reported) Cholecalciferol (Vitamin D3) (Vitamin D3) 1,000 Unit Tablet, 1,000 UNITS PO DAILY, (Reported) Cyclosporine (Restasis) 0.05% Droperette, 1 DROP OU BID, (Reported) Doxycycline Monohydrate (Doxycycline Monohydrate) 50 Mg Tablet, 50 MG PO DAILY, (Reported) Ferrous Sulfate (Ferrous Sulfate) 325 Mg Tablet, 325 MG PO DAILY, (Reported) Gluc Gramajo/Chondro Gramajo A/Vit C/Mn (Glucosamine Chondroitin Tab) 1 Each Tablet, 1 TAB PO DAILY, (Reported) Meclizine HCl (Meclizine HCl) 12.5 Mg Tablet, 12.5 MG PO TID, (Reported) Multivitamins (Thera M Plus Tablet) 1 Each Tablet, 1 TAB PO DAILY, (Reported) [place]-3 Fatty Acids ([place]-3) 1,000 Mg Capsule, 1,000 MG PO DAILY, (Reported) Pantoprazole Sodium (Pantoprazole Sodium) 40 Mg Tablet.dr, 40 MG PO DAILY, (Reported) Simvastatin (Simvastatin) 40 Mg Tablet, 40 MG PO QHS, (Reported) Timolol Maleate (Timolol Maleate) 0.5% 5ML Drops, 1 DROP OU DAILY, (Reported) Allergies Coded Allergies: No Known Allergies (Unverified , 11/17/18) NASRA ALANIS MD Aug 10, 2020 08:34
--- NOTE | 2020-08-10 11:46 | IPNPDOC ---
Text Note Date of Service The patient was seen on 08/10/20. NOTE SUBJECTIVE: -Feels dizzy this noon as we are getting ready to discharge him and he is orthostatic on vitals check. Will hydrate PHYSICAL EXAMINATION: Constitutional: Awake and alert, in no apparent distress, NAD, pale ENT: Sclera are clear. Mucosa is moist. Respiratory: CTAB No respiratory distress. No use of accessory muscles. Breathing comfortably on room air saturating 97% Cardiovascular: Heart rate is regular, holosystolic 2+ systolic murmur at RUSB but can be heard throughout precordium Gastrointestinal: Abdomen is soft, non distended, non tender, BS present. Neurologic: No focal neurological deficit. CN3-12 intact. moving all extremities Mental Status: A&O x3, normal affect Skin: Warm, dry, pale LABORATORY DATA: reviewed Hgb bumped to 10.4 MICROBIOLOGY: Please see below. ASSESSMENT: 80M with a PMHx of COPD, HTN, paroxysmal A fib previously on NoAC, glaucoma, who was recently admitted in 05/2020 for the same with c/f GIB and had a clean EGD/colo without evidence of GIB but notably longstanding smouldering atypical differential on CBC c/f hematologic pathology, not otherwise noted at that time, who now returns to ED for exertional chest pain and dizziness who is being admitted for blood transfusion with plan for referral to hematology and back to cardiology at discharge, with the thought that chest pain is likely resulting from the combination of severe and anemia. Dr. Santiago will see him outpatient for a bone marrow biopsy as it seems he may have myelodysplasia. # Symptomatic anemia: 2/2 hematologic pathology -no iron deficiency per 05/2020 labs, also on iron sulfate -no B12 deficiency per 05/2020 labs -no folate deficiency per 05/2020 labs -No verified history of GIB with recent clean EGD/colo with no evidence of GIB -abnormal CBC differential over a few year now c/f myelodysplasia --> discussed with Dr. Santiago --> will refer to outpatient hematology for bone marrow biopsy -s/p 2u pRBCs #Chest pain i/s/o anemia and severe -EKG was NSR without ischemic changes -troponin was negative -telemetry -Dr. Bryan was called by ED, will refer back to see him as an outpatient -no hx of CAD, with prior clean LHC -05/2020 TTE showed moderate to severe, most likely severe with a mean aortic gradient of 36 mm, aortic valve area 0.9 square cm, mild mitral stenosis, with normal EF and no WMA # Paroxysmal Afib: EKG in NSR. Regular HR on exam. Xarelto was stopped after the anemia admission in 05/2020, was not restarted in the outpatient setting. -Follow-up with cardiology OP. # Hx of COPD: follows with Dr Zavala. -albuterol PRN. -Symbicort scheduled. #symptomatic orthostasis: likely 2/2 dehydration vs. severe -will give fluids and recheck orthostatics -if no improvement --> will get repeat TTE --> may require re-evaluation at which point will repeat TTE that was recently done --> and may have to transfer for TAVR vs. SAVR eval. # DVT prophylaxis: TEDs and SCDs VS,Fishbone, I+O VS, Fishbone, I+O Laboratory Tests 08/10/20 06:32 Vital Signs Date Time Temp Pulse Resp B/P (MAP) Pulse Ox O2 Delivery O2 Flow Rate FiO2 08/10/20 06:00 97.9 82 18 115/67 (83) 94 Room Air 08/09/20 23:05 93.0 I&O- Last 24 Hours up to 6 AM 08/10/20 06:00 Intake Total 2270 ml Output Total 0 ml Balance 2270 ml NASRA ALANIS MD Aug 10, 2020 11:46
[2020-08-10] MEDS: NS 1,000 ML IV SCH ×2 (11:54→18:39)
[2020-08-10] MEDS: SIMVASTATIN 40 MG TAB PO SCH (20:22)
[2020-08-11 06:00] VITALS: BP 104/65
[2020-08-11 06:50] LABS: HEMATOCRIT 32.6 % (42.0-52.0); HEMOGLOBIN 10.5 g/dl (13.5-17.5); MEAN CORPUSCULAR HGB CONC 32.2 g/dl (32.0-36.5); MEAN CORPUSCULAR VOLUME 102.5 fl (80.0-96.0); PLATELET COUNT, AUTOMATED 169 10^3/uL (150-450); RED BLOOD COUNT 3.18 10^6/uL (4.30-6.10)
[2020-08-11 07:05] LABS: BLOOD UREA NITROGEN 13 MG/DL (7-18); CALCIUM LEVEL 8.4 MG/DL (8.8-10.2); CARBON DIOXIDE LEVEL 27 MEQ/L (21-32); CHLORIDE LEVEL 109 MEQ/L (98-107); CREATININE FOR GFR 0.92 MG/DL (0.70-1.30); GLOMERULAR FILTRATION RATE > 60.0 (>35); GLUCOSE, FASTING 86 MG/DL (70-100); SODIUM LEVEL 144 MEQ/L (136-145)
[2020-08-11] MEDS: FERROUS SULFATE 325MG TAB PO SCH (08:54)
[2020-08-11] MEDS: ASCORBIC ACID 500 MG TAB PO SCH (08:55)
[2020-08-11] MEDS: MULTIVITAMINS/MINERALS THERAP 1 TAB PO SCH (08:55)
[2020-08-11] MEDS: OMEGA-3 1000MG CAPSULE PO SCH (08:55)
[2020-08-11] MEDS: MECLIZINE 12.5 MG TAB PO SCH (08:55)
[2020-08-11] MEDS: VITAMIN D 1,000 INTERNATIONAL UNITS TABLET PO SCH (08:55)
[2020-08-11] MEDS: CALCIUM/VITAMIN D 500 MG TAB PO SCH (08:55)
[2020-08-11] MEDS: PANTOPRAZOLE 40MG TAB (PROTONIX) PO SCH (08:55)
[2020-08-11] MEDS: POLYVINYL ALCOHOL OPHTH SOLN 15 ML(LIQUITEARS) OU SCH (08:55)
[2020-08-11] MEDS: TIMOLOL MALEATE 0.5% OPHTH SOLN 5 ML OU SCH (08:56)
--- NOTE | 2020-08-11 12:02 | IPNPDOC ---
Text Note Date of Service The patient was seen on 08/11/20. NOTE SUBJECTIVE: -Tired this morning, wanted to sleep a bit more. Has not been sleeping well since being in the hospital. PHYSICAL EXAMINATION: Constitutional: Awake and alert, in no apparent distress, NAD, pale ENT: Sclera are clear. Mucosa is moist. Respiratory: CTAB No respiratory distress. No use of accessory muscles. Breathing comfortably on room air saturating 97% Cardiovascular: Heart rate is regular, holosystolic 2+ systolic murmur at RUSB but can be heard throughout precordium Gastrointestinal: Abdomen is soft, non distended, non tender, BS present. Neurologic: No focal neurological deficit. CN3-12 intact. moving all extremities Mental Status: A&O x3, normal affect Skin: Warm, dry, pale LABORATORY DATA: reviewed Hgb stable MICROBIOLOGY: Please see below. ASSESSMENT: 80M with a PMHx of COPD, HTN, paroxysmal A fib previously on NoAC, glaucoma, who was recently admitted in 05/2020 for the same with c/f GIB and had a clean EGD/colo without evidence of GIB but notably longstanding smouldering atypical differential on CBC c/f hematologic pathology, not otherwise noted at that time, who now returns to ED for exertional chest pain and dizziness who is being admitted for blood transfusion with plan for referral to hematology and back to cardiology at discharge, with the thought that chest pain is likely resulting from the combination of severe and anemia. Dr. Santiago will see him outpatient for a bone marrow biopsy as it seems he may have myelodysplasia. # Symptomatic anemia: 2/2 hematologic pathology -no iron deficiency per 05/2020 labs, also on iron sulfate -no B12 deficiency per 05/2020 labs -no folate deficiency per 05/2020 labs -No verified history of GIB with recent clean EGD/colo with no evidence of GIB -abnormal CBC differential over a few year now c/f myelodysplasia --> discussed with Dr. Santiago --> will refer to outpatient hematology for bone marrow biopsy -s/p 2u pRBCs #Chest pain i/s/o anemia and severe -EKG was NSR without ischemic changes -troponin was negative -telemetry -Dr. Bryan was called by ED, will refer back to see him as an outpatient -no hx of CAD, with prior clean LHC -05/2020 TTE showed moderate to severe, most likely severe with a mean aortic gradient of 36 mm, aortic valve area 0.9 square cm, mild mitral stenosis, with normal EF and no WMA # Paroxysmal Afib: EKG in NSR. Regular HR on exam. Xarelto was stopped after the anemia admission in 05/2020, was not restarted in the outpatient setting. -Follow-up with cardiology OP. # Hx of COPD: follows with Dr Zavala. -albuterol PRN. -Symbicort scheduled. #symptomatic orthostasis: likely 2/2 dehydration vs. severe -s/p fluids and orthostatics improved -will check orthostatics this AM -PT to do a home safety eval # DVT prophylaxis: TEDs and SCDs Dispo: possibly discharging home today VS,Fishbone, I+O VS, Fishbone, I+O Laboratory Tests 08/11/20 05:27 Vital Signs Date Time Temp Pulse Resp B/P (MAP) Pulse Ox O2 Delivery O2 Flow Rate FiO2 08/11/20 06:00 98.3 113 18 104/65 (78) 96 Room Air 08/09/20 23:05 93.0 I&O- Last 24 Hours up to 6 AM 08/11/20 06:00 Intake Total 1620 ml Output Total 0 ml Balance 1620 ml NASRA ALANIS MD Aug 11, 2020 08:14
[2020-08-16] MEDS ORDERED: NIACCAP PO (14:35)
== END 2020-08-11 13:22 | disposition home or self-care (01) ==
LOC: M ED 10:41 → M ED INP 16:39 → M MSPAV 17:54
PROVIDERS: ADMIT Internal Medicine; ATTEND Internal Medicine
DX: D64.9 Anemia, unspecified (principal); R07.9 Chest pain, unspecified; R42 Dizziness and giddiness; R53.1 Weakness; I35.0 Nonrheumatic aortic (valve) stenosis; I10 Essential (primary) hypertension; K21.9 Gastro-esophageal reflux disease without esophagitis; J44.9 Chronic obstructive pulmonary disease, unspecified; I48.0 Paroxysmal atrial fibrillation; Z79.899 Other long term (current) drug therapy; Z87.891 Personal history of nicotine dependence; H25.9 Unspecified age-related cataract
CPT/HCPCS: 36415; 36430; 71045; 80048; 84484; 85025; 85027; 86850; 86900; 86901; 86920; 87631; 93005; 93041; 94760; 96360; 96361; 97116; 97161; 99285; G0378; P9016

== ENCOUNTER → 2020-08-16 | Outpatient (CLI) | payer MEDICARE ==
[~2020-08-16] MED LIST changes: +FERR1TAB8 PO; +NIACCAP PO; +PANT40TA29 PO
--- NOTE | 2020-08-16 09:40 | REP ---
INDICATION: SOB, PLEURITIC CHEST PAIN COMPARISON: 08/09/2020 TECHNIQUE: PA and lateral. FINDINGS: The mediastinum and cardiac silhouette are normal. The lung pearl demonstrate chronic appearing changes without acute consolidation, effusion, or pneumothorax. The skeletal structures are intact and normal. IMPRESSION: No focal consolidation or effusion. <Electronically signed by Jaleel Hough > 08/16/20 0937
== END ==
LOC: M WUC 09:18
PROVIDERS: ATTEND Physician Assistant
DX: R07.9 Chest pain, unspecified (principal)

== ENCOUNTER 2020-09-02 16:28 | Observation (INO) | payer MEDICARE ==
[~2020-09-02] VITALS: Ht 177.8 cm; Wt 69.7 kg
--- OUTSIDE RECORDS SUMMARY | 2020-09-02 16:33 | CCD | Summary of Care ---
Author Author [facility] Address Unknown Phone Unavailable Care Team Providers Care Residential Field Manager Name Role Phone PCP Unavailable Encounter Details Care Team Description Date Type Department 08/29/2020 [facility] Clinical Encounter Pathology at [address] [address] Allergies Not on Filedocumented as of this encounter (statuses as of 08/30/2020) Medications Not on filedocumented as of this encounter (statuses as of 08/30/2020) Active Problems Not on filedocumented as of this encounter (statuses as of 08/30/2020) Social History Date Tobacco Use Types Packs/Day Years Used Never Assessed Sex Assigned at Date Recorded Not on file documented as of this encounter Last Filed Vital Signs Not on filedocumented in this encounter Plan of Treatment Date/Time Name Type Priority Associated Diag noses 08/29/2020 2:25 PM EST Cytogenetics Oncology, Pathology and Routine Blood and Bone Marrow Cytology 08/29/2020 2:25 PM EST Hematopathology Pathology and Routine Cytology Order Schedule Name Type Priority Associated Diag noses Once for 1 Occurrences starting 08/29/19 21 until 08/29/2020 Cytogenetics Oncology, Pathology and Routine Blood and Bone Marrow Cytology Once for 1 Occurrences starting 08/29/19 21 until 08/29/2020 Hematopathology Pathology and Routine Cytology Health Maintenance Due Date Last Done Comments MMR Vaccines (1 of 1 - 1941 Standard series) Varicella Vaccines (1 of 1941 2 - 2-dose childhood series) DTaP,Tdap,and Td Vaccines 1945 (1 - Tdap) Zoster Vaccines (1 of 2) 1988 Pneumococcal Vaccine: 65+ 2003 Years (1 of 1 - PPSV23) Influenza Vaccine 04/19/2020 HIB Vaccines Aged Out No longer eligible based on patient's age to complete this topic Hepatitis A Vaccines Aged Out No longer eligibl e based on patient's age to complete this topic Hepatitis B Vaccines Aged Out No longer eligibl e based on patient's age to complete this topic IPV Vaccines Aged Out No longer eligible based on patient's age to complete this topic Pneumococcal Vaccine: Aged Out No longer eligib le based on patient's age to Pediatrics (0 to 5 Years) complete this topic and At-Risk Patients (6 to 64 Years) documented as of this encounter Results Not on filedocumented in this encounter
--- OUTSIDE RECORDS SUMMARY | 2020-09-02 16:33 | CCD ---
Author Author [facility] Organization [facility] Address Unknown Phone Unavailable Care Team Providers Care Tow Motor Driver Name Role Phone Perez, L Leonila PA [...] Unavailable Perez, L Leonila PA Unavailable Unavailable SAI, DORA PA Unavailable [...] Unavailable Unavailable SAI, DORA PA Unavailable Unavailable Stockton, N Alfred BROOMCORN THRESHER Unavailable Unavailable Stockton, N Alfred BROOMCORN THRESHER Unavailable Unavailable Stockton, N Alfred BROOMCORN THRESHER Unavailable Unavailable Mae, N Alfred BROOMCORN THRESHER Unavailable Unavailable Stockton, N Alfred BROOMCORN THRESHER Unavailable Unavailable Ame, N Alfred BROOMCORN THRESHER Unavailable Unavailable Stockton, N Alfred BROOMCORN THRESHER Unavailable Unavailable Stockton, N Alfred BROOMCORN THRESHER Unavailable Unavailable Mae, N Alfred BROOMCORN THRESHER Unavailable Unavailable Mae, N Alfred BROOMCORN THRESHER Unavailable Unavailable Stockton, N Alfred BROOMCORN THRESHER Unavailable Unavailable Mae, N Alfred BROOMCORN THRESHER Unavailable Unavailable Mae, N Alfred BROOMCORN THRESHER Unavailable Unavailable Stockton, N Alfred BROOMCORN THRESHER Unavailable Unavailable Stockton, N Alfred BROOMCORN THRESHER Unavailable Unavailable Mae, N Alfred BROOMCORN THRESHER Unavailable Unavailable Mae, N Alfred BROOMCORN THRESHER Unavailable Unavailable Stockton, N Alfred BROOMCORN THRESHER Unavailable Unavailable Stockton, N Alfred BROOMCORN THRESHER Unavailable Unavailable Mae, N Alfred BROOMCORN THRESHER Unavailable Unavailable Stockton, N Alfred BROOMCORN THRESHER Unavailable Unavailable Mae, N Alfred BROOMCORN THRESHER Unavailable Unavailable Stockton, N Alfred BROOMCORN THRESHER Unavailable Unavailable Stockton, N Alfred BROOMCORN THRESHER Unavailable Unavailable Stockton, N Alfred BROOMCORN THRESHER Unavailable Unavailable Mae, N Alfred BROOMCORN THRESHER Unavailable Unavailable Mae, N Alfred BROOMCORN THRESHER Unavailable Unavailable Stockton, N Alfred BROOMCORN THRESHER Unavailable Unavailable Mae, N Alfred BROOMCORN THRESHER Unavailable Unavailable Mae, N Alfred BROOMCORN THRESHER Unavailable Unavailable Stockton, N Alfred BROOMCORN THRESHER Unavailable Unavailable Jose, G Anita Unavailable Unavailable Maring, Dontae PA Unavailable Unavailable [...] is protected by Article 27-F of the [facility] Public Health law. If you continue you may have access to information: Regarding HIV / AIDS; Provided by facilities licensed or operated by the [facility] Office of Mental Health; or Provided by the [facility] Office for People With Developmental Disabilities. If such information is present, then the following [facility] mandated warning applies: This information has been [...] law may result in a fine or residential sentence or both. A general authorization for the release of medical or other information is NOT sufficient authorization for further disc losure. Family History Family Member Name Family Member Gender Family Member Status Date o f Status Description Data Source(s) Unknown Female Problem MEDENT ([facility] () Unknown Unknown Problem [facility] ([facility] Unknown Male Problem [facility] ([facility]) Unknown Male Problem MED[facility] ([facility]) Unknown Male Problem MED[facility] ([facility]) Encounters Encounter Providers Location Date Indications Data Source(s ) Outpatient Admitter: Anita Courtneyerrer: Anita Garcia 08/29/2020 12:00:00 AM EST Nutritional anemia, unspecified [facility] Nutritional anemia, unspecified Outpatient Attender: Leonila SMITH-SJSaeidWINNIE 12:00:00 AM EST [facility] O Attender: Dontae TAVAREZ 08/09/19 21 09:28:44 AM EST - 08/09/2020 10:26:27 AM EST [facility]uTap ([facility] ) Outpatient Attender: Leonila SMITH-SJPChesterWINNIE 12:00:00 AM EST - 06/13/2020 02:44:23 PM EST [facility] Outpatient Attender: Alfred SMITH-WINNIE 020 12:00:00 AM EDT - 01/03/2020 10:55:40 AM EDT [facility] Outpatient Attender: DORA villalpando 08/29/2019 07:20:00 AM EST [facility] ([facility] Outpatient Attender: Alfred Wall NPReferrer: Alfred Wall BROOMCORN THRESHER SJP.WINNIE-SJP 08/16/2019 11:14:09 AM EST - 08/16/2019 11:58:02 AM EST [facility] Medications Medication Brand Name Start Date Product Form Dose Route Admi nistrative Instructions Pharmacy Instructions Status Indications Reaction Description Data Source(s) Simvastatin 40 MG Oral Tablet simvastatin (ZOCOR) 40 M G tablet simvastatin (ZOCOR) 40 MG tablet 06/28/2020 12:00:00 AM EST active Take 1 tablet by mouth once daily [facility] Betamethasone 0.5 MG/ML Topical Cream be tamethasone dipropionate (DIPROLENE) 0.05 % cream betamethasone dipropionate (DIPROLENE) 0.05 % cream 12:00:00 AM EST active APPLY AT BEDTIME TO GROIN AREA [facility] pantoprazole 40 MG Delayed Release Oral Tablet pantoprazole (PROTONIX) 40 MG tablet pantoprazole (PROTONIX) 40 MG tablet 06/05/2020 12:00:00 AM EST 40 mg Oral active Take 40 mg by mouth daily [facility] Doxycycline Monohydrate 50 MG Oral Tablet doxycycline (ADOXA) 50 MG tablet doxycycline (ADOXA) 50 MG tablet 05/08/2020 12:00:00 AM EDT 50 mg Oral active Take 50 mg by mouth daily [facility] Simvastatin 40 MG Oral Tablet simvastatin (ZOCOR) 40 M G tablet simvastatin (ZOCOR) 40 MG tablet 03/16/2020 12:00:00 AM EDT 40 mg Oral active Take 1 tablet (40 mg total) by mouth daily [facility] Cyclosporine 0.5 MG/ML Ophthalmic Suspen akila [Restasis] RESTASIS 0.05 % ophthalmic emulsion RESTASIS 0.05 % ophthalmic emulsion 12/13/2019 12:00:0 0 AM EDT active as needed [facility] rivaroxaban 20 MG Oral Tablet rivaroxaban (XARELTO) 20 MG TABS rivaroxaban (XARELTO) 20 MG TABS 10/16/2019 12:00:00 AM EDT 20 mg Oral aborted Take 1 tablet (20 mg total) by mouth daily [facility] Doxycycline Monohydrate 100 MG Oral Capsule Doxycycline [place] hydrate 09/17/2019 12:00:00 AM EST ORAL active M [facility] Insurance Providers Payer name Policy type / Coverage type Policy ID Covered democrat ID Covered democrat's relationship to piper Policy Piper Plan Information WELLCARE [id number] SP [id number] [facility] HMO G [id number] Self [id number] WELLCARE MEDICARE [id number] WELLCARE MEDICARE [id number] Valorie 07 [id number] [facility] 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 [id number] Valorie f [id number] MEDICARE [id number] SP [id number] WELLCARE O [id number] S [id number] [facility] NF O [id number] S [id number] [place] [id number] SP [id number] [place] INS WORKER COMP [id number] SP [id number] [facility] [id number] SP [id number] WELLCARE [id number] SP [id number] Today's Option Commercial [id number] Self [id number] TODAYS OPTIONS [id number] SP [id number] MEDICARE C [id number] S [id number] TODAYS OPTIONS/CYMRAES O [id number] S [id number] O UNAVAILABLE UNAVAILA BLE AARP O [id number] S [id number] Today's Option Commercial [id number] Self [id number] Today's Option Commercial [id number] Self [id number] Today's Option Commercial [id number] Self [id number] MEDICARE C [id number] S [id number] A EMPIRE ALL [facility] O [id number] S [id number] [employer] FINANCIAL NO-FAULT [id number] SP [id number] AAR HEALTH CARE OPTIONS [id number] SP [id number] MEDICARE [id number] SP [id number] A AARP [place] [id number] SP [id number] [place] [employer] ([place]) Workers Compensation [id number] Self [id number] Todays Options Medigap Part B [id number] Self [id number] Aarp Healthcare Options Medigap Part B [id number] Self [id number] Medicare Dme Supplies Medigap Part B [id number] Self [id number] Medicare [facility] Medicare Primary [id number] Self [id number] Today's Options Medicare Commercial [id number] Self [id number] Aarp Medigap Part B [id number] Self [id number] [place] [facility] Medicare Primary [id number] Self [id number] Medicare Dme Supplies Medigap Part B Self Todays Options Medigap Part B Self Aarp Healthcare Options Medigap Part B Self Medicare [facility] Medicare Primary Self AARP HEALTH CARE OPTIONS [id number] SP [id number] SECURITY MUTUAL INS CO CLAIM #[id number] [id number] CLAIM [id number] SECURITY MUTUAL [id number] MO2 [id number] SECURITY MUTUAL CLIAM#[id number] [id number] CLIAM#[id number] SELF PAY UNAVAILABLE SP UNAVAILA BLE MEDICARE [id number] SP [id number] A TODAYS OPTIONS [id number] SP [id number] TODAYS OPTIONS/CYMRAES P [id number] S [id number] Problems, Conditions, and Diagnoses Code Display Name Description Problem Type Effective Dates Data Source(s) R07.89 Chest discomfort Chest discomfort [id number] 08/15/2020 12 :00:00 AM [facility] D53.9 Nutritional anemia, unspecified Nutritional anemia, un specified Diagnosis 08/29/2020 11:47:00 AM [facility] I48.0 Paroxysmal atrial fibrillation Paroxysmal atrial fibri llation Diagnosis 08/15/2020 11:04:28 AM [facility] I35.0 Nonrheumatic aortic (valve) stenosis Nonrheumati c aortic (valve) stenosis Diagnosis 08/15/2020 11:04:28 AM [facility] E78.5 Hyperlipidemia, unspecified Hyperlipidemia, unspecifie d Diagnosis 08/15/2020 11:04:28 AM [facility] 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 Occlusion and stenosis of bilateral lowery Diagnosis 08/15/2020 11:04:28 AM EST [facility] D64.9 Anemia, unspecified Anemia, unspecified Diagnosis 1 08/13/2019 01:28:08 PM EST [facility] Surgeries/Procedures Procedure Description Date Indications Data Source(s) BLOOD COUNT COMPLETE AUTO&AUTO DIFRNTL WBC COUNT CBC DIFF Routine 08/15/2020 3:13 PM EST Paroxysmal atrial fibrillation 08/15/2020 08:13:00 PM EST Pa roxysmal atrial fibrillation [facility] Paroxysmal atrial fibrillation BASIC METABOLIC PANEL CALCIUM TOTAL BASIC METABOLIC PANEL Routi ne 08/15/2020 3:13 PM EST Paroxysmal atrial fibrillation 08/15/2020 08:13:00 PM EST Pa roxysmal atrial fibrillation [facility] Paroxysmal atrial fibrillation ECG ROUTINE ECG W/LEAST 12 LDS W/I&R POCT AMB EKG Routine 08/15/2020 1:22 PM EST Paroxysmal atrial fibrillation Chest pain, unspecified type 08/15/2020 06:22:00 PM EST [place] pain, unspecified typeParoxysmal atrial fibrillation [facility] Chest pain, unspecified type Paroxysmal atrial fibrillation ECG ROUTINE ECG W/LEAST 12 LDS W/I&R POCT AMB EKG Routine 06/15/2020 9:30 AM EST Paroxysmal atrial fibrillation 06/15/2020 02:30:00 PM EST Pa roxysmal atrial fibrillation [facility] Paroxysmal atrial fibrillation DEBRIDEMENT NAIL ANY METHOD 05/24/2020 12:00:00 AM EST [facility] ([facility] Spirometry 05/14/2020 12:00:00 AM EDT M EDENT ([facility], ) PARING/CUTTING BENIGN HYPERKERATOTIC LESION 2-4 2019 12:00:00 AM EDT MED[facility] ([facility] DEBRIDEMENT NAIL ANY METHOD 01/19/2020 12:00:00 AM EDT MED[facility] ([facility] PARING/CUTTING BENIGN HYPERKERATOTIC LESION 2-4 2019 12:00:00 AM EST [facility] ([facility] DEBRIDEMENT NAIL ANY METHOD 6/> 08/11/2019 12:00:00 AM EST MED[facility] ([facility] ARTHROCENTESIS ASPIR&/INJECTION MAJOR JT/BURSA 019 12:00:00 AM EST MED[facility] ([facility]) Results ID Date Data Source [id number] 08/30/2020 03:41:00 PM EST [facility] Hematopathology ReportName: ELBA GALEASMRN: [id number] Number: [id number] Date: 08/29/2020 00:00Received Date: 08/29/2020 14:25Physician(s): ANITA GARCIA MD VYAS, SHIKHAR G[facility] [place] [facility]) ReceivedA: Bone Marrow, Flow Cytometry; Received 1 green top BM, 2 aspiratesmears, and 1 PB smearClinical HistoryMacrocytic anemia, rule out MDS.TEST REQUESTED/PERFORMED: Flow cytometry analysis DiagnosisFlow cytometry of bone marrow: Mildly abnormal phenotype of myeloidprecursors, suggestive of dysplasia. 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 Barbie Velazquez MD ; Hematopathology FellowElectronically Signed By Veena Mckeon M.D. Attending Pathologist 08/30/2020 15:41:12The attending pathologist named above attests that he/she has personallyreviewed the relevant preparation(s) for the specimen(s) and rendered thefinal diagnosis. ProceduresFlow Cytometry Date Ordered:08/29/2020 Status: Signed Out08/31/2020 InterpretationPERIPHERAL BLOOD: CBC performed at [facility] (08/29/20) WBC 7.6 K/uLRBC *2.93 M/uLHgb *9.8 g/dLHct *31.5 %MCV *107.5 fLMCH *33.4 pgMCHC *31.1 g/dLRDW *21.0 %Platelets 180 K/ulDifferential Count (100 cells): 1 % Promyelocytes 3 % N. Myelocytes 4 % N. Metamyelocytes 3 % N. Band Forms40 % Neutrophils 2 % Eosinophils 4 % Mhzuvoquk69 % Rsazbfklfpi91 % Monocytes-------100 % BONE MARROW ASPIRATE:Differential Count (100 cells):11 % Erythroid Precursors 1 % Blasts 9 % Oboqunyngersg32 % N. Zbdobclgsh54 % N. Metamyelocytes and Band Forms 8 % Neutrophils 1 % Plasma Cells--------100 % Morphology: Myelocytes show decreased granularity and residualcytoplasmic basophilia. Rare erythroid presursors have lobated nuclei.MDS PanelThe following markers were assayed: CD45 (gate), CD7, CD10, CD11b, CD13,CD14, CD16, CD33, CD34, CD56, CD64, CD71, CD117, and glycophorin A.#events: [id number]: 94%Flow Cytometry Differential (CD45/SSC):Lymphocyte [place]: 2%CD34/CD117 Blast [place]: 0.9%Monocyte [place]: 2%Granulocyte [place]: 92%NRBC [place]: 3% MDS PanelAntibody Population Patient NormalOrthogonal LightScatter Neutrophils High VgvkXP64 Granulocytes Moderate LvcqjtxdNX52 Granulocytes Present PwihoxzPB06 Granulocytes Absent KjoxwkTJ03/CD14 Monocytes Absent MipnaaOZ87/CD117 Blasts Not Increased Not IncreasedCD7 CD34+ Blasts Absent EifswgLU54 Maturing Granulocytes Present FxjujjcUK34 Maturing Granulocytes Present MojgrwmRP70/CD13 Pattern Myeloid Cells Slightly AbnormalPattern Normal XjutshdUV60/CD11b Pattern Myeloid Cells Slightly AbnormalPattern Normal YbrbfolSS29/Glycophorin A Glycophorin+ Red Cells High HighLymphoid Panel: The following markers were assayed: CD45 (gate), CD2, CD3, CD4, CD5, CD7,CD8, CD10, CD19, CD20, CD38, CD56, CD57, Corinth, and Lambda.#events: [id number]: 98%Flow Cytometry Differential (CD45/SSC)Lymphocyte [place]: 2%CD45 dim [place]: 0%Monocyte [place]: 2%Granulocyte [place]: 89%Nucleated/Erythroid [place]: 4%The lymphocyte gate showsB-cells (CD19): 4%T-cells (CD3): 77%NK-cells (CD3-/CD56+): 14%Corinth/Lambda Ratio: 1.1CD4/CD8 Ratio: 1.0Results: (expressed as % of lymphocyte gate)T-cell Markers: CD2 = 88, CD3 = 77, CD3/CD4 = 40, CD3/CD8 = 41, CD5 = 74,CD7 = 85, CD3/57 = 15B-cell markers: Corinth = 2, Lambda = 1, CD19 = 4, CD20 = 4, CD19/10 = 1,CD19/CD5 = 0, CD38/CD20 = 4Light chain as % of B-Cells: CD19/Corinth = 33, CD19/Lambda = 31,CD19/CD5/Corinth = 3, CD19/CD5/Lambda = 0, CD19/CD10/Corinth = 0,CD19/CD10/Lambda = 0NK cell Markers: CD56 = 15, CD57 = 19Other Markers: CD10 = 3, CD38 = 63Results-CommentsLymphocytes consist predominantly of T cells with normal expression of panT-cell markers and a normal CD4/CD8 ratio, normal proportions of NK andcytotoxic T cells, and polyclonal B cellsThe MDS panel shows slightly abnormal maturation pattern of CD16/CD13 andCD16/CD11b expression. The light scatter properties and phenotype ofmyelomonocytic precursors are normal. Blasts are not increased.Glycophorin positive erythroid precursors show normal coexpression ofCD71. Procedure Electronically Signed By:Veena Mckeon M.D.08/31/2020mendments for Flow Cytometry (08/29/2020)Amended: 08/31/2020 by Shakila Mack: Typographical Error See Differential Count. Correcton is highlightedPrevious Signout Date: 08/30/2020 This report may include one or more immunohistochemical stain/fluorochromeconjugated monoclonal antibody results that use analyte specific reagents.All positive and negative controls have been reviewed by the attendingpathologist and are satisfactory. The tests were developed and theirperformance characteristics determined by [facility] Pathology department.They have not been cleared or approved by the US Food and DrugAdministration. The FDA has determined that such clearance or approval isnot necessary. Name Value Range Interpretation Code Description Data Zoila rce(s) Supporting Document(s) ID Date Data Source [id number] 08/09/2020 02:15:00 PM EST [facility] Name Value Range Interpretation Code Description Data Zoila rce(s) Supporting Document(s) SARS coronavirus 2 RNA [Presence] in Res piratory specimen by GREGORY with probe detection NEGATIVE [facility] This lab was ordered by [facility] a nd reported by [facility]. ID Date Data Source [id number] 07/17/2020 12:00:00 AM EST [facility] Olaf Zavala MD Patient Name: VENUS GALEAS [id number] [facility] Date of : 1940[place] Date of Exam: 07/17/2020NovaCARLOS ALBERTO cordon [id number]#: Fax: [phone] EXAM: CT THORAX WITHOUT CONTRASTCLINICAL [...] followup of such lung fieldabnormalities.Accredited by the [employer] in [place].QUIN Mulligan/Roberto you for referring VENUS GALEAS to our office. Electronically Signed - DIDIER MUSA DO 07/17/20 17:04 Name Value Range Interpretation Code Description Data Zoila rce(s) Supporting Document(s) ID Date Data Source [id number] 05/21/2020 12:00:00 AM EST [facility] Olaf Zavala MD Patient Name: VENUS [id number] [facility] Date of : 1940[place] Date of Exam: 05/21/2020CARLOS ALBERTO Barnard [id number]#: Fax: [phone] EXAM: CHEST (2 VIEW) X-RAYCLINICAL [...] rce(s) Supporting Document(s) ID Date Data Source [id number] 08/16/2019 06:32:29 PM EST [facility] Name Value Range Interpretation Code Description Data Zoila rce(s) Supporting Document(s) &PDF [facility] VALMAm0oYjJCGhRm38/MKDxcYNTvb2VtBQlwAAy0MZccHUReE0AeoZkxGFfTV5eQTyHoAt8OSSPBBUxt vci [file] ICAgICAgICAgICAgICAgICAgICAgICAgICAgICAgICAgICAgICAgICAgICAgICAgICAgICAgICAgICAg ICAgICAgICAgICAgICAgICAgICAgICAgICAgICAgIC ANCiAgICAgICAgICAgICAgICAgICAgICAgICAgICAgICAgICAgICAgICAgICAgICAgICAgICAgICAgIC AgICAgICAgICAgICAgICAgICAgICAgICAgICAgICAgICAgICAgICAgICANCiAgICAgICAgICAgICAgIC AgICAgICAgICAgICAgICAgICAgICAgICAgICAgICAg ICAgICAgICAgICAgICAgICAgICAgICAgICAgICAgICAgICAgICAgICAgICAgICAgICAgICANCiAgICAg ICAgICAgICAgICAgICAgICAgICAgICAgICAgICAgICAgICAgICAgICAgICAgICAgICAgICAgICAgICAg ICAgICAgICAgICAgICAgICAgICAgICAgICAgICAgIC AgICANCiAgICAgICAgICAgICAgICAgICAgICAgICAgICAgICAgICAgICAgICAgICAgICAgICAgICAgIC AgICAgICAgICAgICAgICAgICAgICAgICAgICAgICAgICAgICAgICAgICAgICANCiAgICAgICAgICAgIC AgICAgICAgICAgICAgICAgICAgICAgICAgICAgICAg ICAgICAgICAgICAgICAgICAgICAgICAgICAgICAgICAgICAgICAgICAgICAgICAgICAgICAgICANCiAg ICAgICAgICAgICAgICAgICAgICAgICAgICAgICAgICAgICAgICAgICAgICAgICAgICAgICAgICAgICAg ICAgICAgICAgICAgICAgICAgICAgICAgICAgICAgIC AgICAgICANCiAgICAgICAgICAgICAgICAgICAgICAgICAgICAgICAgICAgICAgICAgICAgICAgICAgIC AgICAgICAgICAgICAgICAgICAgICAgICAgICAgICAgICAgICAgICAgICAgICAgICANCiAgICAgICAgIC AgICAgICAgICAgICAgICAgICAgICAgICAgICAgICAg ICAgICAgICAgICAgICAgICAgICAgICAgICAgICAgICAgICAgICAgICAgICAgICAgICAgICAgICAgICAN CiAgICAgICAgICAgICAgICAgICAgICAgICAgICAgICAgICAgICAgICAgICAgICAgICAgICAgICAgICAg ICAgICAgICAgICAgICAgICAgICAgICAgICAgICAgIC AgICAgICAgICANCjw/eMKhK5tdjWXeswH0Y4kvBy2FNu9FRC4vu1XhCLNjMNuongJcIvlJJtUhVMUgKm iJDqf1LUzjFH2PpYFqF8TuJ7YhBGfzCP1AZQZfLMCrvWLiSFWsWLSoHtU9WIIuUMrvOL4QiFKhRYohZY TbEYIeHfWkYPPtGF4SJHSqV928igAfNv0AAi3QOkIc BW2tqg0MHlDkVDKxVpuDZmt8BSkhCH2YiZScC7CceTKwh5uXKgWjK1UQLNE9GJFqQh0DTZZrVsXoVTIg HUveMP9bMRXhXRYKeGiypfP1BV1OQE6zivOeYM1JIdWvBo6dEq6AVqHiQ3EdU2OzZUSeXWSKNWyrMW9L TZLjBDG4DLQoCNWfVUGFNdPgZ43ySI2FI3Ivb63tTy H6DYTaFzDbEWomPU40dWewbeTnjISdoCmoIV9ZSj9+DQplbmRvYmoNCnhyZWYNCjAgMjINCjAwMDAwMD YkHUEfJtL1CwXbFq5WZFKjLTBqLVZaNbPqSXRhXDDkTSqkGMOvSPD3QQUyEQSvFRHhYL6CTbMsZAWtQp L5ICvvYRRoWUJvwl7YRUBeLDDgDET7HgYmSIUiSOBs NWxsPRSmWPVbDjqjRTKqZRKwYT8GIoSlGKMoUKX4IvRpAWGeRAYzvs6HTTSuYQOaFrC7MEXwABHaXDSc QSznSLYgVFK7Bmt7PZRdEREmVD2RZtVaWGHjBYoeXWafICSgAVXbyh5VVKLoCQTjKhH7PLOfSFKxHJCw PDgzGNOqHAX8GhR1KCZwFCFoMR7PWnThKELzYEd4FX ZpBPEsAOUkhn3EJWPiPXDqOOkwKNSfBMTyKJJaPOoaCTXdIHX7QIa1AXNyKEJrIS5MBpPnXCCeRRl8QX CeWIOlBIVyox0ENJDcKFBaFEW6VwFkWOZdHTTkCWxuNFNqXXCzNeH6RXWtGWQkBX4YEmRiVYUuMQLvWj OnQLDpRXWsfp4RKRWvLWJsYMZtMATfZDHbGEDuVFph ALLuVCJ3AXL2QCJxRCYzUY9WTjDfRLIoSiW9KRMfTTUaTMRjqk5WxWFtdUxovy6THGoVQd1XhGiqSDJj AKcuGw5muAZdXBKtLOMCOd3EweBaCKGcDXFUMSigWOAeASvfUfdcPRBjFeYlYFibL4VnEFPaCRVuMQJ6 LgWgMNU4FiB4GIF9QONfSQN0X0L9HXTgFPO4LoElQE F9HiXyJ6P3Har+AU5sMAg+Yt7Io9YbsmS6czRjLUmoDNPtAU8XYZGPV9HKZc== Procedure Social History Code Duration Value Status Description Data Source(s ) Alcohol intake 06/15/2020 12:00:00 AM EST Never completed [facility] Smoking 06/15/2020 12:00:00 AM EST Former smoker completed Former smoker [facility] Smoking 05/14/2020 12:00:00 AM EDT Non Smoker completed Non Smoke r MEDENT ([facility], ) Vital Signs ID Date Data Source UNK Name Value Range Interpretation Code Description Data Source(s) Oxygen saturation in Arterial blood by Pulse oximetry 92 % 92 % [facility] Body mass index (BMI) [Ratio] 22.53 kg/m2 22.53 kg/m2 [facility] Body weight 71.215 kg 71.215 kg [facility] Body height 177.8 cm 177.8 cm [facility] Heart rate 78 /min 78 /min [facility] Diastolic blood pressure 60 mm[Hg] 60 mm[Hg] [facility] Systolic blood pressure 124 mm[Hg] 124 mm[Hg] [facility] Diastolic blood pressure 52 mm[Hg] 52 mm[Hg] [facility] Systolic blood pressure 110 mm[Hg] 110 mm[Hg] [facility] Oxygen saturation in Arterial blood by Pulse oximetry 96 % 96 % [facility] Body mass index (BMI) [Ratio] 22.38 kg/m2 22.38 kg/m2 [facility] Body weight 70.761 kg 70.761 kg [facility] Body height 177.8 cm 177.8 cm [facility] Heart rate 73 /min 73 /min [facility] Body weight 72.576 kg 72.576 kg [facility] [place] body weight 166 [lb_av] 166 [lb_av] MEDEN T ([facility], ) Body mass index (BMI) [Ratio] 23.0 kg/m2 23.0 k g/m2 MEDENT ([facility], ) Body weight 160.00 [lb_av] 160.00 [lb_av] MEDEN T ([facility], ) Body height 70 [in_i] 70 [in_i] [facility], [facility] 5'10" Oxygen saturation in Arterial blood by Pulse oximetry 97 % 97 % [facility] ([facility]) Room Air Heart rate 73 /min 73 /min [facility] ([facility]) Diastolic blood pressure 64 mm[Hg] 64 mm[Hg] [facility] ([facility]) Systolic blood pressure 118 mm[Hg] 118 mm[Hg] [facility] Body mass index (BMI) [Ratio] 22.2 kg/m2 22.2 k g/m2 [facility]) Body height 70 [in_i] 70 [in_i] [facility] ([facility]) 5'10" Body weight 155.00 [lb_av] 155.00 [lb_av] MEDEN T ([facility], [facility]) Body temperature 97.2 [degF] 97.2 [degF] [facility] [facility], [facility]) Oxygen saturation in Arterial blood by Pulse oximetry 98 % 98 % [facility]) Respiratory rate 18 /min 18 /min [facility] ( [facility], [facility]) Heart [facility] 58 /min 58 /min [facility] ([facility], [facility]) Diastolic blood pressure 67 mm[Hg] 67 mm[Hg] [facility] ([facility], [facility]) Systolic blood pressure 111 mm[Hg] 111 mm[Hg] [facility], [facility] Body mass index (BMI) [Ratio] 22.2 kg/m2 22.2 k g/m2 [facility]) Body height 70 [in_i] 70 [in_i] [facility] ([facility], [facility]) 5'10" Body weight 155.00 [lb_av] 155.00 [lb_av] [facility] T ([facility], [facility]) Body temperature 98.2 [degF] 98.2 [degF] [facility] ([facility], [facility]) Respiratory rate 18 /min 18 /min [facility] ( [place] [facility], [facility]) Heart rate 68 /min 68 /min [facility] ([facility], [facility]) Diastolic blood pressure 80 mm[Hg] 80 mm[Hg] [facility] ([place] [facility], [facility]) Systolic blood pressure 134 mm[Hg] 134 mm[Hg] M EDENT ([facility], [facility]) Patient Treatment Plan of Care Planned Activity Planned Date Details Description Data Source (s) Simvastatin 40 MG Oral Tablet 06/28/2020 12:00:00 AM EST [facility] Betamethasone 0.5 MG/ML Topical Cream 06/20/2020 12:00:00 AM EST [facility] pantoprazole 40 MG Delayed Release Oral Tablet 06/05/2020 12:00:00 AM EST [facility] Doxycycline Monohydrate 50 MG Oral Tablet 05/08/2020 12:00:00 AM ED T [facility] Simvastatin 40 MG Oral Tablet 03/16/2020 12:00:00 AM EDT [facility] Cyclosporine 0.5 MG/ML Ophthalmic Suspension [Restasis ] 12/13/2019 12:00:00 AM EDT [facility] rivaroxaban 20 MG Oral Tablet 10/16/2019 12:00:00 AM EDT [facility]
--- OUTSIDE RECORDS SUMMARY | 2020-09-02 16:53 | CCD ---
Author Author [facility] Organization [facility] Address Unknown Phone Unavailable Care Team Providers Care School Guard Name Role Phone Perez, L Leonila PA [...] Unavailable Unavailable SAI, DORA PA Unavailable Unavailable [place], N Alfred WAREHOUSE ADMINISTRATOR Unavailable Unavailable [place], N Alfred WAREHOUSE ADMINISTRATOR Unavailable Unavailable [place], N Alfred WAREHOUSE ADMINISTRATOR Unavailable Unavailable Mae, N Alfred WAREHOUSE ADMINISTRATOR Unavailable Unavailable [place], N Alfred WAREHOUSE ADMINISTRATOR Unavailable Unavailable Mae, N Alfred WAREHOUSE ADMINISTRATOR Unavailable Unavailable [place], N Alfred WAREHOUSE ADMINISTRATOR Unavailable Unavailable [place], N Alfred WAREHOUSE ADMINISTRATOR Unavailable Unavailable Mae, N Alfred WAREHOUSE ADMINISTRATOR Unavailable Unavailable Mae, N Alfred WAREHOUSE ADMINISTRATOR Unavailable Unavailable [place], N Alfred WAREHOUSE ADMINISTRATOR Unavailable Unavailable Mae, N Alfred WAREHOUSE ADMINISTRATOR Unavailable Unavailable Mae, N Alfred WAREHOUSE ADMINISTRATOR Unavailable Unavailable [place], N Alfred WAREHOUSE ADMINISTRATOR Unavailable Unavailable [place], N Alfred WAREHOUSE ADMINISTRATOR Unavailable Unavailable Mae, N Alfred WAREHOUSE ADMINISTRATOR Unavailable Unavailable Mae, N Alfred WAREHOUSE ADMINISTRATOR Unavailable Unavailable [place], N Alfred WAREHOUSE ADMINISTRATOR Unavailable Unavailable [place], N Alfred WAREHOUSE ADMINISTRATOR Unavailable Unavailable Mae, N Alfred WAREHOUSE ADMINISTRATOR Unavailable Unavailable [place], N Alfred WAREHOUSE ADMINISTRATOR Unavailable Unavailable Mae, N Alfred WAREHOUSE ADMINISTRATOR Unavailable Unavailable [place], N Alfred WAREHOUSE ADMINISTRATOR Unavailable Unavailable [place], N Alfred WAREHOUSE ADMINISTRATOR Unavailable Unavailable [place], N Alfred WAREHOUSE ADMINISTRATOR Unavailable Unavailable Mae, N Alfred WAREHOUSE ADMINISTRATOR Unavailable Unavailable Mae, N Alfred WAREHOUSE ADMINISTRATOR Unavailable Unavailable [place], N Alfred WAREHOUSE ADMINISTRATOR Unavailable Unavailable Mae, N Alfred WAREHOUSE ADMINISTRATOR Unavailable Unavailable Mae, N Alfred WAREHOUSE ADMINISTRATOR Unavailable Unavailable [place], N Alfred WAREHOUSE ADMINISTRATOR Unavailable Unavailable Jose, G Anita Unavailable Unavailable [...] by Article 27-F of the [facility] Public Health law. If you continue you may have access to information: Regarding HIV / AIDS; Provided by facilities licensed or operated by the [facility] Office of Mental Health; or Provided by the [facility] Office for People With Developmental Disabilities. If such information is present, then the following [facility] mandated warning applies: This information has [...] law may result in a fine or fci sentence or both. A general authorization for the release of medical or other information is NOT sufficient authorization for further disc losure. Family History Family Member Name Family Member Gender Family Member Status Date o f Status Description Data Source(s) Unknown Female Problem MEDENT ([facility] () Unknown Unknown Problem MED[facility] ([facility]) Unknown Male Problem MEDENT ([facility]) Unknown Male Problem MEDENT ([facility]) Unknown Male Problem MEDENT ([facility]) Encounters Encounter Providers Location Date Indications Data Source(s ) Outpatient Admitter: Anita Courtneyerrer: Anita Garcia 08/29/2020 12:00:00 AM EST Nutritional anemia, unspecified [facility] Nutritional anemia, unspecified Outpatient Attender: Leonila SMITH-SJSaeidWINNIE 12:00:00 AM EST [facility] O Attender: Dontae TAVAREZ 08/09/19 21 09:28:44 AM EST - 08/09/2020 10:26:27 AM EST [facility] ([facility] ) Outpatient Attender: Leonila SMITH-SJPChesterWINNIE 12:00:00 AM EST - 06/13/2020 02:44:23 PM EST [facility] Outpatient Attender: Alfred SMITH-WINNIE 020 12:00:00 AM EDT - 01/03/2020 10:55:40 AM EDT [facility] Outpatient Attender: DORA villalpando 08/29/2019 07:20:00 AM EST MED[facility] ([facility] Outpatient Attender: Alfred Wall NPReferrer: Alfred Wall WAREHOUSE ADMINISTRATOR SJP.WINNIE-SJP 08/16/2019 11:14:09 AM EST - 08/16/2019 11:58:02 AM EST [facility] Medications Medication Brand Name Start Date Product Form Dose Route Admi nistrative Instructions Pharmacy Instructions Status Indications Reaction Description Data Source(s) Simvastatin 40 MG Oral Tablet simvastatin (ZOCOR) 40 M G tablet simvastatin (ZOCOR) 40 MG tablet 06/28/2020 12:00:00 AM EST active Take 1 tablet by mouth once daily [facility] Betamethasone 0.5 MG/ML Topical Cream be tamethasone dipropionate (DIPROLENE) 0.05 % cream betamethasone dipropionate (DIPROLENE) 0.05 % cream 12:00:00 AM EST active APPLY AT BEDTIME TO GROIN AREA [facility] pantoprazole 40 MG Delayed Release Oral Tablet pantoprazole (PROTONIX) 40 MG tablet pantoprazole (PROTONIX) 40 MG tablet 06/05/2020 12:00:00 AM EST 40 mg Oral active Take 40 mg by mouth daily [facility] Doxycycline Monohydrate 50 MG Oral Tablet doxycycline (ADOXA) 50 MG tablet doxycycline (ADOXA) 50 MG tablet 05/08/2020 12:00:00 AM EDT 50 mg Oral active Take 50 mg by mouth daily [facility] Simvastatin 40 MG Oral Tablet simvastatin (ZOCOR) 40 M G tablet simvastatin (ZOCOR) 40 MG tablet 03/16/2020 12:00:00 AM EDT 40 mg Oral active Take 1 tablet (40 mg total) by mouth daily [facility] Cyclosporine 0.5 MG/ML Ophthalmic Suspen akila [Restasis] RESTASIS 0.05 % ophthalmic emulsion RESTASIS 0.05 % ophthalmic emulsion 12/13/2019 12:00:0 0 AM EDT active as needed [facility] rivaroxaban 20 MG Oral Tablet rivaroxaban (XARELTO) 20 MG TABS rivaroxaban (XARELTO) 20 MG TABS 10/16/2019 12:00:00 AM EDT 20 mg Oral aborted Take 1 tablet (20 mg total) by mouth daily [facility] Doxycycline Monohydrate 100 MG Oral Capsule Doxycycline Colbert hydrate 09/17/2019 12:00:00 AM EST ORAL active M EDENT [facility] Insurance Providers Payer name Policy type / Coverage type Policy ID Covered green party ID Covered green party's relationship to piper Policy Piper Plan Information WELLCARE [id number] SP [id number] [facility] [id number] Self [id number] WELLCARE MEDICARE [id number] WELLCARE MEDICARE [id number] Valorie 07 [id number] [facility] 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 [id number] Valorie f [id number] MEDICARE [id number] SP [id number] WELLCARE O [id number] S [id number] [facility] GROUP NF O [id number] S [id number] [facility] MEDICAL CLAIMS SP [facility] MEDICAL CLAIMS [id number] SP [id number] [facility] INS WORKER COMP [id number] SP [id number] [facility] GROUP [id number] SP [id number] WELLCARE [id number] SP [id number] Today's Option Commercial [id number] Self [id number] TODAYS OPTIONS [id number] SP [id number] MEDICARE C [id number] S [id number] TODAYS OPTIONS/CONGOLESE O [id number] S [id number] O UNAVAILABLE UNAVAILA BLE AARP O [id number] S [id number] Today's Option Commercial [id number] Self [id number] Today's Option Commercial [id number] Self [id number] Today's Option Commercial [id number] Self [id number] MEDICARE C [id number] S [id number] A EMPIRE ALL [facility] O [id number] S [id number] [employer] FINANCIAL NO-FAULT [id number] SP [id number] AAR HE[employer] CARE OPTIONS [id number] SP [id number] MEDICARE [id number] SP [id number] A AARP [place] [id number] SP [id number] [place] Ins (WC) Workers Compensation [id number] Self [id number] Todays Options Medigap Part B [id number] Self [id number] Aarp Healthcare Options Medigap Part B [id number] Self [id number] Medicare Dme Supplies Medigap Part B [id number] Self [id number] Medicare [facility] Medicare Primary [id number] Self [id number] Today's Options Medicare Commercial [id number] Self [id number] Aarp Medigap Part B [id number] Self [id number] Medicare [facility] Medicare Primary [id number] Self [id number] Medicare Dme Supplies Medigap Part B Self Todays Options Medigap Part B Self Aarp Healthcare Options Medigap Part B Self Medicare [facility] Medicare Primary Self AARP HEALTH CARE OPTIONS [id number] SP [id number] SECURITY MUTUAL INS CO CLAIM #[id number] CLAIM [id number] SECURITY MUTUAL [id number] [id number] SECURITY MUTUAL CLIAM#[id number] [id number] CLIAM#[id number] SELF PAY UNAVAILABLE SP UNAVAILA BLE MEDICARE [id number] SP [id number] A TODAYS OPT[place] [id number] [place] [id number] TODAYS OPTIONS/CONGOL[place] P [id number] S [id number] Problems, Conditions, and Diagnoses Code Display Name Description Problem Type Effective Dates Data Source(s) R07.89 Chest discomfort Chest discomfort [id number] 08/15/2020 12 :00:00 AM [facility] D53.9 Nutritional anemia, unspecified Nutritional anemia, un specified Diagnosis 08/29/2020 11:47:00 AM [facility] I48.0 Paroxysmal atrial fibrillation Paroxysmal atrial fibri llation Diagnosis 08/15/2020 11:04:28 AM [facility] I35.0 Nonrheumatic aortic (valve) stenosis Nonrheumati c aortic (valve) stenosis Diagnosis 08/15/2020 11:04:28 AM [facility] E78.5 Hyperlipidemia, unspecified Hyperlipidemia, unspecifie d Diagnosis 08/15/2020 11:04:28 AM 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 Occlusion and stenosis of bilateral lowery Diagnosis 08/15/2020 11:04:28 AM EST [facility] D64.9 Anemia, unspecified Anemia, unspecified Diagnosis 1 08/13/2019 01:28:08 PM EST [facility] Surgeries/Procedures Procedure Description Date Indications Data Source(s) BLOOD COUNT COMPLETE AUTO&AUTO DIFRNTL WBC COUNT CBC DIFF Routine 08/15/2020 3:13 PM EST Paroxysmal atrial fibrillation 08/15/2020 08:13:00 PM EST Pa roxysmal atrial fibrillation [facility] Paroxysmal atrial fibrillation BASIC METABOLIC PANEL CALCIUM TOTAL BASIC METABOLIC PANEL Routi ne 08/15/2020 3:13 PM EST Paroxysmal atrial fibrillation 08/15/2020 08:13:00 PM EST Pa roxysmal atrial fibrillation [facility] Paroxysmal atrial fibrillation ECG ROUTINE ECG W/LEAST 12 LDS W/I&R POCT AMB EKG Routine 08/15/2020 1:22 PM EST Paroxysmal atrial fibrillation Chest pain, unspecified type 08/15/2020 06:22:00 PM EST [place] pain, unspecified typeParoxysmal atrial fibrillation [facility] Chest pain, unspecified type Paroxysmal atrial fibrillation ECG ROUTINE ECG W/LEAST 12 LDS W/I&R POCT AMB EKG Routine 06/15/2020 9:30 AM EST Paroxysmal atrial fibrillation 06/15/2020 02:30:00 PM EST Pa roxysmal atrial fibrillation [facility] Paroxysmal atrial fibrillation DEBRIDEMENT NAIL ANY METHOD 05/24/2020 12:00:00 AM EST MEDENT ([facility] Spirometry 05/14/2020 12:00:00 AM EDT M EDENT ([facility], ) PARING/CUTTING BENIGN HYPERKERATOTIC LESION 2-4 [...] MAJOR JT/BURSA 019 12:00:00 AM EST MEDENT ([facility]) Results ID Date Data Source [id number] 08/30/2020 03:41:00 PM EST [facility] Hematopathology ReportName: ELBA GALEASMRN: [id number] Number: [id number] Date: 08/29/2020 00:00Received Date: 08/29/2020 14:25Physician(s): ANITA GARCIA MD VYAS, SHIKHAR G[facility]opy To:[facility]imen[facility]s) ReceivedA: Bone Marrow, Flow Cytometry; Received [...] Signed Out08/31/2020 InterpretationPERIPHERAL BLOOD: CBC performed at [facility] (08/29/20) WBC 7.6 K/uLRBC *2.93 M/uLHgb *9.8 g/dLHct *31.5 %MCV *107.5 fLMCH *33.4 pgMCHC *31.1 g/dLRDW *21.0 %Platelets 180 K/ulDifferential Count (100 cells): 1 % Promyelocytes 3 % N. Myelocytes 4 % N. Metamyelocytes 3 % N. Band Forms40 % Neutrophils 2 % Eosinophils 4 % Cjsdjdgpg01 % Dplqozgcqgu19 % Monocytes-------100 % BONE MARROW ASPIRATE:Differential Count (100 cells):11 % Erythroid Precursors 1 % Blasts 9 % Yagelqaznpbte02 % N. Ehfujtqqck33 % N. Metamyelocytes and Band Forms 8 % Neutrophils 1 % Plasma Cells--------100 % Morphology: Myelocytes show decreased granularity and residualcytoplasmic basophilia. Rare erythroid presursors have lobated nuclei.MDS PanelThe following markers were assayed: CD45 (gate), CD7, CD10, CD11b, CD13,CD14, CD16, CD33, CD34, CD56, CD64, CD71, CD117, and glycophorin A.#events: [id number]: 94%Flow Cytometry Differential (CD45/SSC):Lymphocyte Kendall: 2%CD34/CD117 Blast Kendall: 0.9%Monocyte Kendall: 2%Granulocyte Kendall: 92%NRBC Kendall: 3% MDS PanelAntibody Population Patient NormalOrthogonal LightScatter Neutrophils High IqmwGE41 Granulocytes Moderate NcgrtpevNH32 Granulocytes Present OhwteumAB28 Granulocytes Absent PyzukrDX42/CD14 Monocytes Absent GoypexGT77/CD117 Blasts Not Increased Not IncreasedCD7 CD34+ Blasts Absent OholmkNZ81 Maturing Granulocytes Present AihygnoTC24 Maturing Granulocytes Present TpwdhzzRT35/CD13 Pattern Myeloid Cells Slightly AbnormalPattern Normal TlbgbbcPS60/CD11b Pattern Myeloid Cells Slightly AbnormalPattern Normal GbxinstRI47/Glycophorin A Glycophorin+ Red Cells High HighLymphoid Panel: The following markers were assayed: CD45 (gate), CD2, CD3, CD4, CD5, CD7,CD8, CD10, CD19, CD20, CD38, CD56, CD57, [place], and Lambda.#events: [id number]: 98%Flow Cytometry Differential (CD45/SSC)Lymphocyte Kendall: 2%CD45 dim Kendall: 0%Monocyte Kendall: 2%Granulocyte Kendall: 89%Nucleated/Erythroid Kendall: 4%The lymphocyte gate showsB-cells (CD19): 4%T-cells (CD3): 77%NK-cells (CD3-/CD56+): 14%[place]/Lambda Ratio: 1.1CD4/CD8 Ratio: 1.0Results: (expressed as % of lymphocyte gate)T-cell Markers: CD2 = 88, CD3 = 77, CD3/CD4 = 40, CD3/CD8 = 41, CD5 = 74,CD7 = 85, CD3/57 = 15B-cell markers: [place] = 2, Lambda = 1, CD19 = 4, CD20 = 4, CD19/10 = 1,CD19/CD5 = 0, CD38/CD20 = 4Light chain as % of B-Cells: CD19/[place] = 33, CD19/Lambda = 31,CD19/CD5/[place] = 3, CD19/CD5/Lambda = 0, CD19/CD10/[place] = 0,CD19/CD10/Lambda = 0NK cell Markers: CD56 [...] were developed and theirperformance characteristics determined by [facility] Pathology department.They have not been cleared or approved by the US Food and DrugAdministration. The FDA has determined that such clearance or approval isnot necessary. Name Value Range Interpretation Code Description Data Zoila rce(s) Supporting Document(s) ID Date Data Source [id number] 08/09/2020 02:15:00 PM EST [facility] Name Value Range Interpretation Code Description Data Zoila rce(s) Supporting Document(s) SARS coronavirus 2 RNA [Presence] in Res piratory specimen by GREGORY with probe detection NEGATIVE [facility] This lab was ordered by [facility] a nd reported by [facility]. ID Date Data Source [id number] 07/17/2020 12:00:00 AM EST [facility] Olaf Zavala MD Patient Name: VENUS GALEAS [id number] [facility] Date of : 1940[place] Date of Exam: 07/17/2020NovaCARLOS ALBERTO cordon [id number]#: Fax: [phone] EXAM: CT THORAX WITHOUT CONTRASTCLINICAL [...] followup of such lung fieldabnormalities.Accredited by the [employer] in [place]QUIN Mulligan/Roberto you for referring VENUS GALEAS to our office. Electronically Signed - DIDIER MUSA DO 07/17/20 17:04 Name Value Range Interpretation Code Description Data Zoila rce(s) Supporting Document(s) ID Date Data Source [id number] 05/21/2020 12:00:00 AM EST [facility] Olaf Zavala MD Patient Name: VENUS [id number] [facility] Date of : 1940[place] Date of Exam: 05/21/2020CARLOS ALBERTO Barnard [id number]#: Fax: [phone] EXAM: CHEST (2 VIEW) X-RAYCLINICAL [...] rce(s) Supporting Document(s) ID Date Data Source [id number] 08/16/2019 06:32:29 PM EST [facility] Name Value Range Interpretation Code Description Data Zoila rce(s) Supporting Document(s) &PDF [facility] AMDPVl8bOlWTHvMh78/YJMdbQAUan5MkNLhpVSn9RXrlZJZvK9SfbLvqCWoVU3nRBbXmSn5BDTISMUmk vci [file] ICAgICAgICAgICAgICAgICAgICAgICAgICAgICAgICAgICAgICAgICAgICAgICAgICAgICAgICAgICAg ICAgICAgICAgICAgICAgICAgICAgICAgICAgICAgIC ANCiAgICAgICAgICAgICAgICAgICAgICAgICAgICAgICAgICAgICAgICAgICAgICAgICAgICAgICAgIC AgICAgICAgICAgICAgICAgICAgICAgICAgICAgICAgICAgICAgICAgICANCiAgICAgICAgICAgICAgIC AgICAgICAgICAgICAgICAgICAgICAgICAgICAgICAg ICAgICAgICAgICAgICAgICAgICAgICAgICAgICAgICAgICAgICAgICAgICAgICAgICAgICANCiAgICAg ICAgICAgICAgICAgICAgICAgICAgICAgICAgICAgICAgICAgICAgICAgICAgICAgICAgICAgICAgICAg ICAgICAgICAgICAgICAgICAgICAgICAgICAgICAgIC AgICANCiAgICAgICAgICAgICAgICAgICAgICAgICAgICAgICAgICAgICAgICAgICAgICAgICAgICAgIC AgICAgICAgICAgICAgICAgICAgICAgICAgICAgICAgICAgICAgICAgICAgICANCiAgICAgICAgICAgIC AgICAgICAgICAgICAgICAgICAgICAgICAgICAgICAg ICAgICAgICAgICAgICAgICAgICAgICAgICAgICAgICAgICAgICAgICAgICAgICAgICAgICAgICANCiAg ICAgICAgICAgICAgICAgICAgICAgICAgICAgICAgICAgICAgICAgICAgICAgICAgICAgICAgICAgICAg ICAgICAgICAgICAgICAgICAgICAgICAgICAgICAgIC AgICAgICANCiAgICAgICAgICAgICAgICAgICAgICAgICAgICAgICAgICAgICAgICAgICAgICAgICAgIC AgICAgICAgICAgICAgICAgICAgICAgICAgICAgICAgICAgICAgICAgICAgICAgICANCiAgICAgICAgIC AgICAgICAgICAgICAgICAgICAgICAgICAgICAgICAg ICAgICAgICAgICAgICAgICAgICAgICAgICAgICAgICAgICAgICAgICAgICAgICAgICAgICAgICAgICAN CiAgICAgICAgICAgICAgICAgICAgICAgICAgICAgICAgICAgICAgICAgICAgICAgICAgICAgICAgICAg ICAgICAgICAgICAgICAgICAgICAgICAgICAgICAgIC AgICAgICAgICANCjw/uVEbW6qwyMXbjzG8L2lqNy8RBt6QHF0tf1AfUSBuAOpcatZtQvfVHvYkWYZkGq bLCok2AOvkWJ9QcMQhN9KeU1JqRCjaIX5WFHYdFVNwpDZaBLTbOYOsCdZ4INAqUHvlHE7SaEMdAQnqSL RlHAJdTyDvMFGiAQ3VOSLmT684cwYyMt5SZs0VRfEw DX1goc6ITbHqZIPeOcoCSsk8QWlyOC8HjVMuO1BruGJmx5iWFgPqB7MMDVR3BFPgFm6JRGUeRgVoAHBx NQhhHJ8cZAExQVJKtPttymZ9XI9RCY8ecwNbNQ1YOpBoOk5qEt1RQwNiK1JhD2PfDEZhSXICHVweUN0I JYGhUDP3PVGwZKLtOJSCKfDfS73dGR5YS4Fie43dCb X9OLFySpKcCUztBW92tFhgeqBbyIVybZapSW6IFg2+DQplbmRvYmoNCnhyZWYNCjAgMjINCjAwMDAwMD EzPVFuRvB3OoYlYf7DPYGfBOQyQNEqFuUqVILnAXIkXUpfRGTqCQQ1TBHtMOOyEREiOM5QSfHyGMWgZb Q5TYfyASAbASTdfl0CJTLdGZQoODN4KuJzULCeWLRp GSxnJSEkHDRcQbzsXMGrPFMiHU0BFuMqYPVvTMM5HzMtJTSbUAEwqn2PTWCvHJJyLcW8JEKfFAZpHXKh SKjeTTMfJIF0Zsc9YXBuYGDtHS7RBxLbSLIbVJamSTfdQHWwAMFnot2EOHQhTUAbCtP8AVNkTNLgLFUe WBqwWCCiWOQ3QaI6XRUqIOZkHS7LHpJkBPObDVp6NS ZkARNzYEGofb3LTRMwNGFsQHjgSPZvOJHmILRbVMbsWOEwZSY3UEc2JPDlDYGbKZ9JSdZgTDKtWIy8QA JyGOCyDXPdif4IEKLwKKAsCVJ6EtRrDORhJDRvMWojPFNwCEKqUhP7ULGmPVStPC9XVtQhAZEbWROvUj RbFEFuFKYbtg3SGDFbPVNnBIUdHCCoUUPxYABuBBwz JEVrWRH9QNO4CLOyQVYqSQ4CVrAwGAMoUdF2DYPmYQLpGLXptf2WzGGwlQdvdm6KKUiJDi6MkFpgAUUd GUodXv1ldRGjOSIgVBGKNo9LrzUrGDWfFRMBPUojTVAeAWhtYzcsBGAjAqHvSVejX2QqQYGjQOEcVQE6 UeHkUIP2VjN3YKN8YDXlYPY6P4E7KGBnCFJ0HxCgFO Y0BnSlI5Z7Cuv+XZ0zPFu+Kq4Pk5CkenG6piKlUHipTCPxAI9VKUTLC9THUz== Procedure Social History Code Duration Value Status Description Data Source(s ) Alcohol intake 06/15/2020 12:00:00 AM EST Never completed [facility] Smoking 06/15/2020 12:00:00 AM EST Former smoker completed Former smoker [facility] Smoking 05/14/2020 12:00:00 AM EDT Non Smoker completed Non Smoke r MEDENT ([facility], ) Vital Signs ID Date Data Source UNK Name Value Range Interpretation Code Description Data Source(s) Oxygen saturation in Arterial blood by Pulse oximetry 92 % 92 % [facility] Body mass index (BMI) [Ratio] 22.53 kg/m2 22.53 kg/m2 [facility] Body weight 71.215 kg 71.215 kg [facility] Body height 177.8 cm 177.8 cm [facility] Heart rate 78 /min 78 /min [facility] Diastolic blood pressure 60 mm[Hg] 60 mm[Hg] [facility] Systolic blood pressure 124 mm[Hg] 124 mm[Hg] [facility] Diastolic blood pressure 52 mm[Hg] 52 mm[Hg] [facility] Systolic blood pressure 110 mm[Hg] 110 mm[Hg] [facility] Oxygen saturation in Arterial blood by Pulse oximetry 96 % 96 % [facility] Body mass index (BMI) [Ratio] 22.38 kg/m2 22.38 kg/m2 [facility] Body weight 70.761 kg 70.761 kg [facility] Body height 177.8 cm 177.8 cm [facility] Heart rate 73 /min 73 /min [facility] Body weight 72.576 kg 72.576 kg [facility] [place] body weight 166 [lb_av] 166 [lb_av] MEDEN T ([facility], ) Body mass index (BMI) [Ratio] 23.0 kg/m2 23.0 k g/m2 MEDENT ([facility], ) Body weight 160.00 [lb_av] 160.00 [lb_av] MEDEN T ([facility], ) Body height 70 [in_i] 70 [in_i] [facility], [facility] 5'10" Oxygen saturation in Arterial blood by Pulse oximetry 97 % 97 % [facility] ([facility]) Room Air Heart rate 73 /min 73 /min [facility] ([facility]) Diastolic blood pressure 64 mm[Hg] 64 mm[Hg] [facility] ([facility]) Systolic blood pressure 118 mm[Hg] 118 mm[Hg] [facility] Body mass index (BMI) [Ratio] 22.2 kg/m2 22.2 k g/m2 [facility] ([facility]) Body height 70 [in_i] 70 [in_i] [facility] ([facility]) 5'10" Body weight 155.00 [lb_av] 155.00 [lb_av] MEDEN T ([facility], [facility]) Body temperature 97.2 [degF] 97.2 [degF] [facility] ([facility], [facility]) Oxygen saturation in Arterial blood by Pulse oximetry 98 % 98 % [facility] ([facility], [facility]) Respiratory rate 18 /min 18 /min [facility] ( [facility], [facility]) Heart rate 58 /min 58 /min [facility] ([facility], [facility]) Diastolic blood pressure 67 mm[Hg] 67 mm[Hg] [facility] ([facility], [facility]) Systolic blood pressure 111 mm[Hg] 111 mm[Hg] [facility] ([facility], [facility]) Body mass index (BMI) [Ratio] 22.2 kg/m2 22.2 k g/m2 [facility] ([facility], [facility]) Body height 70 [in_i] 70 [in_i] MEDENT ([facility], [facility]) 5'10" Body weight 155.00 [lb_av] 155.00 [lb_av] MEDEN T ([facility], [facility]) Body temperature 98.2 [degF] 98.2 [degF] MEDENT ([facility], [facility]) Respiratory rate 18 /min 18 /min [facility] ( [facility], [facility]) Heart rate 68 /min 68 /min [facility] ([facility], [facility]) Diastolic blood pressure 80 mm[Hg] 80 mm[Hg] [facility] ([facility], [facility]) Systolic blood pressure 134 mm[Hg] 134 mm[Hg] M EDENT ([facility], [facility]) Patient Treatment Plan of Care Planned Activity Planned Date Details Description Data Source (s) Simvastatin 40 MG Oral Tablet 06/28/2020 12:00:00 AM EST [facility] Betamethasone 0.5 MG/ML Topical Cream 06/20/2020 12:00:00 AM EST [facility] pantoprazole 40 MG Delayed Release Oral Tablet 06/05/2020 12:00:00 AM EST [facility] Doxycycline Monohydrate 50 MG Oral Tablet 05/08/2020 12:00:00 AM ED T [facility] Simvastatin 40 MG Oral Tablet 03/16/2020 12:00:00 AM EDT [facility] Cyclosporine 0.5 MG/ML Ophthalmic Suspension [Restasis ] 12/13/2019 12:00:[address] [facility] rivaroxaban 20 MG Oral Tablet 10/16/2019 12:00:00 AM EDT [facility]
[2020-09-02 16:59] LABS: HEMATOCRIT 28.8 % (42.0-52.0); HEMOGLOBIN 8.8 g/dl (13.5-17.5); MEAN CORPUSCULAR HEMOGLOBIN 33.5 pg (27.0-33.0); MEAN CORPUSCULAR HGB CONC 30.6 g/dl (32.0-36.5); MEAN CORPUSCULAR VOLUME 109.5 fl (80.0-96.0); PLATELET COUNT, AUTOMATED 225 10^3/uL (150-450); RED BLOOD COUNT 2.63 10^6/uL (4.30-6.10); WHITE BLOOD COUNT 11.4 10^3/uL (4.0-10.0)
[2020-09-02 17:24] LABS: BLOOD UREA NITROGEN 14 MG/DL (7-18); CALCIUM LEVEL 7.9 MG/DL (8.8-10.2); CARBON DIOXIDE LEVEL 27 MEQ/L (21-32); CHLORIDE LEVEL 108 MEQ/L (98-107); CK-MB VALUE MASS < 1.0 NG/ML (<3.6); CPK CREATINE PHOSPHOKINASE 35 U/L (39-308); CREATININE FOR GFR 0.95 MG/DL (0.70-1.30); GLOMERULAR FILTRATION RATE > 60.0 (>35); GLUCOSE, FASTING 137 MG/DL (70-100); MB/CK RELATIVE INDEX 2.86 (< OR =4); POTASSIUM SERUM 3.9 MEQ/L (3.5-5.1); SODIUM LEVEL 145 MEQ/L (136-145); TROPONIN I 0.02 NG/ML (< 0.10)
[2020-09-02] MEDS ORDERED: PATIENT COMMENT (18:00)
--- NOTE | 2020-09-02 18:10 | REP ---
INDICATION: SOB. COMPARISON: Comparison chest x-ray 16 August 2020.. TECHNIQUE: Upright AP portable chest radiograph. FINDINGS: Monitoring electrodes are seen. There is calcific pleural plaquing along the right diaphragm. Diffuse interstitial fibrosis pattern is seen. Granulomatous calcifications noted in the left lung base and another in each apex. The heart is enlarged unchanged. Pulmonary vasculature is slightly cephalized. IMPRESSION: Diffuse interstitial fibrosis pattern unchanged from prior study. Mild cardiomegaly. Pulmonary vascular cephalization. <Electronically signed by Kelby Smalls > 09/02/20 [id number]
[2020-09-02 18:43] VITALS: BP 101/58
[2020-09-02 18:51] LABS: RSV AMPLIFICATION NEGATIVE (NEGATIVE)
[2020-09-02 18:58] VITALS: BP 128/61
[2020-09-02] MEDS ORDERED: ACETAMINOPHEN TAB 650MG DOSE (2X325MG) PO PRN (19:15)
--- NOTE | 2020-09-02 19:19 | HPEPDOC ---
General Date of Admission 09/02/20 Date of Service: Sep 02, 2020 Chief Complaint The patient is a 80-year-old male admitted with a reason for visit of Chest Pain. Source: Patient Exam Limitations: No limitations History of Present Illness Patient is 80 years old male with past history of MDS, COPD, atrial fibrillation, coronary artery diseases, aortic stenosis presented to the hospital with increased weakness and shortness of breath. Patient stated that he is recently been diagnosed with MDS. For past few days he has been having increased shortness of breath on exertion, palpitations and weakness. Of note, On 05/28/2020 he was admitted through emergency room because of increasing weakness and was found to be severely anemic. Patient was admitted and was given 3 units of packed red cells. During that admission he underwent EGD and colonoscopy which were normal without any bleeding source. In ER patient was found to have white blood count 11.4, hemoglobin 8.8 CT chest was done and showed Diffuse interstitial fibrosis pattern unchanged from prior study Home Medications Scheduled Ascorbic Acid (Ascorbic Acid) 500 Mg Tablet, 500 MG PO DAILY, (Reported) Calcium Carbonate/Vitamin D3 (Calcium 500-Vit D3 200 Tablet) 1 Each Tablet, 1 TAB PO DAILY, (Reported) Cholecalciferol (Vitamin D3) (Vitamin D3) 1,000 Unit Tablet, 1,000 UNITS PO DAILY, (Reported) Cyclosporine (Restasis) 0.05% Droperette, 1 DROP OU BID, (Reported) Doxycycline Monohydrate (Doxycycline Monohydrate) 50 Mg Tablet, 50 MG PO DAILY, (Reported) Ferrous Sulfate (Ferrous Sulfate) 325 Mg Tablet, 325 MG PO DAILY, (Reported) Gluc Gramajo/Chondro Gramajo A/Vit C/Mn (Glucosamine Chondroitin Tab) 1 Each Tablet, 1 TAB PO DAILY, (Reported) Meclizine HCl (Meclizine HCl) 12.5 Mg Tablet, 12.5 MG PO TID, (Reported) Multivitamins (Thera M Plus Tablet) 1 Each Tablet, 1 TAB PO DAILY, (Reported) Niacin (Inositol Niacinate) (Niacin 500 mg Capsule) 500 Mg Capsule, 1 CAP PO DAILY, (Reported) Humboldt-3 Fatty Acids (Humboldt-3) 1,000 Mg Capsule, 1,000 MG PO DAILY, (Reported) Pantoprazole Sodium (Pantoprazole Sodium) 40 Mg Tablet.dr, 40 MG PO DAILY, (Reported) Simvastatin (Simvastatin) 40 Mg Tablet, 40 MG PO QHS, (Reported) Timolol Maleate (Timolol Maleate) 0.5% 5ML Drops, 1 DROP OU DAILY, (Reported) Miscellaneous Medications [Patient Comment] , (Reported) PATIENT TOOK SOME OF HIS MEDICATIONS, BUT NOT ALL AND IS UNSURE WHICH HE TOOK Allergies Coded Allergies: No Known Allergies (Unverified , 11/17/18) Past Medical History Medical History COPD, atrial fibrillation, coronary artery disease, aortic stenosis, MDS Surgical History History of cholecystectomy 6 years ago. Carpal tunnel surgery Family History Patient one sister of lung cancer stage IV. One brother of diabetic complications. 2 sisters are alive and are doing well. Father of Parkinson's disease and at the age of 98. Mother passed be due to old age. Social History * Smoker: former Smoker Alcohol: Denies Drugs: denies A-FIB/CHADSVASC A-FIB History Current/History of A-Fib/PAF?: Yes Current PO Anticoag Therapy: No Review of Systems Constitutional: Reports: Weakness, Fatigue; Denies: Chills, Fever Eyes: Denies: Pain ENT: Denies: Head Aches Skin: Denies: Rash, Lesions Pulmonary: Reports: Dyspnea; Denies: Cough Cardiovascular: Reports: Palpitations; Denies: Chest Pain Gastrointestinal: Denies: Nausea Genitourinary: Denies: Dysuria Hematologic: Denies: Bruising Endocrine: Denies: Polydipsia Musculoskeletal: Denies: Neck Pain Neurological: Denies: Weakness Psych: Reports: Mood Normal Physical Examination General Exam: Positive: Alert Eye Exam: Positive: PERRLA ENT Exam: Positive: Atraumatic Neck Exam: Positive: Supple; Negative: JVD Chest Exam: Positive: Clear to auscultation Heart Exam: Positive: Irregular Rhythm Telemetry: Positive: Atrial fibrillation Abdomen Exam: Positive: Normal bowel sounds Extremity Exam: Negative: Cyanosis Skin Exam: Positive: Nl turgor and temperature Neuro Exam: Positive: Strength at 5/5 X4 ext Psych Exam: Positive: Mental status NL Vital Signs Vital Signs Date Time Temp Pulse Resp B/P (MAP) Pulse Ox O2 Delivery O2 Flow Rate FiO2 09/02/20 18:58 99.1 91 18 128/61 100 Room Air Laboratory Data Labs 24H Laboratory Tests 2 09/02/20 16:49: Nucleated Red Blood Cells % (auto) 0.0, Anion Gap 10, Glomerular Filtration Rate > 60.0, Calcium Level 7.9L, Total Creatine Kinase 35L, Creatine Kinase MB < 1.0, Creatine Kinase MB Relative Index 2.86, Troponin I 0.02 09/02/20 18:03: Coronavirus (COVID-19)(PCR) NEGATIVE, Influenza Type A (RT-PCR) NEGATIVE, Inf luenza Type B (RT-PCR) NEGATIVE, Respiratory Syncytial Virus (PCR) NEGATIVE CBC/BMP Laboratory Tests 09/02/20 16:49 Assessment/Plan Patient is 80 years old male with past history of MDS, COPD, atrial fibrillation, coronary artery diseases, aortic stenosis presented to the hospital with increased weakness and shortness of breath. Patient stated that he is recently been diagnosed with MDS. For past few days he has been having increased shortness of breath on exertion, palpitations and weakness. Of note, On 05/28/2020 he was admitted through emergency room because of increasing weakness and was found to be severely anemic. Patient was admitted and was given 3 units of packed red cells. During that admission he underwent EGD and colonoscopy which were normal without any bleeding source. In ER patient was found to have white blood count 11.4, hemoglobin 8.8 CT chest was done and showed Diffuse interstitial fibrosis pattern unchanged from prior study Problems (1) Symptomatic anemia Status: Acute Problem Text: Secondary to MDS Patient received 2 units of blood in ER Follow-up with oncologist in the outpatient settings I will give gentle diuresis after blood transfusion due to severe aortic stenosis. 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
--- OUTSIDE RECORDS SUMMARY | 2020-09-02 19:27 | CCD ---
Author Author [facility] Organization [facility] Address Unknown Phone Unavailable Care Team Providers Care Vocational Rehab Consultant Name Role Phone Perez, L Leonila PA [...] Unavailable Unavailable SAI, DORA PA Unavailable Unavailable Humboldt, N Alfred GLOBAL SECURITY ARCHITECT Unavailable Unavailable [place], N Alfred GLOBAL SECURITY ARCHITECT Unavailable Unavailable [place], N Alfred GLOBAL SECURITY ARCHITECT Unavailable Unavailable Mae, N Alfred GLOBAL SECURITY ARCHITECT Unavailable Unavailable [place], N Alfred GLOBAL SECURITY ARCHITECT Unavailable Unavailable Mae, N Alfred GLOBAL SECURITY ARCHITECT Unavailable Unavailable [place], N Alfred GLOBAL SECURITY ARCHITECT Unavailable Unavailable [place], N Alfred GLOBAL SECURITY ARCHITECT Unavailable Unavailable Mae, N Alfred GLOBAL SECURITY ARCHITECT Unavailable Unavailable Mae, N Alfred GLOBAL SECURITY ARCHITECT Unavailable Unavailable [place], N Alfred GLOBAL SECURITY ARCHITECT Unavailable Unavailable Mae, N Alfred GLOBAL SECURITY ARCHITECT Unavailable Unavailable Mae, N Alfred GLOBAL SECURITY ARCHITECT Unavailable Unavailable [place], N Alfred GLOBAL SECURITY ARCHITECT Unavailable Unavailable [place], N Alfred GLOBAL SECURITY ARCHITECT Unavailable Unavailable Mae, N Alfred GLOBAL SECURITY ARCHITECT Unavailable Unavailable Mae, N Alfred GLOBAL SECURITY ARCHITECT Unavailable Unavailable [place], N Alfred GLOBAL SECURITY ARCHITECT Unavailable Unavailable [place], N Alfred GLOBAL SECURITY ARCHITECT Unavailable Unavailable Mae, N Alfred GLOBAL SECURITY ARCHITECT Unavailable Unavailable [place], N Alfred GLOBAL SECURITY ARCHITECT Unavailable Unavailable Mae, N Alfred GLOBAL SECURITY ARCHITECT Unavailable Unavailable [place], N Alfred GLOBAL SECURITY ARCHITECT Unavailable Unavailable [place], N Alfred GLOBAL SECURITY ARCHITECT Unavailable Unavailable [place], N Alfred GLOBAL SECURITY ARCHITECT Unavailable Unavailable Mae, N Alfred GLOBAL SECURITY ARCHITECT Unavailable Unavailable Mae, N Alfred GLOBAL SECURITY ARCHITECT Unavailable Unavailable [place], N Alfred GLOBAL SECURITY ARCHITECT Unavailable Unavailable Mae, N Alfred GLOBAL SECURITY ARCHITECT Unavailable Unavailable Mae, N Alfred GLOBAL SECURITY ARCHITECT Unavailable Unavailable [place], N Alfred GLOBAL SECURITY ARCHITECT Unavailable Unavailable Jose, G Anita Unavailable Unavailable [...] is protected by Article 27-F of the [facility] Public Health law. If you continue you may have access to information: Regarding HIV / AIDS; Provided by facilities licensed or operated by the [facility] Office of Mental Health; or Provided by the [facility] Office for People With Developmental Disabilities. If such information is present, then the following [facility] mandated warning applies: This information has [...] law may result in a fine or long term sentence or both. A general authorization for the release of medical or other information is NOT sufficient authorization for further disc losure. Family History Family Member Name Family Member Gender Family Member Status Date o f Status Description Data Source(s) Unknown Female Problem MEDENT ([facility] () Unknown Unknown Problem [facility] ([facility]) Unknown Male Problem MEDENT ([facility]) Unknown Male Problem MEDENT ([facility]) Unknown Male Problem MEDENT ([facility]) Encounters Encounter Providers Location Date Indications Data Source(s ) Outpatient Admitter: Anita Courtneyerrer: Anita Garcia 08/29/2020 12:00:00 AM EST Nutritional anemia, unspecified [facility] Nutritional anemia, unspecified Outpatient Attender: Leonila SMITH-SJSaeidWINNIE 12:00:00 AM EST [facility] O Attender: Dontae TAVAREZ 08/09/19 21 09:28:44 AM EST - 08/09/2020 10:26:27 AM EST [facility] ([facility] ) Outpatient Attender: Leonila SMITH-SJPChesterWINNIE 12:00:00 AM EST - 06/13/2020 02:44:23 PM EST [facility] Outpatient Attender: Alfred SMITH-WINNIE 020 12:00:00 AM EDT - 01/03/2020 10:55:40 AM EDT [facility] Outpatient Attender: DORA villalpando 08/29/2019 07:20:00 AM EST [facility] ([facility] Outpatient Attender: Alfred Wall NPReferrer: Alfred Wall GLOBAL SECURITY ARCHITECT SJP.WINNIE-SJP 08/16/2019 11:14:09 AM EST - 08/16/2019 11:58:02 AM EST [facility] Medications Medication Brand Name Start Date Product Form Dose Route Admi nistrative Instructions Pharmacy Instructions Status Indications Reaction Description Data Source(s) Simvastatin 40 MG Oral Tablet simvastatin (ZOCOR) 40 M G tablet simvastatin (ZOCOR) 40 MG tablet 06/28/2020 12:00:00 AM EST active Take 1 tablet by mouth once daily [facility] Betamethasone 0.5 MG/ML Topical Cream be tamethasone dipropionate (DIPROLENE) 0.05 % cream betamethasone dipropionate (DIPROLENE) 0.05 % cream 12:00:00 AM EST active APPLY AT BEDTIME TO GROIN AREA [facility] pantoprazole 40 MG Delayed Release Oral Tablet pantoprazole (PROTONIX) 40 MG tablet pantoprazole (PROTONIX) 40 MG tablet 06/05/2020 12:00:00 AM EST 40 mg Oral active Take 40 mg by mouth daily [facility] Doxycycline Monohydrate 50 MG Oral Tablet doxycycline (ADOXA) 50 MG tablet doxycycline (ADOXA) 50 MG tablet 05/08/2020 12:00:00 AM EDT 50 mg Oral active Take 50 mg by mouth daily [facility] Simvastatin 40 MG Oral Tablet simvastatin (ZOCOR) 40 M G tablet simvastatin (ZOCOR) 40 MG tablet 03/16/2020 12:00:00 AM EDT 40 mg Oral active Take 1 tablet (40 mg total) by mouth daily [facility] Cyclosporine 0.5 MG/ML Ophthalmic Suspen akila [Restasis] RESTASIS 0.05 % ophthalmic emulsion RESTASIS 0.05 % ophthalmic emulsion 12/13/2019 12:00:0 0 AM EDT active as needed [facility] rivaroxaban 20 MG Oral Tablet rivaroxaban (XARELTO) 20 MG TABS rivaroxaban (XARELTO) 20 MG TABS 10/16/2019 12:00:00 AM EDT 20 mg Oral aborted Take 1 tablet (20 mg total) by mouth daily [facility] Doxycycline Monohydrate 100 MG Oral Capsule Doxycycline [place] hydrate 09/17/2019 12:00:00 AM EST ORAL active M EDENT ([facility] Insurance Providers Payer name Policy type / Coverage type Policy ID Covered republican ID Covered republican's relationship to piper Policy Piper Plan Information WELLCARE [id number] SP [id number] [facility] G [id number] Self [id number] WELLCARE MEDICARE [id number] WELLCARE MEDICARE [id number] Valorie 07 [id number] [facility] 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 [id number] Valorie f [id number] MEDICARE [id number] SP [id number] WELLCARE O [id number] S [id number] [facility] NF O [id number] S [id number] [employer] MEDICAL CLAIMS SP HASTINGS MEDICAL CLAIMS [id number] SP [id number] HASTINGS INS WORKER COMP [id number] SP [id number] [facility] [id number] SP [id number] WELLCARE [id number] SP [id number] Today's Option Commercial [id number] Self [id number] TODAYS OPTIONS [id number] SP [id number] MEDICARE C [id number] S [id number] TODAYS OPTIONS/KAZAKH O [id number] S [id number] O UNAVAILABLE UNAVAILA BLE AARP O [id number] S [id number] Today's Option Commercial [id number] Self [id number] Today's Option Commercial [id number] Self [id number] Today's Option Commercial [id number] Self [id number] MEDICARE C [id number] S [id number] A EMPIRE ALL [facility] O [id number] S [id number] [employer] FINANCIAL NO-FAULT [id number] SP [id number] AAR HEALTH CARE OPTIONS [id number] SP [id number] MEDICARE [id number] SP [id number] A AARP [place] [id number] SP [id number] [place] Butler Ins (WC) Workers Compensation [id number] Self [id number] Todays Options Medigap Part B [id number] Self [id number] [facility] Options Medigap Part B [id number] Self [id number] Medicare Dme Supplies Medigap Part B [id number] Self [id number] Medicare [facility] Medicare Primary [id number] Self [id number] Today's Options Medicare Commercial [id number] Self [id number] Aarp Medigap Part B [id number] Self [id number] [place] [facility] Medicare Primary [id number] Self [id number] Medicare Dme Supplies Medigap Part B Self Todays Options Medigap Part B Self Aarp [facility] Options Medigap Part B Self Medicare [facility] Medicare Primary Self AARP HEALTH CARE OPTIONS [id number] SP [id number] SECURITY MUTUAL INS CO CLAIM #[id number] [id number] CLAIM [id number] SECURITY MUTUAL [id number] MO2 [id number] SECURITY MUTUAL [id number] CLIAM#[id number] SELF PAY UNAVAILABLE SP UNAVAILA BLE MEDICARE [id number] SP [id number] A TODAYS OPTIONS [id number] SP [id number] TODAYS OPTIONS/KAZAKH P [id number] S [id number] Problems, Conditions, and Diagnoses Code Display Name Description Problem Type Effective Dates Data Source(s) R07.89 Chest discomfort Chest discomfort [id number] 08/15/2020 12 :00:00 AM [facility] D53.9 Nutritional anemia, unspecified Nutritional anemia, un specified Diagnosis 08/29/2020 11:47:00 AM [facility] I48.0 Paroxysmal atrial fibrillation Paroxysmal atrial fibri llation Diagnosis 08/15/2020 11:04:28 AM [facility] I35.0 Nonrheumatic aortic (valve) stenosis Nonrheumati c aortic (valve) stenosis Diagnosis 08/15/2020 11:04:28 AM [facility] E78.5 Hyperlipidemia, unspecified Hyperlipidemia, unspecifie d Diagnosis 08/15/2020 11:04:28 AM [facility] 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 Occlusion and stenosis of bilateral lowery Diagnosis 08/15/2020 11:04:28 AM EST [facility] D64.9 Anemia, unspecified Anemia, unspecified Diagnosis 1 08/13/2019 01:28:08 PM EST [facility] Surgeries/Procedures Procedure Description Date Indications Data Source(s) BLOOD COUNT COMPLETE AUTO&AUTO DIFRNTL WBC COUNT CBC DIFF Routine 08/15/2020 3:13 PM EST Paroxysmal atrial fibrillation 08/15/2020 08:13:00 PM EST Pa roxysmal atrial fibrillation [facility] Paroxysmal atrial fibrillation BASIC METABOLIC PANEL CALCIUM TOTAL BASIC METABOLIC PANEL Routi ne 08/15/2020 3:13 PM EST Paroxysmal atrial fibrillation 08/15/2020 08:13:00 PM EST Pa roxysmal atrial fibrillation [facility] Paroxysmal atrial fibrillation ECG ROUTINE ECG W/LEAST 12 LDS W/I&R POCT AMB EKG Routine 08/15/2020 1:22 PM EST Paroxysmal atrial fibrillation Chest pain, unspecified type 08/15/2020 06:22:00 PM EST [place] pain, unspecified typeParoxysmal atrial fibrillation [facility] Chest pain, unspecified type Paroxysmal atrial fibrillation ECG ROUTINE ECG W/LEAST 12 LDS W/I&R POCT AMB EKG Routine 06/15/2020 9:30 AM EST Paroxysmal atrial fibrillation 06/15/2020 02:30:00 PM EST Pa roxysmal atrial fibrillation [facility] Paroxysmal atrial fibrillation DEBRIDEMENT NAIL ANY METHOD 05/24/2020 12:00:00 AM EST MEDENT ([facility] Spirometry 05/14/2020 12:00:00 AM EDT M EDENT ([facility], ) PARING/CUTTING BENIGN HYPERKERATOTIC LESION [...] MAJOR JT/BURSA 019 12:00:00 AM EST MEDENT ([facility]) Results ID Date Data Source [id number] 08/30/2020 03:41:00 PM EST [facility] Hematopathology ReportName: ELBA GALEASMRN: [id number] Number: [id number] Date: 08/29/2020 00:00Received Date: 08/29/2020 14:25Physician(s): ANITA GARCIA MD VYAS, SHIKHAR G,[facility] [place] [facility]imen[facility]s) ReceivedA: Bone Marrow, Flow Cytometry; Received [...] Signed Out08/31/2020 InterpretationPERIPHERAL BLOOD: CBC performed at [facility] (08/29/20) WBC 7.6 K/uLRBC *2.93 M/uLHgb *9.8 g/dLHct *31.5 %MCV *107.5 fLMCH *33.4 pgMCHC *31.1 g/dLRDW *21.0 %Platelets 180 K/ulDifferential Count (100 cells): 1 % Promyelocytes 3 % N. Myelocytes 4 % N. Metamyelocytes 3 % N. Band Forms40 % Neutrophils 2 % Eosinophils 4 % Gkacsusuf43 % Ozuxtuzmukk54 % Monocytes-------100 % BONE MARROW ASPIRATE:Differential Count (100 cells):11 % Erythroid Precursors 1 % Blasts 9 % Tfduhpreeavso39 % N. Ovyilmuzbr16 % N. Metamyelocytes and Band Forms 8 % Neutrophils 1 % Plasma Cells--------100 % Morphology: Myelocytes show decreased granularity and residualcytoplasmic basophilia. Rare erythroid presursors have lobated nuclei.MDS PanelThe following markers were assayed: CD45 (gate), CD7, CD10, CD11b, CD13,CD14, CD16, CD33, CD34, CD56, CD64, CD71, CD117, and glycophorin A.#events: [id number]: 94%Flow Cytometry Differential (CD45/SSC):Lymphocyte Reno: 2%CD34/CD117 Blast [place]: 0.9%Monocyte [place]: 2%Granulocyte [place]: 92%NRBC [place]: 3% MDS PanelAntibody Population Patient NormalOrthogonal LightScatter Neutrophils High EvqmFG75 Granulocytes Moderate WrtlcglzHY07 Granulocytes Present MabwudjSL11 Granulocytes Absent YriplwVF06/CD14 Monocytes Absent TaskifEO10/CD117 Blasts Not Increased Not IncreasedCD7 CD34+ Blasts Absent BaqiwrRP64 Maturing Granulocytes Present RmwnnlqGO10 Maturing Granulocytes Present NfsstdnQN39/CD13 Pattern Myeloid Cells Slightly AbnormalPattern Normal EojwrltRA10/CD11b Pattern Myeloid Cells Slightly AbnormalPattern Normal UtnqqvrPI72/Glycophorin A Glycophorin+ Red Cells High HighLymphoid Panel: The following markers were assayed: CD45 (gate), CD2, CD3, CD4, CD5, CD7,CD8, CD10, CD19, CD20, CD38, CD56, CD57, [place], and Lambda.#events: [id number]: 98%Flow Cytometry Differential (CD45/SSC)Lymphocyte Reno: 2%CD45 dim Reno: 0%Monocyte Reno: 2%Granulocyte Reno: 89%Nucleated/Erythroid [place]: 4%The lymphocyte gate showsB-cells (CD19): 4%T-cells (CD3): 77%NK-cells (CD3-/CD56+): 14%[place]/Lambda Ratio: 1.1CD4/CD8 Ratio: 1.0Results: (expressed as % of lymphocyte gate)T-cell Markers: CD2 = 88, CD3 = 77, CD3/CD4 = 40, CD3/CD8 = 41, CD5 = 74,CD7 = 85, CD3/57 = 15B-cell markers: [place] = 2, Lambda = 1, CD19 = 4, CD20 = 4, CD19/10 = 1,CD19/CD5 = 0, CD38/CD20 = 4Light chain as % of B-Cells: CD19/[place] = 33, CD19/Lambda = 31,CD19/CD5/[place] = 3, CD19/CD5/Lambda = 0, CD19/CD10/[place] = 0,CD19/CD10/Lambda = 0NK cell Markers: CD56 [...] were developed and theirperformance characteristics determined by [facility] Pathology department.They have not been cleared or approved by the US Food and DrugAdministration. The FDA has determined that such clearance or approval isnot necessary. Name Value Range Interpretation Code Description Data Zoila rce(s) Supporting Document(s) ID Date Data Source [id number] 08/09/2020 02:15:00 PM EST [facility] Name Value Range Interpretation Code Description Data Zoila rce(s) Supporting Document(s) SARS coronavirus 2 RNA [Presence] in Res piratory specimen by GREGORY with probe detection NEGATIVE [facility] This lab was ordered by [facility] a nd reported by [facility]. ID Date Data Source [id number] 07/17/2020 12:00:00 AM EST [facility] Olaf Zavala MD Patient Name: VENUS GALEAS [id number] [facility] Date of : 1940[place] Date of Exam: 07/17/2020NovaCARLOS ALBERTO cordon [id number]#: Fax: [phone] EXAM: CT THORAX WITHOUT CONTRASTCLINICAL [...] followup of such lung fieldabnormalities.Accredited by the [employer] in [place].QUIN Mulligan/Roberto you for referring VENUS GALEAS to our office. Electronically Signed - DIDIER MUSA DO 07/17/20 17:04 Name Value Range Interpretation Code Description Data Zoila rce(s) Supporting Document(s) ID Date Data Source [id number] 05/21/2020 12:00:00 AM EST [facility] Olaf Zavala MD Patient Name: VENUS [id number] [facility] Date of : 1940[place] Date of Exam: 05/21/2020CARLOS ALBERTO Barnard [id number]#: Fax: [phone] EXAM: CHEST (2 VIEW) X-RAYCLINICAL [...] rce(s) Supporting Document(s) ID Date Data Source [id number] 08/16/2019 06:32:29 PM EST [facility] Name Value Range Interpretation Code Description Data Zoila rce(s) Supporting Document(s) &PDF [facility] SOMPFo8gZuUSMcTi62/XXAzhACIyr8VzJKcyNDd5JUyjSEHgK3BrqWoxVGjUF0eCQfXrPu2SYVIAWRrx vci [file] ICAgICAgICAgICAgICAgICAgICAgICAgICAgICAgICAgICAgICAgICAgICAgICAgICAgICAgICAgICAg ICAgICAgICAgICAgICAgICAgICAgICAgICAgICAgIC ANCiAgICAgICAgICAgICAgICAgICAgICAgICAgICAgICAgICAgICAgICAgICAgICAgICAgICAgICAgIC AgICAgICAgICAgICAgICAgICAgICAgICAgICAgICAgICAgICAgICAgICANCiAgICAgICAgICAgICAgIC AgICAgICAgICAgICAgICAgICAgICAgICAgICAgICAg ICAgICAgICAgICAgICAgICAgICAgICAgICAgICAgICAgICAgICAgICAgICAgICAgICAgICANCiAgICAg ICAgICAgICAgICAgICAgICAgICAgICAgICAgICAgICAgICAgICAgICAgICAgICAgICAgICAgICAgICAg ICAgICAgICAgICAgICAgICAgICAgICAgICAgICAgIC AgICANCiAgICAgICAgICAgICAgICAgICAgICAgICAgICAgICAgICAgICAgICAgICAgICAgICAgICAgIC AgICAgICAgICAgICAgICAgICAgICAgICAgICAgICAgICAgICAgICAgICAgICANCiAgICAgICAgICAgIC AgICAgICAgICAgICAgICAgICAgICAgICAgICAgICAg ICAgICAgICAgICAgICAgICAgICAgICAgICAgICAgICAgICAgICAgICAgICAgICAgICAgICAgICANCiAg ICAgICAgICAgICAgICAgICAgICAgICAgICAgICAgICAgICAgICAgICAgICAgICAgICAgICAgICAgICAg ICAgICAgICAgICAgICAgICAgICAgICAgICAgICAgIC AgICAgICANCiAgICAgICAgICAgICAgICAgICAgICAgICAgICAgICAgICAgICAgICAgICAgICAgICAgIC AgICAgICAgICAgICAgICAgICAgICAgICAgICAgICAgICAgICAgICAgICAgICAgICANCiAgICAgICAgIC AgICAgICAgICAgICAgICAgICAgICAgICAgICAgICAg ICAgICAgICAgICAgICAgICAgICAgICAgICAgICAgICAgICAgICAgICAgICAgICAgICAgICAgICAgICAN CiAgICAgICAgICAgICAgICAgICAgICAgICAgICAgICAgICAgICAgICAgICAgICAgICAgICAgICAgICAg ICAgICAgICAgICAgICAgICAgICAgICAgICAgICAgIC AgICAgICAgICANCjw/lKDlE4dwqNZofcV2P2loVb8CGq7JUL6gn9NjNVInLKfanvNzWvnXLpRoVGGoWi zMSjx4QUqmEL1FoBSgC4WmJ0PhTWhzMZ5NWGHfNEQpmYBrPCGfZMBiGvK2CGIhCYjiWG2WwCYtQYrtOP GgLSGpWkGhITSyCK0EXRZfT731ubJaOn8FSi9SNeUd IQ3ilg9WWqEvVNZcGykTGdi3LVovKK5BpDZsT7EzsCBrw2lTAfJcC4JAVOX3LYIcKy1NJWOyAnAbWVTg VUvtVH9hYOAkPZQThIuwysR4PJ2IUY1xqcNpKM8NFuEoXo0xSf1ZIdDhM7RjP3KbOBLfGLGVFMqpUY7G VUGyMOD4BCGaPPVkEGQERdYxX84iLE1IJ6Viy50pMh U4OIMxGbDdFBijRU91hSsopkAlbZVksWczFQ5MOw3+DQplbmRvYmoNCnhyZWYNCjAgMjINCjAwMDAwMD EdAKIrAdP7GvBsGt1CCJEqFTGiKTXnLbAiWNLlUTXzBHsfGJNwFFV9UJCrIQUgTXEzNO0NEvMoDDDaHe K2CPrhNSYyIBDllc5RRMBbNDIaRZH8ZiNeQPXeHKZo SZtbLTJjUMZaThacVDVyBFXhEO4RSqZjVDXdCTC2LqPqIAXnAJIdln9CRTSlSTRtTfR5AJMaZLVuKLId KQbrZPRyTQA8Tqv6HKQwEBEkLA2ROiNfNLCyQRieUUnsCXQbITDphd3IUKGsJGFtWzC6YDFfGHNnFPCm MIdeGCXvMOV1XoV0FQRsENSsBC3KQfHhDRYoCDl6VU RsGSFrTARfye0ANUDrZZPbBWazNXCcHPHxXXXpNVeaAKQmSUH9MYy4GXMmUMVeCP9TVfGnHUVhAIe7SZ IkDVCbWTMslk7HHDZdSTDzBPS0UrQbFPWpYBHyALicVUXpHGCiJqL1ZEMoATQoAX1VOmRyLDEbEPYoMy VjLRBdHZGhok2UZTCfFOAbTEMjRPBnFMFzINFdQSyl NNLwZJO4WBJ6ZGGqAIKzSV2EJtGnYVDiKyV7NZNrRMVrDVJzsp9AmNZlgGywgq7NOUwSJr0BbMwaYMZi JTtwYf8fzSBqCYWuHBACFe4AegOzIMIuXQQTIFnfYFDrSFaqLlkcWEZvTbXaJMtfT9DbBLUqNMGxLMS1 AbDaQHH5TdB3SSA2VBKrRBL9L2Y3YMSeIUZ4LeCcRU Z2AsKaT4D3Lbx+OW0fYFh+Uf4Bh3EyjiU8zgReKXqpETQxBX5FGKOUG8CTXs== Procedure Social History Code Duration Value Status Description Data Source(s ) Alcohol intake 06/15/2020 12:00:00 AM EST Never completed [facility] Smoking 06/15/2020 12:00:00 AM EST Former smoker completed Former smoker [facility] Smoking 05/14/2020 12:00:00 AM EDT Non Smoker completed Non Smoke r MEDENT ([facility], ) Vital Signs ID Date Data Source UNK Name Value Range Interpretation Code Description Data Source(s) Oxygen saturation in Arterial blood by Pulse oximetry 92 % 92 % [facility] Body mass index (BMI) [Ratio] 22.53 kg/m2 22.53 kg/m2 [facility] Body weight 71.215 kg 71.215 kg [facility] Body height 177.8 cm 177.8 cm [facility] Heart rate 78 /min 78 /min [facility] Diastolic blood pressure 60 mm[Hg] 60 mm[Hg] [facility] Systolic blood pressure 124 mm[Hg] 124 mm[Hg] [facility] Diastolic blood pressure 52 mm[Hg] 52 mm[Hg] [facility] Systolic blood pressure 110 mm[Hg] 110 mm[Hg] [facility] Oxygen saturation in Arterial blood by Pulse oximetry 96 % 96 % [facility] Body mass index (BMI) [Ratio] 22.38 kg/m2 22.38 kg/m2 [facility] Body weight 70.761 kg 70.761 kg [facility] Body height 177.8 cm 177.8 cm [facility] Heart rate 73 /min 73 /min [facility] Body weight 72.576 kg 72.576 kg [facility] [place] body weight 166 [lb_av] 166 [lb_av] MEDEN T ([facility], ) Body mass index (BMI) [Ratio] 23.0 kg/m2 23.0 k g/m2 MED[facility] ([facility], ) Body weight 160.00 [lb_av] 160.00 [lb_av] MEDEN T ([facility], ) Body height 70 [in_i] 70 [facility]i] [facility] 5'10" Oxygen saturation in Arterial blood by Pulse oximetry 97 % 97 % [facility] ([facility]) Room Air Heart rate 73 /min 73 /min [facility] ([facility]) Diastolic blood pressure 64 mm[Hg] 64 mm[Hg] [facility] ([facility]) Systolic blood pressure 118 mm[Hg] 118 mm[Hg] [facility] Body mass index (BMI) [Ratio] 22.2 kg/m2 22.2 k g/m2 [facility] Body height 70 [in_i] 70 [in_i] [facility] ([facility]) 5'10" Body weight 155.00 [lb_av] 155.00 [lb_av] MEDEN T ([facility], [facility]) Body temperature 97.2 [degF] 97.2 [degF] [facility] Oxygen saturation in Arterial blood by Pulse oximetry 98 % 98 % [facility] Respiratory rate 18 /min 18 /min [facility] ( [facility]) Heart rate 58 /min 58 /min [facility] ([facility], [facility]) Diastolic blood pressure 67 mm[Hg] 67 mm[Hg] [facility] ([facility], [facility]) Systolic blood pressure 111 mm[Hg] 111 mm[Hg] [facility] Body mass index (BMI) [Ratio] 22.2 kg/m2 22.2 k g/m2 [facility] Body height 70 [in_i] 70 [in_i] [facility] ([facility]) 5'10" Body weight 155.00 [lb_av] 155.00 [lb_av] MEDEN T ([facility], [facility]) Body temperature 98.2 [degF] 98.2 [degF] MED[facility] ([facility], [facility]) Respiratory rate 18 /min 18 /min [facility] ( [facility]) Heart rate 68 /min 68 /min [facility] ([facility], [facility]) Diastolic blood pressure 80 mm[Hg] 80 mm[Hg] [facility] ([facility], [facility]) Systolic blood pressure 134 mm[Hg] 134 mm[Hg] M EDENT ([facility], [facility]) Patient Treatment Plan of Care Planned Activity Planned Date Details Description Data Source (s) Simvastatin 40 MG Oral Tablet 06/28/2020 12:00:00 AM EST [facility] Betamethasone 0.5 MG/ML Topical Cream 06/20/2020 12:00:00 AM EST [facility] pantoprazole 40 MG Delayed Release Oral Tablet 06/05/2020 12:00:00 AM EST [facility] [facility] Doxycycline Monohydrate 50 MG Oral Tablet 05/08/2020 12:00:00 AM ED T [facility] Simvastatin 40 MG Oral Tablet 03/16/2020 12:00:00 AM EDT [facility] Cyclosporine 0.5 MG/ML Ophthalmic Suspension [Restasis ] 12/13/2019 12:00:00 AM EDT [facility] rivaroxaban 20 MG Oral Tablet 10/16/2019 12:00:00 AM EDT [facility]
[2020-09-02 19:43] VITALS: BP 114/54
[2020-09-02 20:20] VITALS: BP 108/52
[2020-09-02 20:38] VITALS: BP 139/64
[2020-09-02] MEDS ORDERED: SIMVASTATIN 40 MG TAB PO SCH (21:00)
[2020-09-02 21:23] LABS: HEMATOCRIT 30.8 % (42.0-52.0); HEMOGLOBIN 9.6 g/dl (13.5-17.5)
[2020-09-02] MEDS: MECLIZINE 12.5 MG TAB PO SCH (21:34)
[2020-09-02] MEDS ORDERED: FUROSEMIDE 20MG/2ML VIAL (J1940) IV ONE (23:00)
[2020-09-03 06:00] VITALS: BP 96/50
[2020-09-03] MEDS ORDERED: SODIUM CHLORIDE 0.9% 1000ML IV ONE (06:00)
[2020-09-03 06:19] LABS: HEMOGLOBIN 9.8 g/dl (13.5-17.5); MEAN CORPUSCULAR HEMOGLOBIN 33.3 pg (27.0-33.0); MEAN CORPUSCULAR HGB CONC 31.6 g/dl (32.0-36.5); MEAN CORPUSCULAR VOLUME 105.4 fl (80.0-96.0); PLATELET COUNT, AUTOMATED 205 10^3/uL (150-450); RED BLOOD COUNT 2.94 10^6/uL (4.30-6.10); WHITE BLOOD COUNT 7.5 10^3/uL (4.0-10.0)
[2020-09-03 06:44] LABS: ALBUMIN 2.9 GM/DL (3.2-5.2); ALT/SGPT 22 U/L (12-78); BILIRUBIN,TOTAL 1.2 MG/DL (0.2-1.0); BLOOD UREA NITROGEN 13 MG/DL (7-18); CALCIUM LEVEL 8.5 MG/DL (8.8-10.2); CARBON DIOXIDE LEVEL 32 MEQ/L (21-32); CHLORIDE LEVEL 104 MEQ/L (98-107); CREATININE FOR GFR 0.91 MG/DL (0.70-1.30); GLOMERULAR FILTRATION RATE > 60.0 (>35); GLUCOSE, FASTING 92 MG/DL (70-100); POTASSIUM SERUM 3.7 MEQ/L (3.5-5.1); SODIUM LEVEL 141 MEQ/L (136-145); TOTAL PROTEIN 6.3 GM/DL (6.4-8.2)
[2020-09-03 06:45] VITALS: BP 102/50
[2020-09-03] MEDS: MECLIZINE 12.5 MG TAB PO SCH (08:05)
[2020-09-03] MEDS ORDERED: TIMOLOL MALEATE 0.5% OPHTH SOLN 5 ML OU SCH (09:00)
[2020-09-03] MEDS ORDERED: ASCORBIC ACID 500 MG TAB PO SCH (09:00)
[2020-09-03] MEDS ORDERED: FERROUS SULFATE 325MG TAB PO SCH (09:00)
[2020-09-03] MEDS ORDERED: PANTOPRAZOLE 40MG TAB (PROTONIX) PO SCH (09:00)
[2020-09-03] MEDS ORDERED: ENOXAPARIN 40MG/0.4ML SYRINGE (J1650 PER 10MG) SC SCH (09:00)
--- NOTE | 2020-09-03 12:04 | DS.PDOC ---
Discharge Summary General Date of Admission Sep 02, 2020 at 19:04 Date of Discharge 09/03/20 Discharge Summary PROCEDURES PERFORMED DURING STAY: [None]. ADMITTING DIAGNOSES: Symptomatic anemia MDS (myelodysplastic syndrome) Aortic stenosis COPD (chronic obstructive pulmonary disease) Atrial fibrillation DISCHARGE DIAGNOSES: Symptomatic anemia MDS (myelodysplastic syndrome) Aortic stenosis COPD (chronic obstructive pulmonary disease) Atrial fibrillation COMPLICATIONS/CHIEF COMPLAINT: Mds/ Symptomatic Anemia. HISTORY OF PRESENT ILLNESS:Patient is 80 years old male with past history of MDS, COPD, atrial fibrillation, coronary artery diseases, aortic stenosis presented to the hospital with increased weakness and shortness of breath. Gloria nt stated that he is recently been diagnosed with MDS. For past few days he has been having increased shortness of breath on exertion, palpitations and weakness. Of note, On 05/28/2020 he was admitted through emergency room because of increasing weakness and was found to be severely anemic. Patient was admitted and was given 3 units of packed red cells. During that admission he underwent EGD and colonoscopy which were normal without any bleeding source. In ER patient was found to have white blood count 11.4, hemoglobin 8.8 CT chest was done and showed Diffuse interstitial fibrosis pattern unchanged from prior study HOSPITAL COURSE: During hospital stay the following issues addressed (1) Symptomatic anemia Secondary to MDS Patient received 2 units of blood in ER Follow-up with oncologist in the outpatient settings (2) MDS (myelodysplastic syndrome) Follow-up with oncologist in the outpatient settings (3) Aortic stenosis Patient will have appointment in [place] in 2 weeks to discuss aortic valve repair (4) COPD (chronic obstructive pulmonary disease) Not in acute exacerbation Continue home inhalers (5) Atrial fibrillation Heart rate is under control Patient was not on the anticoagulation, AC was stopped due to anemia I will defer to start anticoagulation due to his first coat operator Dr Bryan DISCHARGE MEDICATIONS: Please see below. ALLERGIES: Please see below. PHYSICAL EXAMINATION ON DISCHARGE: VITAL SIGNS: Please see below. Objective: GENERAL APPEARANCE: NAD HEENT: no scleral icterus, no JVD, EOMI CARDIOVASCULAR: S1S2 LUNGS: CTA ABDOMEN: soft & not tender w palpitation MUSCULOSKELETAL: no cyanosis, no swelling INTEGUMENT: no generalized pallor NEUROLOGICAL: cranial nerve function from 2-12 intact intact, follows commands, speech not dysarthric LABORATORY DATA: Please see below. PROGNOSIS: Fair ACTIVITY: [As tolerated]. DIET: Regular DISPOSITION: Home ITEMS TO FOLLOWUP ON ON OUTPATIENT: Follow-up with first coat operator, PCP and oncologist DISCHARGE CONDITION: [Stable]. TIME SPENT ON DISCHARGE: 25 minutes. Vital Signs/I&Os Vital Signs Date Time Temp Pulse Resp B/P (MAP) Pulse Ox O2 Delivery O2 Flow Rate FiO2 09/03/20 06:45 102/50 (67) 09/03/20 06:00 97.2 87 16 96 Room Air I&O- Last 24 Hours up to 6 AM 09/03/20 06:00 Intake Total 700 ml Output Total 200 ml Balance 500 ml Laboratory Data Labs 24H Laboratory Tests 2 09/02/20 16:49: Nucleated Red Blood Cells % (auto) 0.0, Anion Gap 10, Glomerular Filtration Rate > 60.0, Calcium Level 7.9L, Total Creatine Kinase 35L, Creatine Kinase MB < 1.0, Creatine Kinase MB Relative Index 2.86, Troponin I 0.02 09/02/20 18:03: Coronavirus (COVID-19)(PCR) NEGATIVE, Influenza Type A (RT-PCR) NEGATIVE, Influenza Type B (RT-PCR) NEGATIVE, Respiratory Syncytial Virus (PCR) NEGATIVE 09/03/20 05:26: Nucleated Red Blood Cells % (auto) 0.0, Anion Gap 5L, Glomerular Filtration Rate > 60.0, Calcium Level 8.5L, Magnesium Level 2.0, Total Bilirubin 1.2H, Aspart ate Amino Transf (AST/SGOT) 18, Alanine Aminotransferase (ALT/SGPT) 22, Alkaline Phosphatase 97, Total Protein 6.3L, Albumin 2.9L, Albumin/Globulin Ratio 0.9 CBC/BMP Laboratory Tests 09/02/20 16:49 09/02/20 21:18 09/03/20 05:26 Discharge Medications Scheduled Ascorbic Acid (Ascorbic Acid) 500 Mg Tablet, 500 MG PO DAILY, (Reported) Calcium Carbonate/Vitamin D3 (Calcium 500-Vit D3 200 Tablet) 1 Each Tablet, 1 TAB PO DAILY, (Reported) Cholecalciferol (Vitamin D3) (Vitamin D3) 1,000 Unit Tablet, 1,000 UNITS PO DAILY, (Reported) Cyclosporine (Restasis) 0.05% Droperette, 1 DROP OU BID, (Reported) Doxycycline Monohydrate (Doxycycline Monohydrate) 50 Mg Tablet, 50 MG PO DAILY, (Reported) Ferrous Sulfate (Ferrous Sulfate) 325 Mg Tablet, 325 MG PO DAILY, (Reported) Gluc Gramajo/Chondro Gramajo A/Vit C/Mn (Glucosamine Chondroitin Tab) 1 Each Tablet, 1 TAB PO DAILY, (Reported) Meclizine HCl (Meclizine HCl) 12.5 Mg Tablet, 12.5 MG PO TID, (Reported) Multivitamins (Thera M Plus Tablet) 1 Each Tablet, 1 TAB PO DAILY, (Reported) Niacin (Inositol Niacinate) (Niacin 500 mg Capsule) 500 Mg Capsule, 1 CAP PO DAILY, (Reported) Keyport-3 Fatty Acids (Keyport-3) 1,000 Mg Capsule, 1,000 MG PO DAILY, (Reported) Pantoprazole Sodium (Pantoprazole Sodium) 40 Mg Tablet.dr, 40 MG PO DAILY, (Reported) Simvastatin (Simvastatin) 40 Mg Tablet, 40 MG PO QHS, (Reported) Timolol Maleate (Timolol Maleate) 0.5% 5ML Drops, 1 DROP OU DAILY, (Reported) Miscellaneous Medications [Patient Comment] , (Reported) PATIENT TOOK SOME OF HIS MEDICATIONS, BUT NOT ALL AND IS UNSURE WHICH HE TOOK Allergies Coded Allergies: No Known Allergies (Unverified , 11/17/18) LINDA ROMERO DO Sep 03, 2020 12:04
--- NOTE | 2020-09-04 07:11 | ECGEPIP ---
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
== END 2020-09-03 12:30 | disposition home or self-care (01) ==
LOC: M ED 16:29 → M ED INP 19:04 → ENRESERV 19:29 → M MSPAV 20:39
PROVIDERS: ADMIT Internal Medicine; ATTEND Internal Medicine
DX: D64.9 Anemia, unspecified (principal); D46.9 Myelodysplastic syndrome, unspecified; I35.0 Nonrheumatic aortic (valve) stenosis; J44.9 Chronic obstructive pulmonary disease, unspecified; I48.91 Unspecified atrial fibrillation; I25.10 Atherosclerotic heart disease of native coronary artery without angina pectoris; R53.1 Weakness; Z79.899 Other long term (current) drug therapy; Z87.891 Personal history of nicotine dependence
CPT/HCPCS: 36415; 36430; 71045; 80048; 80053; 82550; 82553; 83735; 84484; 85014; 85018; 85027; 86850; 86900; 86901; 86920; 87631; 93005; 93041; 94760; 96372; 96374; 96375; 99285; G0378; J1650; J1940; P9016

== ENCOUNTER → 2020-09-26 10:20 | Outpatient (RCR) | payer MEDICARE ==
[2020-08-16 14:36] VITALS: BP 116/64
--- NOTE | 2020-08-16 17:56 | MEDONCPDOC ---
Medical Oncology Office Note Date of Service: Aug 16, 2020 Diagnosis/Treatment History Reason for consultation: Recurrent severe anemia requiring blood transfusion Interval History History of present illness: I had the pleasure of seeing Mr. Randall Menendez in consultation for severe anemia requiring blood transfusion. As you know Mr. 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 He has multiple comorbidities including COPD hypertension, paroxysmal atrial fibrillation, glaucoma, coronary artery disease as well as aortic stenosis. On 05/28/2020 he was admitted through emergency room because of increasing weakness and was found to be severely anemic. Patient was admitted and was given 3 units of packed red cells. During that admission he underwent EGD and pleuroscopy which were normal without any bleeding source. He has been feeling dizzy and weak although he never noticed any blood in the stools or black stools. He was discharged home once he started feeling better and hemoglo bin came up. He came back to emergency room on June and was again found to be severely anemic and admitted for 2 days and was given 2 units of packed red cells. Iron profile was normal on May 2020 labs and folate and vitamin B12 were also normal although he had high MCV. He was suspected to have myelodysplastic syndrome and is being seen for the first time for its evaluation. Currently patient is feeling better. He was seen by Dr. Bryan office couple of days ago and is referred to [facility] cardiology for further evaluation. Since he has recurrent low hemoglobin he is here for further evaluation. He denies any bleeding source. Since iron level has been normal with normal vitamin B12 and folate. He has COPD and his effort tolerance is limited because of increasing shortness of breath on mild exertion. He can walk a block with slow pace although he feels angina and pressure on lifting heavy weights. He never had cardiac catheterization or coronary artery bypass surgery. He is not a known diabetic or hypertensive. He is eating well and denies nausea vomiting abdominal pain or diarrhea. He does not have headache although he feels disease off-and-on. He does not have blackouts. He denies any urinary complaint at this moment. Allergies Coded Allergies: No Known Allergies (Unverified , 11/17/18) Home Medications Reported Medications Niacin (Inositol Niacinate) (Niacin 500 mg Capsule) 500 Mg Capsule, 1 CAP PO DAILY for 30 Days, #30 CAP 08/16/20 Ferrous Sulfate (Ferrous Sulfate) 325 Mg Tablet, 325 MG PO DAILY, TAB 08/09/20 Pantoprazole Sodium (Pantoprazole Sodium) 40 Mg Tablet.dr, 40 MG PO DAILY, TAB 08/09/20 Cyclosporine (Restasis) 0.05% Droperette, 1 DROP OU BID 05/28/20 Simvastatin (Simvastatin) 40 Mg Tablet, 40 MG PO QHS 05/28/20 Meclizine HCl (Meclizine HCl) 12.5 Mg Tablet, 12.5 MG PO TID, TAB 05/28/20 Gluc Gramajo/Chondro Gramajo A/Vit C/Mn (Glucosamine Chondroitin Tab) 1 Each Tablet, 1 TAB PO DAILY, TAB 05/28/20 Multivitamins (Thera M Plus Tablet) 1 Each Tablet, 1 TAB PO DAILY, TAB 05/28/20 Cholecalciferol (Vitamin D3) (Vitamin D3) 1,000 Unit Tablet, 1000 UNITS PO DAILY, TAB 05/28/20 Calcium Carbonate/Vitamin D3 (Calcium 500-Vit D3 200 Tablet) 1 Each Tablet, 1 TAB PO DAILY, TAB 05/28/20 Ascorbic Acid (Ascorbic Acid) 500 Mg Tablet, 500 MG PO DAILY, TAB 05/28/20 Doxycycline Monohydrate (Doxycycline Monohydrate) 50 Mg Tablet, 50 MG PO DAILY, TAB 05/28/20 [place]-3 Fatty Acids ([place]-3) 1,000 Mg Capsule, 1000 MG PO DAILY, CAP 05/28/20 Timolol Maleate (Timolol Maleate) 0.5% 5ML Drops, 1 DROP OU DAILY 05/28/20 Discontinued Reported Medications [Patient Comment] No Conflict Check PATIENT IS NOT A GOOD HISTORIAN. COMPLETED WITH EXTERNAL MED HISTORY IN ADDITION TO PHONE CALL WITH PATIENT. 05/28/20 Past Medical History Past Medical History: Past medical history is significant for COPD, atrial fibrillation, coronary artery disease, aortic stenosis. Past Surgical History: History of cholecystectomy 6 years ago. Carpal tunnel surgery Family History: Patient one sister of lung cancer stage IV. One brother of diabetic complications. 2 sisters are alive and are doing well. Father of Parkinson's disease and at the age of 98. Mother passed be due to old age. 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 Used to smoke and has 20 pack year history although he quit in July 2069. Denies any drug abuse. He himself has no kids but his has 3 kids from previous marriage. They have for 60 years. Review of Systems General: Reports: Fatigue (please be candidate out on mild exertion); Denies: ROS Unobtainable, Chills, Night Sweats, Malaise, Normal Appetite, Other Symptoms Constitutional: Reports: Weakness (weakness and fatigue), Fatigue (50 is really cannot walk long distances); Denies: ROS Unabtainable, Chills, Fever, Malaise, Night Sweats, Weight Loss, Lethargy, Normal appetite, Other symptoms Eyes: Denies: Pain, Vision change, Conjunctivae inflammation, Eyelid inflammation, Redness, Other HEENT: Denies: Head Aches, Ear Pain, Dysphagia, Sinus Congestion, Post Nasal Drip, Sore Throat, Epistaxis, Other Symptoms Skin: Denies: Rash, Lesions, Jaundice, Bruising, Other Pulmonary: Reports: Dyspnea (shortness of breath on mild exertion due to COPD); Denies: Cough, Pleuritic Chest Pain, Other Symptoms Cardiovascular: Reports: Chest Pain (chest pain on exertion and lifting heavy weights), Palpitations (patient has atrial fibrillation which is paroxysmal.), Paroxysmal Noc. Dyspnea (no cranial); Denies: Orthopnea, Edema, Lt Headedness, Other Symptoms Breast: Denies: New Breast Lumps / Masses, Nipple Retraction, Nipple Discharge, Breast Skin Changes, Breast Pain or Tenderness, Other Breast Complaints Gastrointestinal: Denies: Nausea, Vomiting, Abdominal Pain, Diarrhea, Constipation, Melena, Hematochezia, Other Symptoms Genitourinary: Denies: Dysuria, Frequency, Incontinence, Hematuria, Retention, Other Symptoms Hematologic: Denies: Bruising, Bleeding Excessively, Petecchia, Purpura, Enlarged Lymph Nodes, Other Hematologic Endocrine: Denies: Polydipsia, Polyphagia, Polyuria, Heat Intolerance, Cold Intolerance, Other Endocrine Sx Musculoskeletal: Denies: Neck pain, Shoulder pain, Arm pain, Back pain, Hand pain, Leg pain, Foot pain, Joint pain, Muscle pain, Spasms, Gout, Joint sweling, Muscle stiffness, Midthoracic pain, Other Neurological: Denies: Weakness, Numbness, Incoordination, Change in Speech, Confusion, Seizures, Other Symptoms Psych: Denies: Mood Normal, Anxiety, Depression, Memory Issues, Thoughts of Self Harm, Anger, Thoughts of harming Other, Other Psych Physical Examination General Exam: Negative: Alert, Cooperative, No Acute Distress, Mild Distress, Moderate Distress, Severe Distress, Oriented Times Three, Other Eye Exam: Negative: PERRLA, Conjunctiva & lids normal, EOMI, Sclera icteric, Ptosis, Other Eye Symptoms ENT EXAM: Positive: Other ENT (on your hard of hearing); Negative: Atraumatic, Mucous membr. moist/pink, Pharynx Normal, Tongue Midline, Pharyngeal Edema, Nares Patent, Tympanic Membranes Normal, Ext Auditory Canal Nml, Pinna Normal Neck Exam: Negative: Supple, JVD, Thyromegaly, +2 carotid pulse wo bruit, Lymphadenopathy, Other Chest Exam: Negative: Clear to auscultation, Normal air movement, Rales, Rhonchi, Wheezing, Diminished, Other Heart Exam: Positive: Murmurs (ejection systolic murmur at the aortic area); Negative: Rate Normal, Tachycardic, Bradycardic, Regular Rhythm, Irregular Rhythm, Normal S1, Normal S2, Gallops, Rubs, Other Breast Exam: Negative: Symmetric Bilaterally, Lumps or Masses, Nipple Retraction, Nipple Discharge, Skin Changes, Other Breast Findings Abdomen Exam: Negative: Normal bowel sounds, BS Hyperactive, BS Hypoactive, Soft, Tenderness, Hepatospenomegaly, Mass, Hernia, Other Extremity Exam: Negative: Clubbing, Cyanosis, Edema, Normal pulses, Tenderness, Swelling, Other Skin Exam: Negative: Nl turgor and temperature, Rash, Breakdown, Lesion, Pruritus, Other skin issue Neuro Exam: Negative: Normal Gait, Normal Speech, Strength at 5/5 X4 ext, Normal Tone, Sensation Intact, Cranial Nerves 3-12 NL, Reflexes 2+, Other Psych Exam: Negative: Mental status NL, Mood NL, Anxiety, Memory Intact, Oriented x 3, Other Ht / Wt Ht / Wt Height:5 Feet 10 Inches Weight: Kg Vital Signs Vital Signs Date Time Temp Pulse Resp B/P (MAP) Pulse Ox O2 Delivery O2 Flow Rate FiO2 08/16/20 14:36 97.3 68 16 116/64 (81) 97 Room Air Laboratory Data Laboratory Tests Test 08/09/20 11:30 08/10/20 06:32 08/11/20 05:27 Blood Urea Nitrogen 13 MG/DL (7-18) 13 MG/DL (7-18) 13 MG/DL (7-18) Creatinine 0.85 MG/DL (0.70-1.30) 0.96 MG/DL (0.70-1.30) 0.92 MG/DL (0.70-1.30) Glomerular Filtration Rate > 60.0 (>35) > 60.0 (>35) > 60.0 (>35) Fasting Glucose 91 MG/DL (70-100) 86 MG/DL (70-100) 86 MG/DL (70-100) Calcium Level 9.1 MG/DL (8.8-10.2) 9.1 MG/DL (8.8-10.2) 8.4 MG/DL (8.8-10.2) L Sodium Level 141 MEQ/L (136-145) 141 MEQ/L (136-145) 144 MEQ/L (136-145) Potassium Level 4.3 MEQ/L (3.5-5.1) 4.4 MEQ/L (3.5-5.1) 4.0 MEQ/L (3.5-5.1) Chloride Level 104 MEQ/L (98-107) 105 MEQ/L (98-107) 109 MEQ/L (98-107) H Carbon Dioxide Level 28 MEQ/L (21-32) 28 MEQ/L (21-32) 27 MEQ/L (21-32) Anion Gap 9 MEQ/L (8-16) 8 MEQ/L (8-16) 8 MEQ/L (8-16) Assessment/Plan Mr. Menendez is an 80-year-old white gentleman who has been admitted twice because of severe anemia and has been transfused 5 units of blood during last 2 admissions. He also has coronary artery disease and aortic stenosis and is being considered for referral to [facility]. He has high MCV and normal vitamin B12 and folate and iron profile. He is highly likely to have myelodysplasia for which we need to do bone marrow aspiration and biopsy. He was told about myelodysplasia and its other possibilities including myeloproliferative disorder myelofibrosis although less likely. We'll arrange a bone marrow aspiration and biopsy in near future. I reviewed all the labs which were done during recent admission and iron profile including vitamin B12 and folate were normal. He had blood work and Dr. Bryan's office this couple of days ago so we are not going to draw blood today. We will arrange a bone marrow aspiration and biopsy as soon as feasible and then 2 weeks after that for see him back to finalize the decision making. We will make a standing order for a CBC on weekly basis and if hemoglobin goes down around 8 he will be getting transfusion as he has coronary artery disease and we want to keep hemoglobin on the higher side. I talked to the patient and his and they understand about myelodysplasia and asked many questions which were answered to their satisfaction. CC TO: CC TO: Primary Care Provider: Jabari Connor, Dr. Bryan Referring Provider: EREN TORRES MD Aug 16, 2020 17:56
[2020-08-23 13:55] LABS: BASO # 0.1 10^3/uL (0.0-0.2); BASO % 1.6 % (0.0-1.0); EOS # 0.1 10^3/uL (0.0-0.5); EOS % 1.7 % (0.0-3.0); HEMATOCRIT 33.6 % (42.0-52.0); HEMOGLOBIN 10.5 g/dl (13.5-17.5); LYMPH # 0.6 10^3/uL (1.5-5.0); LYMPH % 8.7 % (24.0-44.0); MEAN CORPUSCULAR HEMOGLOBIN 33.4 pg (27.0-33.0); MEAN CORPUSCULAR HGB CONC 31.3 g/dl (32.0-36.5); MONO # 2.8 10^3/uL (0.0-0.8); MONO % 43.4 % (0.0-5.0); NEUTROPHILS # 2.6 10^3/uL (1.5-8.5); PLATELET COUNT, AUTOMATED 151 10^3/uL (150-450); RED BLOOD COUNT 3.14 10^6/uL (4.30-6.10)
[2020-08-23 14:05] LABS: WHITE BLOOD COUNT 6.3 10^3/uL (4.0-10.0)
[2020-08-29 09:41] VITALS: BP 118/65
[2020-08-29 09:48] LABS: BASO # 0.1 10^3/uL (0.0-0.2); BASO % 1.7 % (0.0-1.0); EOS # 0.1 10^3/uL (0.0-0.5); EOS % 1.2 % (0.0-3.0); HEMATOCRIT 31.5 % (42.0-52.0); HEMOGLOBIN 9.8 g/dl (13.5-17.5); LYMPH % 12.5 % (24.0-44.0); MEAN CORPUSCULAR HEMOGLOBIN 33.4 pg (27.0-33.0); MEAN CORPUSCULAR HGB CONC 31.1 g/dl (32.0-36.5); MEAN CORPUSCULAR VOLUME 107.5 fl (80.0-96.0); MONO # 2.5 10^3/uL (0.0-0.8); MONO % 33.2 % (0.0-5.0); NEUTROPHILS # 3.4 10^3/uL (1.5-8.5); NEUTROPHILS % 44.2 % (36.0-66.0); PLATELET COUNT, AUTOMATED 180 10^3/uL (150-450); RED BLOOD COUNT 2.93 10^6/uL (4.30-6.10)
[2020-08-29 09:49] LABS: WHITE BLOOD COUNT 7.6 10^3/uL (4.0-10.0)
--- NOTE | 2020-08-29 10:35 | MEDONCPN ---
Date/Time of Procedure Date of Procedure: Aug 29, 2020 Time of Procedure: 10:00 [facility] Procedure Note BONE MARROW ASPIRATE AND BIOPSY: INDICATION: After signed and informed consent was obtained, the patient was placed in the left lateral position. The right] posterior iliac crest was located and prepped and draped in a sterile fashion with Betadine and alcohol. Lidocaine was injected for local anesthesia. A Jamshidi needle was introduced and a bone marrow aspirate was obtained followed by a core biopsy. Spicules were identified n the aspirate specimen. Pressure was applied until homeostasis was achieved. A sterile pressure dressing was applied. The patient tolerated the procedure well with no apparent complications. Estimated blood loss was minimal. Specimens were sent to pathology. Followup: 10-14 days. EREN TORRES MD Aug 29, 2020 10:35
[2020-09-05 11:35] LABS: BASO # 0.2 10^3/uL (0.0-0.2); BASO % 2.3 % (0.0-1.0); EOS # 0.1 10^3/uL (0.0-0.5); HEMATOCRIT 32.6 % (42.0-52.0); HEMOGLOBIN 10.1 g/dl (13.5-17.5); LYMPH # 0.9 10^3/uL (1.5-5.0); MEAN CORPUSCULAR HEMOGLOBIN 33.2 pg (27.0-33.0); MEAN CORPUSCULAR VOLUME 107.2 fl (80.0-96.0); NEUTROPHILS # 4.1 10^3/uL (1.5-8.5); NEUTROPHILS % 51.7 % (36.0-66.0); PLATELET COUNT, AUTOMATED 220 10^3/uL (150-450); RED BLOOD COUNT 3.04 10^6/uL (4.30-6.10)
[2020-09-12 10:02] VITALS: BP 129/49
[2020-09-12 10:18] LABS: BASO # 0.1 10^3/uL (0.0-0.2); BASO % 1.9 % (0.0-1.0); EOS # 0.1 10^3/uL (0.0-0.5); EOS % 2.7 % (0.0-3.0); HEMOGLOBIN 10.3 g/dl (13.5-17.5); LYMPH # 0.6 10^3/uL (1.5-5.0); LYMPH % 16.8 % (24.0-44.0); MEAN CORPUSCULAR HEMOGLOBIN 33.4 pg (27.0-33.0); MEAN CORPUSCULAR HGB CONC 31.2 g/dl (32.0-36.5); MEAN CORPUSCULAR VOLUME 107.1 fl (80.0-96.0); MONO # 0.7 10^3/uL (0.0-0.8); MONO % 19.1 % (2.0-8.0); NEUTROPHILS # 1.9 10^3/uL (1.5-8.5); NEUTROPHILS % 50.7 % (36.0-66.0); PLATELET COUNT, AUTOMATED 201 10^3/uL (150-450); RED BLOOD COUNT 3.08 10^6/uL (4.30-6.10); WHITE BLOOD COUNT 3.8 10^3/uL (4.0-10.0)
--- NOTE | 2020-09-12 17:38 | MEDONCPDOC ---
Medical Oncology Office Note Date of Service: Sep 12, 2020 Diagnosis/Treatment History Current diagnosis: Myelodysplastic syndrome with anemia and leukopenia. 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 He is 80-year-old gentleman who has multiple comorbidities including COPD hypertension, paroxysmal atrial fibrillation, glaucoma, CAD and aortic stenosis. He was admitted on May 2020 with severe anemia and was transfused with 2 units of packed red cells. EGD and colonoscopy were normal without any bleeding. He was discharged home but he came back on 07/09/2020 and was found to be sedated anemic and was given 2 more units of packed red cells. Iron profile was normal and folate and B12 was also normal although he had high MCV. Patient was initially seen on generally 03/08/2021 and underwent bone marrow aspiration and biopsy on August 2020. He is coming to find either decision making. Interval History Randall is coming today for a follow-up visit. He is feeling better and hemoglobin is still up at 10.3. Patient bone marrow aspiration and biopsy was thoroughly checked and patient was found to have myelodysplasia without any evid ence of increased blast or non-Hodgkin lymphoma. 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 Back flow cytometry showed that phenotype of myelomonocytic precursors were normal. FISH testing for BCR ABL was also normal. There were 9% sideroblast. There was dysplastic changes in neutrophil maturation as well as dysplastic red cells with leukocytes and target cells. Rare circulating blasts was also noted. Patient is considered to have myelodysplasia and has been anemic and has been blood transfusion dependent. His monocytes are coming down so I would not entertain final diagnoses as CMML0 rather we'll consider as myelodysplasia with multilineage dyspoiesis. He rec eived 2 units of packed red cells on August as he ended up in emergency room. He was discharged home on August. We need to start him on treatment. We will check out erythropoietin level today. If erythropoietin level is less than 500 patient will be started on recombinant erythropoietin 40,000 units subcutaneous on weekly basis. We may add G-CSF with erythropoietin. If patient is found to have high erythropoietin more than 500 mU/mL patient will be started on luspetercept-aamt or azacitidine IV or by mouth. Allergies Coded Allergies: No Known Allergies (Unverified , 11/17/18) Home Medications Reported Medications [Patient Comment] No Conflict Check PATIENT TOOK SOME OF HIS MEDICATIONS, BUT NOT ALL AND IS UNSURE WHICH HE TOOK 09/02/20 Niacin (Inositol Niacinate) (Niacin 500 mg Capsule) 500 Mg Capsule, 1 CAP PO DAILY for 30 Days, #30 CAP 08/16/20 Ferrous Sulfate (Ferrous Sulfate) 325 Mg Tablet, 325 MG PO DAILY, TAB 08/09/20 Pantoprazole Sodium (Pantoprazole Sodium) 40 Mg Tablet.dr, 40 MG PO DAILY, TAB 08/09/20 Cyclosporine (Restasis) 0.05% Droperette, 1 DROP OU BID 05/28/20 Simvastatin (Simvastatin) 40 Mg Tablet, 40 MG PO QHS 05/28/20 Meclizine HCl (Meclizine HCl) 12.5 Mg Tablet, 12.5 MG PO TID, TAB 05/28/20 Gluc Gramajo/Chondro Gramajo A/Vit C/Mn (Glucosamine Chondroitin Tab) 1 Each Tablet, 1 TAB PO DAILY, TAB 05/28/20 Multivitamins (Thera M Plus Tablet) 1 Each Tablet, 1 TAB PO DAILY, TAB 05/28/20 Cholecalciferol (Vitamin D3) (Vitamin D3) 1,000 Unit Tablet, 1000 UNITS PO DAILY, TAB 05/28/20 Calcium Carbonate/Vitamin D3 (Calcium 500-Vit D3 200 Tablet) 1 Each Tablet, 1 TA B PO DAILY, TAB 05/28/20 Ascorbic Acid (Ascorbic Acid) 500 Mg Tablet, 500 MG PO DAILY, TAB 05/28/20 Doxycycline Monohydrate (Doxycycline Monohydrate) 50 Mg Tablet, 50 MG PO DAILY, TAB 05/28/20 Bergoo-3 Fatty Acids (Bergoo-3) 1,000 Mg Capsule, 1000 MG PO DAILY, CAP 05/28/20 Timolol Maleate (Timolol Maleate) 0.5% 5ML Drops, 1 DROP OU DAILY 05/28/20 Past Medical History Past Medical History: Past medical history is significant for COPD, atrial fibrillation, coronary artery disease, aortic stenosis. Past Surgical History: History of cholecystectomy 6 years ago. Carpal tunnel surgery Family History: Patient one sister of lung cancer stage IV. One brother of diabetic complications. 2 sisters are alive and are doing well. Father of Parkinson's disease and at the age of 98. Mother passed be due to old age. 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 Used to smoke and has 20 pack year history although he quit in July 2069. Denies any drug abuse. He himself has no kids but his has 3 kids from previous marriage. They have for 60 years. Review of Systems General: Reports: Fatigue (please be candidate out on mild exertion); Denies: ROS Unobtainable, Chills, Night Sweats, Malaise, Normal Appetite, Other Symptoms Constitutional: Reports: Weakness (weakness and fatigue), Fatigue (50 is really cannot walk long distances); Denies: ROS Unabtainable, Chills, Fever, Malaise, Night Sweats, Weight Loss, Lethargy, Normal appetite, Other symptoms Eyes: Denies: Pain, Vision change, Conjunctivae inflammation, Eyelid inflammation, Redness, Other HEENT: Denies: Head Aches, Ear Pain, Dysphagia, Sinus Congestion, Post Nasal Drip, Sore Throat, Epistaxis, Other Symptoms Skin: Denies: Rash, Lesions, Jaundice, Bruising, Other Pulmonary: Reports: Dyspnea (shortness of breath on mild exertion due to COPD); Denies: Cough, Pleuritic Chest Pain, Other Symptoms Cardiovascular: Reports: Chest Pain (chest pain on exertion and lifting heavy weights), Palpitations (patient has atrial fibrillation which is paroxysmal.), Paroxysmal Noc. Dyspnea (no cranial); Denies: Orthopnea, Edema, Lt Headedness, Other Symptoms Breast: Denies: New Breast Lumps / Masses, Nipple Retraction, Nipple Discharge, Breast Skin Changes, Breast Pain or Tenderness, Other Breast Complaints Gastrointestinal: Denies: Nausea, Vomiting, Abdominal Pain, Diarrhea, Constipation, Melena, Hematochezia, Other Symptoms Genitourinary: Denies: Dysuria, Frequency, Incontinence, Hematuria, Retention, Other Symptoms Hematologic: Denies: Bruising, Bleeding Excessively, Petecchia, Purpura, Enlarged Lymph Nodes, Other Hematologic Endocrine: Denies: Polydipsia, Polyphagia, Polyuria, Heat Intolerance, Cold Intolerance, Other Endocrine Sx Musculoskeletal: Denies: Neck pain, Shoulder pain, Arm pain, Back pain, Hand pain, Leg pain, Foot pain, Joint pain, Muscle pain, Spasms, Gout, Joint sweling, Muscle stiffness, Midthoracic pain, Other Neurological: Denies: Weakness, Numbness, Incoordination, Change in Speech, Confusion, Seizures, Other Symptoms Psych: Denies: Mood Normal, Anxiety, Depression, Memory Issues, Thoughts of Self Harm, Anger, Thoughts of harming Other, Other Psych Physical Examination ECOG PERFORMANCE STATUS: 2 General Exam: Negative: Alert, Cooperative, No Acute Distress, Mild Distress, Moderate Distress, Severe Distress, Oriented Times Three, Other Eye Exam: Negative: PERRLA, Conjunctiva & lids normal, EOMI, Sclera icteric, Ptosis, Other Eye Symptoms ENT EXAM: Positive: Other ENT (on your hard of hearing); Negative: Atraumatic, Mucous membr. moist/pink, Pharynx Normal, Tongue Midline, Pharyngeal Edema, Nares Patent, Tympanic Membranes Normal, Ext Auditory Canal Nml, Pinna Normal Neck Exam: Negative: Supple, JVD, Thyromegaly, +2 carotid pulse wo bruit, Lymphadenopathy, Other Chest Exam: Negative: Clear to auscultation, Normal air movement, Rales, Rhonchi, Wheezing, Diminished, Other Heart Exam: Positive: Murmurs (ejection systolic murmur at the aortic area); Negative: Rate Normal, Tachycardic, Bradycardic, Regular Rhythm, Irregular Rhythm, Normal S1, Normal S2, Gallops, Rubs, Other Breast Exam: Negative: Symmetric Bilaterally, Lumps or Masses, Nipple Retraction, Nipple Discharge, Skin Changes, Other Breast Findings Abdomen Exam: Negative: Normal bowel sounds, BS Hyperactive, BS Hypoactive, Soft, Tenderness, Hepatospenomegaly, Mass, Hernia, Other Extremity Exam: Negative: Clubbing, Cyanosis, Edema, Normal pulses, Tenderness, Swelling, Other Skin Exam: Negative: Nl turgor and temperature, Rash, Breakdown, Lesion, Pruritus, Other skin issue Neuro Exam: Negative: Normal Gait, Normal Speech, Strength at 5/5 X4 ext, Normal Tone, Sensation Intact, Cranial Nerves 3-12 NL, Reflexes 2+, Other Psych Exam: Negative: Mental status NL, Mood NL, Anxiety, Memory Intact, Oriented x 3, Other Ht / Wt Ht / Wt Height:5 Feet 10 Inches Weight: 71.000 Kg Vital Signs Vital Signs Date Time Temp Pulse Resp B/P (MAP) Pulse Ox O2 Delivery O2 Flow Rate FiO2 09/12/20 10:02 97.2 76 18 129/49 (75) 95 Room Air Laboratory Data Laboratory Tests 09/12/20 09:52 Assessment/Plan Mr. 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 Bone marrow has shown managing sideroblasts and would iron stores. He has been blood transfusion dependent and last transfusion was done on 09/02/2020. Today we are going to draw an erythropoietin level and if it is more than 500 MU per mL he will be candidate for azacitidine treatment or luspatercept. I discussed with the patient in detail and was told about the plan. At least half an hour was spent with the patient and his discussing the pros and cons of treatment. He was told that if it works he is going to stay on that treatment as long as it is working. But we have to at least give 2 months of therapy before we see a difference. Patient was told that about 30% patient responded to this therapy majority don't. He agrees to proceed and blood has been drawn for erythropoietin level. We'll see him back in a week once we have the results of erythropoietin level back for further decision making. CC TO: CC TO: Primary Care Provider: Jabari Connor, Dr. Bryan Referring Provider: EREN TORRES MD Sep 12, 2020 10:53
[2020-09-19 15:21] VITALS: BP 114/69
[2020-09-19 15:43] LABS: BASO # 0.1 10^3/uL (0.0-0.2); BASO % 2.1 % (0.0-1.0); EOS # 0.1 10^3/uL (0.0-0.5); EOS % 2.1 % (0.0-3.0); HEMATOCRIT 30.4 % (42.0-52.0); HEMOGLOBIN 9.4 g/dl (13.5-17.5); LYMPH # 0.9 10^3/uL (1.5-5.0); LYMPH % 16.1 % (24.0-44.0); MEAN CORPUSCULAR HEMOGLOBIN 33.6 pg (27.0-33.0); MEAN CORPUSCULAR HGB CONC 30.9 g/dl (32.0-36.5); MEAN CORPUSCULAR VOLUME 108.6 fl (80.0-96.0); MONO # 1.3 10^3/uL (0.0-0.8); MONO % 24.6 % (2.0-8.0); NEUTROPHILS # 2.8 10^3/uL (1.5-8.5); NEUTROPHILS % 51.5 % (36.0-66.0); PLATELET COUNT, AUTOMATED 149 10^3/uL (150-450); WHITE BLOOD COUNT 5.3 10^3/uL (4.0-10.0)
--- NOTE | 2020-09-19 17:58 | MEDONCPDOC ---
Medical Oncology Office Note Date of Service: Sep 19, 2020 Diagnosis/Treatment History Current diagnosis: Myelodysplastic syndrome with anemia and leukopenia. Hematopathology consultation from [facility] chronic myelomonocytic leukemia0 (CMML-0) although this cytometry revealed mildly low monocytic precursors are normal. Final diagnosis was made as monocytosis, macrocytic anemia and dysmyelopoiesis Recent history: Randall was initially seen 08/16/2020 for his chronic anemia. He is 80-year-old gentleman who has multiple comorbidities including COPD hypertension, paroxysmal atrial fibrillation, glaucoma, CAD and aortic stenosis. He was admitted on May 2020 with severe anemia and was transfused with 2 units of packed red cells. EGD and colonoscopy were normal without any b leeding. He was discharged home but he came back on 07/09/2020 and was found to be sedated anemic and was given 2 more units of packed red cells. Iron profile was normal and folate and B12 was also normal although he had high MCV. Patient was initially seen on 03/08/2021 and underwent bone marrow aspiration and biopsy on August 2020. He is found to have chronic myelomonocytic leukemia0 with dysmyelopoiesis. Patient erythropoietin level came back high at 496.3. It was decided to start him on treatment with demethylating agents. Interval History Randall is coming today for a follow-up visit along with his for further decision making. Patient has myelodysplasia with myelomonocytic leukemia stage 0. Various options were discussed including starting oral Inqovi, combination of decitabine/cedazuridine. This combination is in the form of oral tablets and it is given 1 tablet daily day 1 to day 5 of 28 day cycle. At least 4 cycles needs to be completed to see the effectiveness. He should take it 2 hours before or 2 hours after meals. He was told about 30% patient get benefit with improvement in bone marrow function and improvement in blood count. Side effects were discussed in detail. Initially patient may have low count and may require blood transfusion. He may develop risk of infection and fatigue and tiredness. Nausea and vomiting is a possibility although nausea medicine may compensate for his vomiting. Sometimes these medicines may cause diarrhea also an increasing creatinine is a possibility too. Patient will be given literature about Inqovi to study it closely. We will send the prescription to pharmacy and once he receives his tablets he will be calling us before starting it. Overall he is stable although he using cane for ambulation. He is getting blood transfusions almost every month. In May 2020 he received 3 transfusions and he got 2 transfusion in July and 2 in August. Our aim is to decrease the transfusion need which may happen for next 4-5 months. Allergies Coded Allergies: No Known Allergies (Unverified , 11/17/18) Home Medications Reported Medications [Patient Comment] No Conflict Check PATIENT TOOK SOME OF HIS MEDICATIONS, BUT NOT ALL AND IS UNSURE WHICH HE TOOK 09/02/20 Niacin (Inositol Niacinate) (Niacin 500 mg Capsule) 500 Mg Capsule, 1 CAP PO DAILY for 30 Days, #30 CAP 08/16/20 Ferrous Sulfate (Ferrous Sulfate) 325 Mg Tablet, 325 MG PO DAILY, TAB 08/09/20 Pantoprazole Sodium (Pantoprazole Sodium) 40 Mg Tablet.dr, 40 MG PO DAILY, TAB 08/09/20 Cyclosporine (Restasis) 0.05% Droperette, 1 DROP OU BID 05/28/20 Simvastatin (Simvastatin) 40 Mg Tablet, 40 MG PO QHS 05/28/20 Meclizine HCl (Meclizine HCl) 12.5 Mg Tablet, 12.5 MG PO TID, TAB 05/28/20 Gluc Gramajo/Chondro Gramajo A/Vit C/Mn (Glucosamine Chondroitin Tab) 1 Each Tablet, 1 TAB PO DAILY, TAB 05/28/20 Multivitamins (Thera M Plus Tablet) 1 Each Tablet, 1 TAB PO DAILY, TAB 05/28/20 Cholecalciferol (Vitamin D3) (Vitamin D3) 1,000 Unit Tablet, 1000 UNITS PO DAILY, TAB 05/28/20 Calcium Carbonate/Vitamin D3 (Calcium 500-Vit D3 200 Tablet) 1 Each Tablet, 1 TAB PO DAILY, TAB 05/28/20 Ascorbic Acid (Ascorbic Acid) 500 Mg Tablet, 500 MG PO DAILY, TAB 05/28/20 Doxycycline Monohydrate (Doxycycline Monohydrate) 50 Mg Tablet, 50 MG PO DAILY, TAB 05/28/20 Carmichael-3 Fatty Acids (Carmichael-3) 1,000 Mg Capsule, 1000 MG PO DAILY, CAP 05/28/20 Timolol Maleate (Timolol Maleate) 0.5% 5ML Drops, 1 DROP OU DAILY 05/28/20 Past Medical History Past Medical History: Past medical history is significant for COPD, atrial fibrillation, coronary artery disease, aortic stenosis. Past Surgical History: History of cholecystectomy 6 years ago. Carpal tunnel surgery Family History: Patient one sister of lung cancer stage IV. One brother of diabetic complications. 2 sisters are alive and are doing well. Father of Parkinson's disease and at the age of 98. Mother passed be due to old age. 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 Used to smoke and has 20 pack year history although he quit in July 2069. Denies any drug abuse. He himself has no kids but his has 3 kids from previous marriage. They have for 60 years. Review of Systems General: Reports: Fatigue (please be candidate out on mild exertion); Denies: ROS Unobtainable, Chills, Night Sweats, Malaise, Normal Appetite, Other Symptoms Constitutional: Reports: Weakness (weakness and fatigue), Fatigue (50 is really cannot walk long distances); Denies: ROS Unabtainable, Chills, Fever, Malaise, Night Sweats, Weight Loss, Lethargy, Normal appetite, Other symptoms Eyes: Denies: Pain, Vision change, Conjunctivae inflammation, Eyelid inflammation, Redness, Other HEENT: Denies: Head Aches, Ear Pain, Dysphagia, Sinus Congestion, Post Nasal Drip, Sore Throat, Epistaxis, Other Symptoms Skin: Denies: Rash, Lesions, Jaundice, Bruising, Other Pulmonary: Reports: Dyspnea (shortness of breath on mild exertion due to COPD); Denies: Cough, Pleuritic Chest Pain, Other Symptoms Cardiovascular: Reports: Chest Pain (chest pain on exertion and lifting heavy weights), Palpitations (patient has atrial fibrillation which is paroxysmal.), Paroxysmal Noc. Dyspnea (no cranial); Denies: Orthopnea, Edema, Lt Headedness, Other Symptoms Breast: Denies: New Breast Lumps / Masses, Nipple Retraction, Nipple Discharge, Breast Skin Changes, Breast Pain or Tenderness, Other Breast Complaints Gastrointestinal: Denies: Nausea, Vomiting, Abdominal Pain, Diarrhea, Constipation, Melena, Hematochezia, Other Symptoms Genitourinary: Denies: Dysuria, Frequency, Incontinence, Hematuria, Retention, Other Symptoms Hematologic: Denies: Bruising, Bleeding Excessively, Petecchia, Purpura, Enlarged Lymph Nodes, Other Hematologic Endocrine: Denies: Polydipsia, Polyphagia, Polyuria, Heat Intolerance, Cold Intolerance, Other Endocrine Sx Musculoskeletal: Denies: Neck pain, Shoulder pain, Arm pain, Back pain, Hand pain, Leg pain, Foot pain, Joint pain, Muscle pain, Spasms, Gout, Joint sweling, Muscle stiffness, Midthoracic pain, Other Neurological: Denies: Weakness, Numbness, Incoordination, Change in Speech, Confusion, Seizures, Other Symptoms Psych: Denies: Mood Normal, Anxiety, Depression, Memory Issues, Thoughts of Self Harm, Anger, Thoughts of harming Other, Other Psych Physical Examination General Exam: Negative: Alert, Cooperative, No Acute Distress, Mild Distress, Moderate Distress, Severe Distress, Oriented Times Three, Other Eye Exam: Negative: PERRLA, Conjunctiva & lids normal, EOMI, Sclera icteric, Ptosis, Other Eye Symptoms ENT EXAM: Positive: Other ENT (on your hard of hearing); Negative: Atraumatic, Mucous membr. moist/pink, Pharynx Normal, Tongue Midline, Pharyngeal Edema, Nares Patent, Tympanic Membranes Normal, Ext Auditory Canal Nml, Pinna Normal Neck Exam: Negative: Supple, JVD, Thyromegaly, +2 carotid pulse wo bruit, Lymphadenopathy, Other Chest Exam: Negative: Clear to auscultation, Normal air movement, Rales, Rhonchi, Wheezing, Diminished, Other Heart Exam: Positive: Murmurs (ejection systolic murmur at the aortic area); Negative: Rate Normal, Tachycardic, Bradycardic, Regular Rhythm, Irregular Rhythm, Normal S1, Normal S2, Gallops, Rubs, Other Breast Exam: Negative: Symmetric Bilaterally, Lumps or Masses, Nipple Retraction, Nipple Discharge, Skin Changes, Other Breast Findings Abdomen Exam: Negative: Normal bowel sounds, BS Hyperactive, BS Hypoactive, Soft, Tenderness, Hepatospenomegaly, Mass, Hernia, Other Extremity Exam: Negative: Clubbing, Cyanosis, Edema, Normal pulses, Tenderness, Swelling, Other Skin Exam: Negative: Nl turgor and temperature, Rash, Breakdown, Lesion, Pruritus, Other skin issue Neuro Exam: Negative: Normal Gait, Normal Speech, Strength at 5/5 X4 ext, Normal Tone, Sensation Intact, Cranial Nerves 3-12 NL, Reflexes 2+, Other Psych Exam: Negative: Mental status NL, Mood NL, Anxiety, Memory Intact, Oriented x 3, Other Ht / Wt Ht / Wt Height:5 Feet 10 Inches Weight: 72.300 Kg Vital Signs Vital Signs Date Time Temp Pulse Resp B/P (MAP) Pulse Ox O2 Delivery O2 Flow Rate FiO2 09/19/20 15:21 97.6 78 18 114/69 (84) 98 Room Air Laboratory Data Laboratory Tests 09/19/20 14:52 Assessment/Plan Mr. 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 Bone marrow has shown ma naging sideroblasts and would iron stores. He has been blood transfusion dependent and last transfusion was done on 09/02/2020. Patient erythropoietin level was around 500 so he is not a candidate for epotin alpha. We are going to start him on Inqovi 1 tablet daily for 5 days every 28 days. It is demethylating agent and will make sure his bone marrow wartime and there is 30% chance that he will start making his own blood. Prescription for Inqovi will be called in to his pharmacy. He will be followed closely with weekly CBC and blood transfusion as needed basis. At least 3 or to 4 months of treatment is planned to see the difference in the requirement of his transfusions. Patient and his were given ample time to ask questions which were answered to their satisfaction. CC TO: CC TO: Primary Care Provider: Jabari Connor Dr. Slezka Referring Provider: EREN TORRES MD Sep 19, 2020 17:58
[~2020-09-26] VITALS: Ht 177.8 cm; Wt 72.3 kg
[~2020-09-26 10:20] MED LIST changes: +ACET1TAB55 PO; +ASPI81CH33 PO; +AUGM0.0534 EXT; +DECI1TAB PO; +DOK1CAP7 PO; +FERR325T18 PO; +IPRA0.00 NEB; +LIDOCAINE 2% MDV 20ML VIAL XX ONE; +LOVE0.6I2 SC; +MECL-136 PO; -MECL12.590 PO; +METO1TAB87 PO; +MOM30SS2 PO; +MORP2INJ4 IV; +PRED20TA PO; +SYMB80INH INH; +VANC1PIG IV; +ZOSY1SOL6 IV; +[UNRECOGNIZED DRUG - OTHER] PO
[2020-09-26 10:56] LABS: BASO # 0.1 10^3/uL (0.0-0.2); BASO % 1.4 % (0.0-1.0); EOS # 0.1 10^3/uL (0.0-0.5); EOS % 1.5 % (0.0-3.0); HEMATOCRIT 28.7 % (42.0-52.0); HEMOGLOBIN 8.9 g/dl (13.5-17.5); LYMPH # 0.8 10^3/uL (1.5-5.0); LYMPH % 14.3 % (24.0-44.0); MEAN CORPUSCULAR HEMOGLOBIN 33.3 pg (27.0-33.0); MEAN CORPUSCULAR VOLUME 107.5 fl (80.0-96.0); MONO # 1.5 10^3/uL (0.0-0.8); MONO % 26.3 % (2.0-8.0); PLATELET COUNT, AUTOMATED 162 10^3/uL (150-450); RED BLOOD COUNT 2.67 10^6/uL (4.30-6.10); WHITE BLOOD COUNT 5.8 10^3/uL (4.0-10.0)
[2020-09-26 12:05] LABS: ALBUMIN 3.4 GM/DL (3.2-5.2); ALT/SGPT 34 U/L (12-78); BILIRUBIN,TOTAL 0.4 MG/DL (0.2-1.0); BLOOD UREA NITROGEN 12 MG/DL (7-18); CARBON DIOXIDE LEVEL 30 MEQ/L (21-32); CHLORIDE LEVEL 107 MEQ/L (98-107); CREATININE FOR GFR 0.85 MG/DL (0.70-1.30); GLOMERULAR FILTRATION RATE > 60.0 (>35); GLUCOSE, FASTING 121 MG/DL (70-100); POTASSIUM SERUM 4.3 MEQ/L (3.5-5.1); SODIUM LEVEL 142 MEQ/L (136-145); TOTAL PROTEIN 6.4 GM/DL (6.4-8.2)
== END | disposition home or self-care (01) ==
LOC: M ONCM 08-16 13:59
PROVIDERS: ATTEND Specialist
DX: C93.10 Chronic myelomonocytic leukemia not having achieved remission (principal); D46.9 Myelodysplastic syndrome, unspecified; I10 Essential (primary) hypertension; I48.91 Unspecified atrial fibrillation; I25.10 Atherosclerotic heart disease of native coronary artery without angina pectoris; I35.0 Nonrheumatic aortic (valve) stenosis; J44.9 Chronic obstructive pulmonary disease, unspecified; Z79.899 Other long term (current) drug therapy; D64.9 Anemia, unspecified
CPT/HCPCS: 36415; 38222; 71046; 82668; 85025; 88300; 88305; 88311; 88313; G0463

== ENCOUNTER 2020-09-26 19:27 | Inpatient (IN) | payer MEDICARE ==
[~2020-09-26] VITALS: Ht 177.8 cm; Wt 73.9 kg
[~2020-09-26 19:27] MED LIST changes: -ACET1TAB55 PO; -ASPI81CH33 PO; -AUGM0.0534 EXT; -DOK1CAP7 PO; -FERR325T18 PO; -IPRA0.00 NEB; -LIDOCAINE 2% MDV 20ML VIAL XX ONE; -LOVE0.6I2 SC; -METO1TAB87 PO; -MOM30SS2 PO; -MORP2INJ4 IV; -PRED20TA PO; -SYMB80INH INH; -VANC1PIG IV; -ZOSY1SOL6 IV; -[UNRECOGNIZED DRUG - OTHER] PO
[2020-09-26] MEDS ORDERED: ACETAMINOPHEN 325 MG TAB PO ONE (19:50)
[2020-09-26] MEDS ORDERED: NS 1,000 ML IV ONE (19:50)
[2020-09-26 20:05] LABS: MEAN CORPUSCULAR HEMOGLOBIN 34.6 pg (27.0-33.0); MEAN CORPUSCULAR HGB CONC 32.1 g/dl (32.0-36.5); MEAN CORPUSCULAR VOLUME 107.7 fl (80.0-96.0); PLATELET COUNT, AUTOMATED 187 10^3/uL (150-450)
[2020-09-26] MEDS: COMBIVENT RESPIMAT 100-20MCG INHALER 4GM INH SCH ×3 (20:10→21:16)
[2020-09-26] MEDS ORDERED: ASPIRIN 325 MG TAB PO ONE (20:30)
[2020-09-26] MEDS ORDERED: MORPHINE 2 MG/ML 1ML VIAL (J2270) IV PRN (20:30)
[2020-09-26 20:35] LABS: ANISOCYTOSIS 3+; ATYPICAL LYMPH 6 % (0-5); BASOPHILS 1 % (0-1); EOSINOPHILS 1 % (0-3); LYMPHOCYTES 4 % (16-44); METAMYELOCYTES 2 % (0-0); MONOCYTES 10 % (0-5); MYELOCYTES 1 % (0-0); NEUTROPHILS 69 % (28-66); PLATELET ESTIMATE NORMAL (NORMAL)
--- NOTE | 2020-09-26 20:37 | REPVR ---
PROCEDURE INFORMATION: Exam: XR Chest Exam date and time: 09/26/2020 7:46 PM Age: 80 years old Clinical indication: Cough; Additional info: Dyspnea/cough TECHNIQUE: Imaging protocol: XR of the chest Views: 1 view. COMPARISON: [place] Chest, 1 view 09/02/2020 5:19 PM FINDINGS: Lungs: Reticular interstitial lung changes in both lungs. There are increasing pulmonary markings in both lungs, greater in the right lung base. No masses are seen. Pleural spaces: Small right pleural effusion. No pneumothorax. Heart/Mediastinum: Unremarkable. No cardiomegaly. Bones/joints: Unremarkable. IMPRESSION: Chronic interstitial lung disease with possible superimposed basilar pneumonia. Electronically signed by: Earl Blount On 09/26/2020 20:38:08 PM
[2020-09-26 20:39] LABS: OVALOCYTES 1+
[2020-09-26] MEDS: METOPROLOL 5 MG/5 ML VIAL IV SCH ×13 (20:40→23:42)
[2020-09-26 20:42] LABS: POLYCHROMASIA 1+
[2020-09-26 20:45] LABS: ALBUMIN 3.1 GM/DL (3.2-5.2); ALT/SGPT 34 U/L (12-78); BILIRUBIN,DIRECT 0.2 MG/DL (0.0-0.2); BILIRUBIN,TOTAL 0.6 MG/DL (0.2-1.0); BLOOD UREA NITROGEN 14 MG/DL (7-18); CALCIUM LEVEL 8.1 MG/DL (8.8-10.2); CARBON DIOXIDE LEVEL 25 MEQ/L (21-32); CHLORIDE LEVEL 107 MEQ/L (98-107); CK-MB VALUE MASS 1.5 NG/ML (<3.6); CPK CREATINE PHOSPHOKINASE 67 U/L (39-308); CREATININE FOR GFR 0.89 MG/DL (0.70-1.30); GLOMERULAR FILTRATION RATE > 60.0 (>35); GLUCOSE, FASTING 151 MG/DL (70-100); MB/CK RELATIVE INDEX 2.24 (< OR =4); NT-PRO BNP 3984 PG/ML (<450); POTASSIUM SERUM 4.9 MEQ/L (3.5-5.1); SODIUM LEVEL 138 MEQ/L (136-145); TOTAL PROTEIN 6.1 GM/DL (6.4-8.2); TROPONIN I 0.09 NG/ML (< 0.10)
[2020-09-26 20:50] LABS: ABG BASE EXCESS -3.2 (-2.0-2.0); ABG O2 SATURATION 94.4 % (95.0-99.0); ABG PARTIAL PRESSURE CO2 29.5 mmHg (35.0-45.0); ABG PARTIAL PRESSURE O2 70.7 mmHg (75.0-100.0); ABG STANDARD HCO3 21.8 MEQ/L (22.0-26.0); ABG TOTAL CO2 20.9 MEQ/L (23.0-31.0); ABG pH (ARTERIAL) 7.449 UNITS (7.350-7.450)
[2020-09-26 20:52] LABS: INR 1.2; PROTHROMBIN TIME 15.5 SECONDS (12.5-14.3)
[2020-09-26] MEDS ORDERED: SIMVASTATIN 40 MG TAB PO SCH (21:00)
[2020-09-26] MEDS: DOCUSATE SODIUM 100MG CAPSULE PO SCH (21:00)
[2020-09-26 21:28] LABS: RSV AMPLIFICATION NEGATIVE (NEGATIVE)
[2020-09-26] MEDS ORDERED: cefTRIAXone SOD 1 GM in D5W MINI-BAG PLUS 50 ML IV ONE (21:35)
[2020-09-26] MEDS: NS 1,000 ML IV SCH ×2 (21:35→21:49)
[2020-09-26] MEDS ORDERED: DIGOXIN INJ 0.5 MG/2 ML AMP (J1160) IV ONE (22:30)
[2020-09-26] MEDS ORDERED: DIGOXIN 0.125 MG TAB PO ONE (22:30)
[2020-09-26] MEDS ORDERED: DIGOXIN INJ 0.5 MG/2 ML AMP (J1160) As Ordered ONE (22:31)
[2020-09-26] MEDS ORDERED: IPRATROPIUM 0.5MG/ALBUTEROL 2.5MG INH SOL UD 3ML (DUONEB) NEB ONE (22:35)
[2020-09-26] MEDS ORDERED: [UNRECOGNIZED DRUG - OTHER] PO (22:55)
[2020-09-26] MEDS ORDERED: AUGM0.0534 EXT (22:55)
[2020-09-26 23:18] VITALS: O2SAT 99
[2020-09-26] MEDS ORDERED: MOM 30ML SUSPENSION UDC PO PRN (23:35)
[2020-09-26] MEDS ORDERED: MAALOX 30 ML SUSP *UDC PO PRN (23:35)
[2020-09-26] MEDS ORDERED: ACETAMINOPHEN TAB 650MG DOSE (2X325MG) PO PRN (23:35)
[2020-09-26] MEDS ORDERED: methylPREDNISolone 125MG 2ML VIAL IV STA (23:38)
[2020-09-26] MEDS ORDERED: VANCOMYCIN HCL 750 MG, VIAL MATE ADAPTER 1 EACH in NS 250 ML IV ONE (23:45)
[2020-09-27] VITALS (18 sets, daily range): BP systolic 92–139; BP diastolic 44–67
--- NOTE | 2020-09-27 00:56 | HPEPDOC ---
[facility] Medical History & Physical Date of Admission Sep 26, 2020 Date of Service: Sep 26, 2020 History and Physical CHIEF COMPLAINT: Shortness of breath HISTORY OF PRESENT ILLNESS: 80-year-old male history of atrial fibrillation, COPD, MDS, aortic stenosis who presents to the hospital due to a 1 day history of shortness of breath associated with chills at home. He lives at home with his . Tells me that over the course of the day he's become progressively more short of breath. He endorses having some chest discomfort on and off that doesn't radiate and located near his left lower chest. He hasn't tried to medicate himself to alleviate the discomfort. Nothing worsens his symptoms. Supplemental oxygen received in the emergency department appears to improve the symptoms. He also felt better after receiving IV metoprolol which was followed by decrease in his heart rate. Patient says his chills at home have been on and off all day but he hasn't felt febrile. He denies any nausea or vomiting or abdominal symptoms. Denies pain on urination. In the emergency room and patient was given 5 mg of IV metoprolol which brought his heart rate initially but his blood pressure dropped he was given normal saline with improvement in his blood pressure as well as IV digoxin followed by another 5 mg of IV metoprolol now his blood pressure systolic is around 110 his heart rate is down to the 80s he is on a CPAP machine and his breathing and sleeping comfortably. Patient will be admitted to the ICU for close monitoring and medical management. PAST MEDICAL/SURGICAL HISTORY: COPD Atrial fibrillation Coronary artery disease Aortic stenosis MDS Cholecystectomy Carpal tunnel surgery SOCIAL HISTORY: Denies alcohol use Denies tobacco use currently but has a history of smoking Denies illicit drug use FAMILY HISTORY: Reviewed and none contributory to this admission. One sister of lung cancer. ALLERGIES: Please see below. REVIEW OF SYSTEMS: 10 point review of systems complete all negative otherwise stated in HPI HOME MEDICATIONS: Please see below. PHYSICAL EXAMINATION: Constitutional: Awake and alert, in mild apparent distress initially which resolved with CPAP ENT: Sclera are clear. Respiratory: Lungs coarse breath sounds bilaterally with superimposed wheezing. No use of accessory muscles but has some mild respiratory distress initially, imrpoved with CPAP, and sleeping comfortably with it on. Cardiovascular: Irregular heart rate no appreciable murmur no JVD Gastrointestinal: Abdomen is soft, non distended, non tender, BS present. Musculoskeletal: No lower extremity edema. Neurologic: No focal neurological deficit. Mental Status: A&O x3, normal affect Skin: Warm, dry LABORATORY DATA: See below. IMAGING: See chart MICROBIOLOGY: Please see below. ASSESSMENT/PLAN 80-year-old male presents for shortness of breath thought to be multifactorial from pneumonia, atrial fibrillation with RVR, and COPD exacerbation. Patient admitted for further medical workup and treatment. # Shortness of breath: I think this is multifactorial combination of pneumonia as well as mild COPD exacerbation possibly triggered by the pneumonia, as well as his A fib with RVR. # Atrial fibrillation with RVR: Uncontrolled. Received metoprolol in the ED with good response initially but then back up to the 120 to 140s again. Received IV digoxin and PO. ICU on CPAP. His breaker layer Dr. Bryan had taken him off anticoagulation. He is now controlled after a second dose of metoprolol 5mg IV. His Medrek doesn't show he is on a beta erick, I confirmed with the pharmacy, Given his good response to 2x of 5mg IV metoprolol I have placed him on metoprolol tartrate 25mg q6h. # Community-acquired pneumonia: Initially received Rocephin in the ED I will escalate his treatment to vancomycin and Zosyn. MRSA PCR. Fu BCx. initial WBC 16. CXR shows Chronic interstitial lung disease with possible superimposed basilar pneumonia. # Acute on chronic COPD exacerbation: Wheezing on exam. Duonebs scheduled and as needed. 5 days of prednisone. Supplement oxygen target O2 88-92%. Cpap. # Elevated toponin: discussed this with Dr Núñez. likely demand ischemia from the A fib with RVR. I will obtain another tropnin in 6 hours. Currently CP free. # MDS: Follows up with oncology outpatient. Often asymptomatic anemia secondary to this and receives blood transfusions. Hemoglobin is currently 9. Monitor CBC. # Aortic stenosis: Had an appointment tomorrow to discuss this possible repair with breaker layer but this will have to be delayed # DVT prophylaxis: Heparin A Yousef Hospitalist Vital Signs Vital Signs Date Time Temp Pulse Resp B/P (MAP) Pulse Ox O2 Delivery O2 Flow Rate FiO2 09/27/20 00:18 92 24 100 NIPPV (BIPAP/CPAP) 60 09/27/20 00:15 100/55 (70) 09/26/20 23:17 15.0 09/26/20 22:26 98.9 Laboratory Data Labs 24H Laboratory Tests 2 09/26/20 19:40: Immature Granulocyte % (Auto) , Neutrophils (%) (Auto) , Nucleated Red Blood Cells % (auto) 0.1H, Neutrophils 69H, Band Neutrophils 6, Lymphocytes (Manual) 4L, Monocytes (Manual) 10H, Eosinophils (Manual) 1, Basophils (Manual) 1, Metamyelocytes 2H, Myelocytes 1H, Atypical Lymphocytes 6H, Polychromasia 1+, Basophilic Stippling 1+, Anisocytosis 3+, Macrocytosis 2+, Ovalocytes 1+, Platelet Estimate NORMAL, Anion Gap 6L, Glomerular Filtration Rate > 60.0, Lactic Acid Level 2.9*H, Calcium Level 8.1L, Total Bilirubin 0.6, Direct Bilirubin 0.2, Aspartate Amino Transf (AST/SGOT) 33, Alanine Aminotransferase (ALT/SGPT) 34, Alkaline Phosphatase 93, Total Creatine Kinase 67, Creatine Kinase MB 1.5, Creatine Kinase MB Relative Index 2.24, Troponin I 0.09, EC-Bvm-S-Type Natriuretic Peptide 3984H, Total Protein 6.1L, Albumin 3.1L, Albumin/Globulin Ratio 1.0 09/26/20 20:21: Prothrombin Time 15.5H, Prothromb Time International Ratio 1.20, Coronavirus (COVID-19)(PCR) NEGATIVE, Influenza Type A (RT-PCR) NEGATIVE, Influenza Type B (RT-PCR) NEGATIVE, Respiratory Syncytial Virus (PCR) NEGATIVE 09/26/20 20:40: Blood Gas Bicarbonate Standard 21.8L, Arterial Blood pH 7.449, Arterial Blood Partial Pressure CO2 29.5L, Arterial Blood Partial Pressure O2 70.7L, Arterial B lood Total CO2 20.9L, Arterial Blood HCO3 20.0L, Arterial Blood Base Excess - 3.2L, Arterial Blood Oxygen Saturation 94.4L 09/26/20 22:43: Troponin I 0.76#H CBC/BMP Laboratory Tests 09/26/20 19:40 Microbiology Microbiology 09/26/20 Blood Culture, Received Pending 09/26/20 Blood Culture, Received Pending Home Medications Scheduled Aspirin (Aspirin) 81 Mg Tab.chew, 81 MG PO DAILY for pain Budesonide/Formoterol (Symbicort 80-4.5 Mcg Inhaler) 6.9 Gm Hfa.aer.ad, 2 PUFF INH RBID Docusate Sodium (Dok) 100 Mg Capsule, 100 MG PO BID Enoxaparin Sodium (Lovenox) 80 Mg/0.8 Ml Syringe, 70 MG SC Q12H Ferrous Sulfate (Ferrous Sulfate) 325 Mg Tablet, 325 MG PO DAILY Ipratropium/Albuterol Sulfate (Iprat-Albut 0.5-3(2.5) mg/3 ml) 3 Ml Ampul.neb, 3 ML NEB RQ6H Metoprolol Tartrate (Metoprolol Tartrate) 25 Mg Tablet, 25 MG PO Q6H Pantoprazole Sodium (Pantoprazole Sodium) 40 Mg Tablet.dr, 40 MG PO DAILY Xouwwzalqipz-Tayc-Ygvqpfiw,Iso (Zosyn 4.5 gm/100 ml Galaxy Bag) 4.5 Gm/100 Ml Froz.piggy, 1 DORA IV Q6H Prednisone (Prednisone) 20 Mg Tablet, 40 MG PO DAILY Simvastatin (Simvastatin) 40 Mg Tablet, 40 MG PO QHS Timolol Maleate (Timolol Maleate) 0.5% 5ML Drops, 1 DROP OU DAILY Vancomycin/Water For Inj (Peg) (Vancomycin 1 Gram/200 ml Bag) 1 Gm/200 Ml Piggyback, 1 GM IV Q8H Scheduled PRN Acetaminophen (Acetaminophen) 325 Mg Tablet, 650 MG PO Q6HP PRN for PAIN OR FEVER Magnesium Hydroxide (Milk of Magnesia) 400 Mg/5 Ml Oral.susp, 30 ML PO DAILY PRN for CONSTIPATION Morphine Sulfate (Morphine Sulfate) 2 Mg/1 Ml Vial, 2 MG IV Q4HP PRN for CHEST PAIN Allergies Coded Allergies: No Known Allergies (Unverified , 11/17/18) A-FIB/CHADSVASC A-FIB History Current/History of A-Fib/PAF?: Yes Current PO Anticoag Therapy: Yes ORQUIDEA WISEMAN MD Sep 27, 2020 00:56
[2020-09-27 01:18] LABS: CK-MB VALUE MASS 24.8 NG/ML (<3.6); MB/CK RELATIVE INDEX 16.1 (< OR =4); TROPONIN I 1.6 NG/ML (< 0.10)
[2020-09-27] MEDS: SYMBICORT 80/4.5MCG INHALER 6GM INH SCH ×2 (01:28→07:39)
[2020-09-27] MEDS ORDERED: VANCOMYCIN HCL 500 MG in D5W MINI-BAG PLUS 100 ML IV ONE (01:30)
--- NOTE | 2020-09-27 03:36 | ECGEPIP ---
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
[2020-09-27] MEDS: PIPERACILLIN/TAZOBACTAM SOD 4.5 GM in D5W MINI-BAG PLUS 50 ML IV SCH ×3 (03:49→16:51)
[2020-09-27] MEDS: IPRATROPIUM 0.5MG/ALBUTEROL 2.5MG INH SOL UD 3ML (DUONEB) NEB SCH ×3 (04:03→13:59)
[2020-09-27] MEDS ORDERED: HEPARIN SOD (PORCINE) 5000UNITS/ML 1ML VIAL/SYRINGE SC SCH (06:00)
[2020-09-27] MEDS: METOPROLOL TART 25 MG TABLET PO SCH ×2 (06:00→11:46)
[2020-09-27] MEDS: METOPROLOL 5 MG/5 ML VIAL IV SCH ×3 (06:07→06:10)
[2020-09-27 06:22] LABS: HEMATOCRIT 29.3 % (42.0-52.0); HEMOGLOBIN 9.2 g/dl (13.5-17.5); MEAN CORPUSCULAR HEMOGLOBIN 33.6 pg (27.0-33.0); MEAN CORPUSCULAR HGB CONC 31.4 g/dl (32.0-36.5); MEAN CORPUSCULAR VOLUME 106.9 fl (80.0-96.0); PLATELET COUNT, AUTOMATED 161 10^3/uL (150-450); RED BLOOD COUNT 2.74 10^6/uL (4.30-6.10); WHITE BLOOD COUNT 19.3 10^3/uL (4.0-10.0)
[2020-09-27 06:50] LABS: ALBUMIN 2.8 GM/DL (3.2-5.2); BILIRUBIN,TOTAL 0.7 MG/DL (0.2-1.0); CALCIUM LEVEL 8.2 MG/DL (8.8-10.2); CREATININE FOR GFR 1.24 MG/DL (0.70-1.30); GLOMERULAR FILTRATION RATE 59.4 (>35); MAGNESIUM LEVEL 1.9 MG/DL (1.8-2.4); POTASSIUM SERUM 4.5 MEQ/L (3.5-5.1); TROPONIN I 3.87 NG/ML (< 0.10)
[2020-09-27] MEDS: DOCUSATE SODIUM 100MG CAPSULE PO SCH (08:33)
--- NOTE | 2020-09-27 08:37 | ECGEPIP ---
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
[2020-09-27] MEDS ORDERED: ENOXAPARIN 80MG/0.8ML SYRINGE (J1650 PER 10MG) SC SCH (09:00)
[2020-09-27] MEDS ORDERED: TIMOLOL MALEATE 0.5% OPHTH SOLN 5 ML OU SCH (09:00)
[2020-09-27] MEDS ORDERED: FERROUS SULFATE 325MG TAB PO SCH (09:00)
[2020-09-27] MEDS ORDERED: PANTOPRAZOLE 40MG TAB (PROTONIX) PO SCH (09:00)
[2020-09-27] MEDS ORDERED: VANCOMYCIN HCL 1,000 MG, VIAL MATE ADAPTER 1 EACH in NS 250 ML IV SCH (09:00)
[2020-09-27] MEDS ORDERED: predniSONE 20 MG TAB PO SCH (09:00)
--- NOTE | 2020-09-27 09:10 | REP ---
INDICATION: HYPOXEMIA. COMPARISON: Comparison chest x-ray September 26, 2020. TECHNIQUE: Portable upright AP chest radiograph. FINDINGS: Monitoring electrodes and oxygen delivery tubing are seen. There is calcific pleural plaquing noted on the leaves of the hemidiaphragms bilaterally. There is slight blunting of the right lateral pleural angle today indicative of a small amount of right pleural fluid. Mild cardiomegaly is observed. Interstitial markings are diffusely prominent although slightly improved from yesterday's radiograph.. No new infiltrate is seen. IMPRESSION: Improved CHF pattern/interstitial edema pattern. Slight blunting of the right lateral pleural angle today.. <Electronically signed by Kelby Smalls > 09/27/20 [id number]
[2020-09-27] MEDS ORDERED: MOM30SS2 PO (12:56)
[2020-09-27] MEDS ORDERED: DOK1CAP7 PO (12:56)
[2020-09-27] MEDS ORDERED: PANT40TA29 PO (12:56)
[2020-09-27] MEDS ORDERED: VANC1PIG IV (12:56)
[2020-09-27] MEDS ORDERED: METO1TAB87 PO (12:56)
[2020-09-27] MEDS ORDERED: ZOSY1SOL6 IV (12:56)
[2020-09-27] MEDS ORDERED: ACET1TAB55 PO (12:56)
[2020-09-27] MEDS ORDERED: SIMV40TA20 PO (12:56)
[2020-09-27] MEDS ORDERED: IPRA0.00 NEB (12:56)
[2020-09-27] MEDS ORDERED: MORP2INJ4 IV (12:56)
[2020-09-27] MEDS ORDERED: SYMB80INH INH (12:56)
[2020-09-27] MEDS ORDERED: TIMO0.5S29 OU (12:56)
[2020-09-27] MEDS ORDERED: LOVE0.6I2 SC (12:56)
[2020-09-27] MEDS ORDERED: ASPI81CH33 PO (12:56)
[2020-09-27] MEDS ORDERED: FERR325T18 PO (12:56)
--- NOTE | 2020-09-27 12:59 | DS.PDOC ---
Discharge Summary General Date of Admission Sep 26, 2020 at 23:45 Date of Discharge 09/27/20 Attending Physician: Deja Nuñez MD Discharge Summary HISTORY OF PRESENT ILLNESS: 80-year-old male history of atrial fibrillation, COPD, chronic myelomonocytic leukemia-(CMML-0), severe aortic stenosis who presented o the hospital due to a 1 day history of shortness of breath associated with chills at home. He lives at home with his . He staes that over the course of the day he's become progressively more short of breath. He endorses having some chest discomfort on and off that doesn't radiate and located near his left lower chest. He hasn't tried to medicate himself to alleviate the discomfort. Nothing worsens his symptoms. Supplemental oxygen received in the emergency department appears to improve the symptoms. He also felt better after receiving IV metoprolol which was followed by decrease in his heart rate. Patient says his chills at home have been on and off all day but he hasn't felt febrile. He denies any nausea or vomiting or abdominal symptoms. Denies pain on urination. In the emergency room and patient was given 5 mg of IV metoprolol which brought his heart rate initially but his blood pressure dropped he was given normal saline with improvement in his blood pressure as well as IV digoxin followed by another 5 mg of IV metoprolol. HR improved to the 80s he is on a CPAP machine and his breathing and sleeping comfortably. Patient was admitted to the ICU for close monitoring and medical management for shortness of breath likely multifactorial to mild COPD exacerbation, community acquired PNA, atrial fibrillation with RVR. HOSPITAL COURSE: Over the course of the evening, HR remained control on BB Q6H. He had no increased SOB, chest pain but remained on 2-3 L NC. BNP was elevated at 3984 and troponin gradually increased. Cardiology (Dr. Núñez) was consulted and decision was made to monitor until the AM. Patient's lactic acid remained slightly elevated despite abx, they were broadened to vancomycin and zosyn over the evening. WBC increased to 19K, he remained afebrile but LA was still high at 4.1 in the AM. Fluids were resumed at 85 cc/hr. Troponins increased to 3.87. No new ECG changes. 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 Bryan was called and, due to patient's known severe aortic stenosis with rising cardiac markers, concern was for possible ACS vs. worsening valvular issue. He discussed the case with Dr. Douglas who agreed upon acceptance of transfer to [facility] for possible cardiac cath, possible further intervention for aortic valve. At the time of transfer, patient denied chest pain, shortness of breath that worsened, cough, fevers, chills, n/v/d. PAST MEDICAL HISTORY: COPD Atrial fibrillation Coronary artery disease Severe aortic stenosis Chronic myelomonocytic leukemia-(CMML-0) LYLY SURGICAL HISTORY: Cholecystectomy Carpal tunnel surgery Bone marrow biopsy SOCIAL HISTORY: Denies alcohol use Denies tobacco use currently but has a history of smoking Denies illicit drug use FAMILY HISTORY: One sister of lung cancer. ALLERGIES: Please see below. DISCHARGE MEDICATIONS: Please see below. PHYSICAL EXAMINATION: VS: Please see below Constitutional: Awake and alert, in mild apparent distress initially which resolved with CPAP HEENT: Sclera are clear, AT/NC NECK: No JVD, symmetrical Respiratory: Crackles in b/l posterior lung pearl. No wheezing, rhonchi or rales. Cardiovascular: NSR, systolic murmur 2/6, no rubs or gallops Gastrointestinal: Abdomen is soft, non distended, non tender, BS present. Musculoskeletal: No lower extremity edema. Neurologic: No focal neurological deficit. CN 2-12 intact Skin: Warm, dry psych: Mood and affect appropriate. LABORATORY DATA: Please see below IMAGING: CXR: Improved CHF pattern/interstitial edema pattern. Slight blunting of the right lateral pleural angle today. CXR from admission : Chronic interstitial lung disease with possible superimposed basilar pneumonia. Last echo 05/2020: EF 60% Study is of fair technical quality with challenging visualization. Underlying sinus rhythm with frequent ectopic beats. Normal left ventricle size with preserved left ventricular systolic function. Probably severe aortic stenosis (mean gradient 36 mmHg, calculated aortic valve area (SHARON) 0.9 cm2), trace aortic insufficiency. Mild mitral stenosis (mean gradient 3 mmHg), mild mitral insufficiency. Likely normal central venous pressure and at least mild pulmonary hypertension. COMMENTS: It is conceivable that aortic stenosis is severe enough to cause symptoms of dizziness. ASSESSMENT:80-year-old male history of atrial fibrillation, COPD, chronic myelomonocytic leukemia-(CMML-0), severe aortic stenosis admitted for shortness of breath likely multifactorial to mild COPD exacerbation, community acquired PNA, atrial fibrillation with RVR, ? CHF exacerbation. Being transferred to [facility] for further evaluation. PLAN: Shortness of breath likely multifactorial mild COPD exacerbation, community acquired PNA, atrial fibrillation with RVR, ? CHF exacerbation, ? evolving cardiac event -Currently saturating well on 2-3 L NC -Please see below for treatment of individual issues CAP, sepsis -procalcitonin elevated, CXR above -Immunocompromised with CMML -WBC elevated, LA elevated this AM -BCx pending, sputum culture not received yet -On gentle IVFs due to cardiac issues currently. Abx broadened overnight to zosyn, vancomycin Elevated troponins, r/o ACS vs. worsening aortic valve stenosis -Trop peaked to 3.8, no chest pain overnight with HR improving, BP stable, BNP high at 3984 -ECG remains similar to admission -Most recent echo above -Discussed with Dr. Bryan (patient's plastic tile layer) who spoke with Dr. Douglas- transferring for likely cardiac cath, possible TAVR Afib with RVR 2/2 to CAP vs. valvular cause -BB, Enoxaparin BID -Currently NSR, converted overnight Severe aortic stenosis -Has been in discussions with his plastic tile layer about AV repair -See plan above Elevated BNP, r/o CHF -No documented CHF or diastolic dysfunction on prior echo -BNP high -C/w treatment above, holding off on diuresis currently due to sepsis, no overt s/s of fluid overload Acute on chronic COPD exacerbation -Wheezing improved on exam -On PO prednisone, supplemental O2, duoneb Chronic myelomonocytic leukemia-0 (CMML-0) -Follows with Dr. Santiago, heme/onc through [place], [place] -Holding home Inqovi for now LYLY -Stable , no s/s of bleeding -Has been blood transfusion dependent and last transfusion 09/02/20 -Not candidate for epotin -iron supplement , transfuse PRN GI px -PPI DVT prophylaxis -Lovenox BID DISPOSITION: Transferring to [facility], Dr. Douglas accepting physician. TIME SPENT ON DISCHARGE: 35 minutes. Vital Signs/I&Os Vital Signs Date Time Temp Pulse Resp B/P (MAP) Pulse Ox O2 Delivery O2 Flow Rate FiO2 09/27/20 11:46 89 133/60 09/27/20 11:00 99 Nasal Cannula 2.0 09/27/20 08:00 30 09/27/20 07:00 18 09/27/20 04:00 96.8 I&O- Last 24 Hours up to 6 AM 09/27/20 05:59 Intake Total 1505 ml Output Total 0 ml Balance 1505 ml Laboratory Data Labs 24H Laboratory Tests 2 09/26/20 19:40: Immature Granulocyte % (Auto) , Neutrophils (%) (Auto) , Nucleated Red Blood Cells % (auto) 0.1H, Neutrophils 69H, Band Neutrophils 6, Lymphocytes (Manual) 4L, Monocytes (Manual) 10H, Eosinophils (Manual) 1, Basophils (Manual) 1, Metamyelocytes 2H, Myelocytes 1H, Atypical Lymphocytes 6H, Polychromasia 1+, Basophilic Stippling 1+, Anisocytosis 3+, Macrocytosis 2+, Ovalocytes 1+, Platelet Estimate NORMAL, Anion Gap 6L, Glomerular Filtration Rate > 60.0, Lactic Acid Level 2.9*H, Calcium Level 8.1L, Total Bilirubin 0.6, Direct Bilirubin 0.2, Aspartate Amino Transf (AST/SGOT) 33, Alanine Aminotransferase (ALT/SGPT) 34, Alkaline Phosphatase 93, Total Creatine Kinase 67, Creatine Kinase MB 1.5, Creatine Kinase MB Relative Index 2.24, Troponin I 0.09, NT-Pro-B -Type Natriuretic Peptide 3984H, Total Protein 6.1L, Albumin 3.1L, Albumin/Globulin Ratio 1.0 09/26/20 20:21: Prothrombin Time 15.5H, Prothromb Time International Ratio 1.20, Coronavirus (COVID-19)(PCR) NEGATIVE, Influenza Type A (RT-PCR) NEGATIVE, Influenza Type B (RT-PCR) NEGATIVE, Respiratory Syncytial Virus (PCR) NEGATIVE 09/26/20 20:40: Blood Gas Bicarbonate Standard 21.8L, Arterial Blood pH 7.449, Arterial Blood Partial Pressure CO2 29.5L, Arterial Blood Partial Pressure O2 70.7L, Arterial Blood Total CO2 20.9L, Arterial Blood HCO3 20.0L, Arterial Blood Base Excess - 3.2L, Arterial Blood Oxygen Saturation 94.4L 09/26/20 22:43: Troponin I 0.76#H 09/27/20 00:34: Lactic Acid Followup at 4 Hours 4.1*H, Total Creatine Kinase 154#, Creatine Kinase MB 24.8H, Creatine Kinase MB Relative Index 16.10H, Troponin I 1.60#*H 09/27/20 02:08: Methicillin-Resist S.aureus DNA PCR NOT DETECTED 09/27/20 06:06: Troponin I 3.87#*H, Nucleated Red Blood Cells % (auto) 0.0, Anion Gap 7L, Glomerular Filtration Rate 59.4, Lactic Acid Level 3.8*H, Calcium Level 8.2L, Magnesium Level 1.9, Total Bilirubin 0.7, Aspartate Amino Transf (AST/SGOT) 56H, Alanine Aminotransferase (ALT/SGPT) 38, Alkaline Phosphatase 84, Total Protein 6.0L, Albumin 2.8L, Albumin/Globulin Ratio 0.9 09/27/20 08:17: Procalcitonin 0.75 09/27/20 10:45: Lactic Acid Followup at 4 Hours 4.1*H 09/27/20 12:10: Random Vancomycin Level 8.6 CBC/BMP Laboratory Tests 09/26/20 19:40 09/27/20 06:06 Microbiology Microbiology 09/26/20 Blood Culture, Received Pending 09/26/20 Blood Culture, Received Pending Discharge Medications Scheduled Ascorbic Acid (Ascorbic Acid) 500 Mg Tablet, 500 MG PO QPM, (Reported) AFTER DINNER Aspirin (Aspirin) 81 Mg Tab.chew, 81 MG PO DAILY for pain Budesonide/Formoterol (Symbicort 80-4.5 Mcg Inhaler) 6.9 Gm Hfa.aer.ad, 2 PUFF INH RBID Calcium Carbonate/Vitamin D3 (Calcium 500-Vit D3 200 Tablet) 1 Each Tablet, 1 TAB PO DAILY, (Reported) Cholecalciferol (Vitamin D3) (Vitamin D3) 1,000 Unit Tablet, 1,000 UNITS PO QPM, (Reported) AFTER DINNER Cyclosporine (Restasis) 0.05% Droperette, 1 DROP OU BID, (Reported) Decitabine/Cedazuridine (Inqovi 35 mg-100 mg Tablet) 35 Mg-100 Mg Tablet, 1 TAB PO DAILY for Myelodysplasia 1 tablet by mouth once daily on days 1 to 5 of each 28-day treatment cycle Docusate Sodium (Dok) 100 Mg Capsule, 100 MG PO BID Doxycycline Monohydrate (Doxycycline Monohydrate) 50 Mg Tablet, 50 MG PO BID, (Reported) Enoxaparin Sodium (Lovenox) 80 Mg/0.8 Ml Syringe, 70 MG SC Q12H Ferrous Sulfate (Ferrous Sulfate) 325 Mg Tablet, 325 MG PO DAILY, (Reported) Ferrous Sulfate (Ferrous Sulfate) 325 Mg Tablet, 325 MG PO DAILY Gluc Gramajo/Chondro Gramajo A/Vit C/Mn (Glucosamine Chondroitin Tab) 1 Each Tablet, 1 TAB PO QPM, (Reported) AFTER DINNER Ipratropium/Albuterol Sulfate (Iprat-Albut 0.5-3(2.5) mg/3 ml) 3 Ml Ampul.neb, 3 ML NEB RQ6H Meclizine HCl (Meclizine HCl) 12.5 Mg Tablet, 12.5 MG PO TID, (Reported) Metoprolol Tartrate (Metoprolol Tartrate) 25 Mg Tablet, 25 MG PO Q6H Multivitamins (Thera M Plus Tablet) 1 Each Tablet, 1 TAB PO QPM, (Reported) AFTER DINNER Niacin (Inositol Niacinate) (Ra Niacin 500 mg Tablet) 500 Mg Tablet, 500 MG PO QPM, (Reported) AFTER DINNER Primrose-3 Fatty Acids (Primrose-3) 1,000 Mg Capsule, 1,000 MG PO QPM, (Reported) AFTER DINNER Pantoprazole Sodium (Pantoprazole Sodium) 40 Mg Tablet.dr, 40 MG PO DAILY, (Reported) Pantoprazole Sodium (Pantoprazole Sodium) 40 Mg Tablet.dr, 40 MG PO DAILY Svkbqqamxwet-Bwii-Oawqsbez,Iso (Zosyn 4.5 gm/100 ml Galaxy Bag) 4.5 Gm/100 Ml Froz.piggy, 1 DORA IV Q6H Simvastatin (Simvastatin) 40 Mg Tablet, 40 MG PO QHS, (Reported) Simvastatin (Simvastatin) 40 Mg Tablet, 40 MG PO QHS Timolol Maleate (Timolol Maleate) 0.5% 5ML Drops, 1 DROP OU DAILY, (Reported) Timolol Maleate (Timolol Maleate) 0.5% 5ML Drops, 1 DROP OU DAILY Vancomycin/Water For Inj (Peg) (Vancomycin 1 Gram/200 ml Bag) 1 Gm/200 Ml Piggyback, 1 GM IV Q8H Scheduled PRN Acetaminophen (Acetaminophen) 325 Mg Tablet, 650 MG PO Q6HP PRN for PAIN OR FEVER Betamethasone/Propylene Glyc (Betamethasone Dp Aug 0.05% Oin) 15 Gm Oint...g., 1 DOSE EXT BID PRN for DRY SKIN/ROSACEA, (Reported) Magnesium Hydroxide (Milk of Magnesia) 400 Mg/5 Ml Oral.susp, 30 ML PO DAILY PRN for CONSTIPATION Morphine Sulfate (Morphine Sulfate) 2 Mg/1 Ml Vial, 2 MG IV Q4HP PRN for CHEST PAIN Miscellaneous Medications [Patient Comment] , (Reported) MED REC COMPLETED VIA PHONE CALL WITH Allergies Coded Allergies: No Known Allergies (Unverified , 11/17/18) Deja Nuñez MD Sep 27, 2020 12:59
[2020-09-27] MEDS ORDERED: VANCOMYCIN HCL 750 MG, VIAL MATE ADAPTER 1 EACH in NS 250 ML IV SCH (13:00)
[2020-09-27] MEDS ORDERED: NS 1,000 ML IV SCH (13:15)
[2020-09-27] MEDS ORDERED: PRED20TA PO (13:25)
[2020-09-27] MEDS ORDERED: VANCOMYCIN HCL 500 MG in D5W MINI-BAG PLUS 100 ML IV SCH (14:00)
--- NOTE | 2020-09-28 08:10 | CCN ---
CRITICAL CARE NOTE DATE: 09/27/2020 START TIME: 829 STOP TIME: 910 SUBJECTIVE: I was asked to attend Randall Shon here in the intensive care unit. The patient has been examined and chart reviewed. I spoke at length with Dr. Nuñez regarding his care. I have also spoken with Dr. Bryan this morning. In essence, this is an 80-year-old gentleman known to me from the outpatient setting. He does have some underlying lung disease with some fibrotic changes, but is known to have very significant difficulties with coronary artery disease and aortic stenosis with a valve area of 0.9 cm2. He has recently started treatment for chronic myelomonocytic leukemia (CMML). He presented yesterday having been awoken from sleep not feeling well. He said he became acutely short of breath. He had some chest pain, which he is not able to delineate further for me. He presented to the ER. He was found to have a significant arrhythmia with new onset AFib with rapid ventricular response (RVR). Chest x-ray compared to priors was read as infiltrate. Certainly underlying edema cannot be discounted. He was also found to have a respiratory alkalosis and significant hypoxemia. He was initially treated with metoprolol in the ER, had a decline in his blood pressure, and worsening of his symptoms. He was then placed on CPAP. His oxygenation did improve. He was then given digoxin for better rate control. He remains in atrial fibrillation. This morning, he was able to be taken off the CPAP and placed on nasal cannula. VITAL SIGNS: Current blood pressure 106/50 with a heart rate in the 80s clearly atrial fibrillation, respiratory rate approximately 18 to 20 currently without accessory muscle use. Is and Os are inaccurately recorded. MEDICATIONS: List has been reviewed. He was empirically placed on vancomycin and Zosyn. OBJECTIVE: GENERAL APPEARANCE: On exam currently, he is awake, alert, and appropriate. He is able to give me a reasonable history. VITAL SIGNS: As outlined above. HEENT: Otherwise normocephalic, atraumatic. Pupils react. NECK: Supple. Trachea is in the midline. CHEST: Shows diminished, but symmetric expansion. There are some dependent crackles. No focal adventitious breath sounds. CARDIAC: Irregularly irregular. His aortic stenosis murmur is unchanged from my previous exams. Clearly radiates in the carotids. Peripheral pulses diminished, but palpable. ABDOMEN: Soft with active bowel sounds. No convincing organomegaly or masses. EXTREMITIES: No cyanosis or clubbing. NEUROLOGIC: He is awake, alert, and appropriate. PSYCHIATRIC: Normal mood and affect. LABORATORY DATA: White blood cell count this morning 19.3, hemoglobin 9.2, platelet count 161,000. Sodium 139, K 4.5, chloride 107, CO2 of 25, BUN 21, creatinine 1.24, glucose 205. Lactate, which presented as 2.9, ameya to 4.1 and is down to 3.8 this morning. Troponins went from presenting of 0.76 to 1.60 to 3.87 at 6 o'clock this morning. Blood gas done yesterday had a pH of 7.45, pCO2 of 29.5, pO2 of 70 on an unknown liter flow. INR 1.2. MRSA by PCR not detected and his entire respiratory panel is negative for viruses. IMAGING: Chest x-ray as outlined above. Of note is he has had no fever. ASSESSMENT: Most pressing problems requiring my presence at the bedside: 1. Hypoxemia multifactorial. 2. Underlying obstructive lung disease. 3. Mild fibrosis. 4. Chronic myelomonocytic leukemia (CMML). 5. Elevated troponins with known coronary artery disease. 6. Atrial fibrillation with rapid ventricular response (RVR) currently rate controlled. 7. Aortic stenosis. 8. High risk medications/recent chemotherapy. PLAN: At this point, he has responded to rate control and CPAP. He is currently on nasal cannula oxygen with reasonable saturations. I can certainly not discount a primary pneumonitis based on his x-ray; but the fact that he has had no fever it would be somewhat unusual. My major concern, however, is his known coronary artery disease, his very significant aortic stenosis now with atrial fibrillation and abnormal troponins. I have spoken with Dr. Nuñez, as well as with Dr. Bryan. At this point, I am not at all in disagreement with his empiric antimicrobials, but will send the procalcitonin. He can be off the CPAP for now as his oxygenation status has improved, and I believe rate control has played a significant role in that, and I do believe he has significant underlying pulmonary edema as a presenting issue. We will repeat a chest x-ray this morning as well. At this point, we will continue as outlined above. Decisions regarding transfer for further cardiac evaluation and anticoagulation will be left to the primary service and cardiology. I left the bedside at 0911 hours. CRITICAL CARE TIME: 41 minutes delivered at the bedside not including procedures.
--- NOTE | 2020-09-28 08:11 | CR ---
CONSULTATION DATE: 09/27/2020 REFERRING PHYSICIAN: ELIZABETH ZAVALA M.D. REASON FOR CONSULTATION: Chest pain, elevated troponin. HISTORY OF PRESENT ILLNESS: Mr. Menendez is known to me. He is an 80-year-old man who has known severe aortic stenosis and paroxysmal atrial fibrillation. He has recently been evaluated for anemia. Eventually was diagnosed with myelodysplastic syndrome and started chemotherapy just the day before yesterday. Yesterday, he presented to the Emergency Room after several hours of feeling cold and shaky together with having tightness in his chest and severe dyspnea. On presentation, he was found to be markedly tachycardic and received several doses of beta blockers. His initial EKG revealed sinus tachycardia with ventricular ectopy and very apparent ischemic abnormalities with close to [address] segment depressions in the precordial leads. He was treated with respiratory support and admitted. Overnight, his condition improved, the heart rate came down and it was felt that he converted to sinus rhythm even though I did not find in the documentation evidence for atrial fibrillation to start with. When I saw him at the bedside, he tells me that he is feeling much improved but he says recently he has had episodes of exertional chest discomfort that he describes as tightness. He says that he could not walk more than 20 or 30 feet and it has been like that for several weeks. There also would be associated shortness of breath but currently the discomfort resolved. PAST MEDICAL HISTORY: 1. Aortic stenosis based on echocardiogram several months ago, the mean gradient was 36 mmHg. 2. Paroxysmal atrial fibrillation. 3. COPD. 4. Myelodysplastic syndrome. PAST SURGICAL HISTORY: 1. Cholecystectomy. 2. Carpal tunnel surgery. FAMILY HISTORY: A sister had lung cancer. SOCIAL HISTORY: The patient is . He lives with his . There is a remote history of smoking. No alcohol use. OUTPATIENT MEDICATIONS: 1. Tylenol as needed. 2. Vitamin C 500 a day. 3. Aspirin 81 mg daily. 4. Symbicort inhaler twice a day. 5. Calcium carbonate with vitamin D 3 500/200 mg daily. 6. Vitamin D3 1000 units daily. 7. Restasis eyedrops. 8. Inqovi which is the new chemotherapy for myelodysplastic syndrome just started yesterday. 9. Docusate 10.Doxycycline 50 twice a day. 11.Iron sulfate 325 a day. 12.Meclizine. 13.Multivitamin. 14.Since his hospitalization he was also given both IV and oral steroids. He also was started on antibiotics and Lovenox. REVIEW OF SYSTEMS: At home, he had chills. He had shortness of breath. He had weakness and occasional dizziness but no syncope. He felt that this similar discomfort that he had last night he had on numerous occasions over the last several weeks but with much lesser intensity. The rest of the review of systems is per HPI, otherwise negative. PHYSICAL EXAMINATION: GENERAL: Mr. Menendez is a pleasant elderly man. He appears pale but does not appear in any acute distress. He is in the ICU bed with nasal cannula with 2 liters of oxygen being administered. VITAL SIGNS: Blood pressure is 133/60, heart rate in the 80s and 90s, saturation is in the high 90s on 2 liters of oxygen. His fluid balance was recorded at 300 today, weight was recorded at 73.9 kg. He is alert and oriented and appropriate. NECK: His JVP is not high. LUNGS: He has Velcro type of crackles throughout both lung pearl. I do not appreciate any wheezing. HEART: Regular rhythm. There is approximately 2-3/6 intensity systolic murmur best heard over the aortic valve. The second aortic sound is diminished. I do not appreciate any diastolic murmur. ABDOMEN: Soft, nontender. No hepatosplenomegaly. EXTREMITIES: Free of edema. Peripheral pulses are palpable. NEUROLOGIC: He is intact but has generalized weakness. LABORATORY DATA: CBC: WBC count 19.3, hemoglobin 9.2, hematocrit 29.3, platelet count 161,000. Basic metabolic panel: Sodium was 139, potassium 4.5, BUN 21, creatinine 1.2, glucose 205. Lactic acid on admission was 2.9 but has risen to the most recent one of 4.1. Magnesium 1.9, normal liver function tests, troponin I on admission was 0.09, has risen to 3.87 as of this morning. Albumin was 2.8. There are three EKGs on the chart. The initial one I described in the history of present illness, the follow-ups reveal improvement in ST segment depression and last one is essentially normal. Chest x-ray revealed diffuse interstitial abnormalities, cannot rule out congestive heart failure, no obvious cardiomegaly. There is atherosclerosis in the thoracic aorta. I do not appreciate any distinct infiltrate. ASSESSMENT AND PLAN: Mr. Menendez is an 80-year-old man who has severe aortic stenosis. We were in the process of setting him up for further evaluation but then he was diagnosed with anemia and I was waiting until the evaluation of anemia is completed. Now, we know he has myelodysplastic syndrome and not GI bleeding (he had a negative upper and lower endoscopy). He presents with fairly sudden onset of shortness of breath, chest discomfort and chills and on admission very tachycardic with severe ischemic abnormalities on EKG that eventually led to troponin elevation. I do believe that he needs fairly urgent coronary angiography with further TAVR or possibly even coronary intervention to follow. It is likely that this represents demand ischemia brought on by tachycardia, anemia and severe aortic stenosis but I certainly cannot rule out that there is also underlying coronary artery disease. I discussed this with the patient and he is eager to proceed because he appreciates that his condition has been deteriorating rapidly. I spoke also with his daughter and Dr. Zavala, and attending physician. There is the expectation that he will be transferred later today. I communicated with Dr. Douglas in [place] and gave him the history and presentation. [facility]ALS[facility]
--- NOTE | 2020-09-28 14:07 | ECHO ---
DATE OF PROCEDURE: 09/27/2020 Age: 80 Gender: Male Height: 70 inches Weight: 163 pounds Body surface area: 1.92 m2 PATIENT LOCATION: Inpatient ICU, Room 3206. REFERRING PHYSICIAN: Deja Nuñez M.D. INDICATION: Dyspnea. MEASUREMENTS: 2D Measurements: RV 3.6 cm LV 4.6 cm Septum 1.3 cm Posterior wall 1.3 cm Aortic Root 4.0 cm LA 4.7 cm LVEF 65% Doppler Measurements: AV 3.73 m/s LVOT 0.85 m/s Mean AV gradient 33 mmHg Dimensionless index 0.24 MV-E 152, A 159, E/A ratio 1 Early mitral deceleration time 185 msec E prime medial 4.6, A prime medial 7.6, E prime lateral 7.7 Average E/E prime ratio 24.7/PCWP 32.5 mmHg PV 0.8 m/s Pulmonary artery acceleration time 85 msec RVSP 62 mmHg IVC 1.9 cm COMMENTS: Normal sinus rhythm without intraventricular conduction disturbance. M-mode and two-dimensional echocardiography was performed with pulse, continuous wave, color flow, and tissue Doppler studies. Mild concentric left ventricular hypertrophy with normal wall motion. Moderately dilated left atrium with grade 1 LV diastolic dysfunction and elevated estimated mean left atrial pressure. Normal right ventricular cavity size, but mild right ventricular free wall thickness. Normal wall motion and Doppler evidence of moderately severe pulmonary hypertension. Mildly dilated right atrium with IVC size upper limits of normal with adequate respiratory collapse against a significantly elevated central venous pressure at this time. Mildly dilated aortic root, but normal ascending aortic diameter. Severe calcific aortic stenosis with trace aortic insufficiency. 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 At least mild to moderate mitral insufficiency. Normal appearing tricuspid valve with at least moderate tricuspid insufficiency. No apparent intracardiac mass or pericardial effusion. Based on the above test findings, he should be seriously considered for aortic valve replacement. With his observed significant pulmonary hypertension, he may be a good candidate for a transaortic valve replacement (TAVR). [facility]
== END 2020-09-27 17:41 | disposition short-term general hospital (02) | DRG 871 ==
LOC: M ED 19:27 → M ED INP 23:45 → ENRESERV 09-27 00:01 → M ICU 09-27 00:55
PROVIDERS: ADMIT Family Medicine; ATTEND Internal Medicine
DX: A41.9 Sepsis, unspecified organism (principal); J18.9 Pneumonia, unspecified organism; J44.1 Chronic obstructive pulmonary disease with (acute) exacerbation; J44.0 Chronic obstructive pulmonary disease with (acute) lower respiratory infection; C93.10 Chronic myelomonocytic leukemia not having achieved remission; I48.91 Unspecified atrial fibrillation; I25.10 Atherosclerotic heart disease of native coronary artery without angina pectoris; I35.0 Nonrheumatic aortic (valve) stenosis; R74.8 Abnormal levels of other serum enzymes; D50.9 Iron deficiency anemia, unspecified; J84.10 Pulmonary fibrosis, unspecified; Z90.49 Acquired absence of other specified parts of digestive tract; Z87.891 Personal history of nicotine dependence; Z20.822 Contact with and (suspected) exposure to COVID-19; Z79.82 Long term (current) use of aspirin; Z79.52 Long term (current) use of systemic steroids; Z79.899 Other long term (current) drug therapy